=== PATIENT | female | born 1965 | race Caucasian/White ===

== ENCOUNTER 2016-10-11 12:10 | Observation (INO) | payer MEDICAID ==
[2016-10-11 12:16] VITALS: RESP 18
--- NOTE | 2016-10-11 12:56 | C.PDOC ---
History Of Present Illness 51-year-old female, PMHx includes Diabetes, presents to the emergency department with complaints of pain due to sunburn. States sunscreen did not work. Patient notes no relief with NSAID last night, and reports a mild headache. Patients secondary complaint is an asthma exacerbation, and she is requesting a treatment. Denies fevers, chest pain, nausea/vomiting, or chills. Time Seen by Provider: 10/11/16 12:50 Chief Complaint (Nursing): Dizziness/Lightheaded History Per: Patient History/Exam Limitations: no limitations Onset/Duration Of Symptoms: Days Current Symptoms Are (Timing): Still Present Past Medical History Reviewed: Historical Data, Nursing Documentation, Vital Signs Vital Signs: Last Vital Signs Temp 97.6 F 10/11/16 14:54 Pulse 77 10/11/16 14:54 Resp 18 10/11/16 14:54 BP 107/70 10/11/16 14:54 Pulse Ox 99 10/11/16 15:30 - Medical History PMH: Asthma, Diabetes (IDDM), Seizures Surgical History: Cholecystectomy Family History: States: No Known Family Hx - Social History Hx Tobacco Use: No Hx Alcohol Use: Yes Hx Substance Use: No - Immunization History Hx Tetanus Toxoid Vaccination: Yes Hx Influenza Vaccination: Yes Hx Pneumococcal Vaccination: Yes Review Of Systems Except As Marked, All Systems Reviewed And Found Negative. Constitutional: Negative for: Fever Cardiovascular: Negative for: Chest Pain Respiratory: Positive for: Shortness of Breath, Wheezing Gastrointestinal: Negative for: Nausea, Vomiting Skin: Positive for: Other (sunburn) Physical Exam - Physical Exam Appears: Non-toxic Skin: Warm, Other (FIRST DEGREE ROCHE TO FACE, CHEST, B/L ARMS, UPPER BACK AND B /L LEGS) Head: Atraumatic, Normacephalic Eye(s): bilateral: Normal Inspection Nose: Normal Oral Mucosa: Moist Lips: Normal Appearing Neck: Normal ROM Cardiovascular: Rhythm Regular, No Murmur Respiratory: Decreased Breath Sounds (B/L), No Accessory Muscle Use, Wheezing ( expiratory B/L), Other (No retractions) Extremity: Normal ROM Neurological/Psych: Oriented x3, Normal Speech ED Course And Treatment O2 Sat by Pulse Oximetry: 99 ED OBSERVATION Discharge: Yes Date of observation admission: 10/11/16 Time of observation admission: 12:45 - Observation admission statement Patient is being placed in observation because:: SUNBURN, HUNG; ASTHMA - Goals of Observation Goals of observation are:: SX IMPROVE - Progress Note Progress Note: 10/11/16 14:26 FEELS BETTER, REQUESTING ANTI ITCH MEDS. Disposition Counseled Patient/Family Regarding: Diagnosis, Need For Followup, Rx Given - Disposition Disposition: HOME/ ROUTINE Disposition Time: 14:27 Condition: IMPROVED - Clinical Impression Clinical Impression: Asthma exacerbation, Sunburn of first degree - PA / SUBSTANCE ADDICTION COORDINATOR / Resident Statement MD/DO has reviewed & agrees with the documentation as recorded. - Scribe Statement The provider has reviewed the documentation as recorded by the Scribe (William Whitfield) All medical record entries made by the Scribe were at my direction and personally dictated by me. I have reviewed the chart and agree that the record accurately reflects my personal performance of the history, physical exam, medical decision making, and the department course for this patient. I have also personally directed, reviewed, and agree with the discharge instructions and disposition.
[2016-10-11] MEDS ORDERED: Albuterol 0.083% Inhal Sol (2.5 mg/3 mL) UD INH STA ×3 (13:06→13:09)
[2016-10-11] MEDS ORDERED: Sodium Chloride 0.9% 1,000 ML IV ONE (13:07)
[2016-10-11] MEDS ORDERED: Albuterol 0.083% Inhal Sol (2.5 mg/3 mL) UD ONE (13:10)
[2016-10-11] MEDS ORDERED: Morphine 4 MG/ML VIAL ONE (13:16)
[2016-10-11] MEDS ORDERED: Sodium Chloride 0.9% 1,000 ML ONE (13:16)
[2016-10-11] MEDS ORDERED: DiphenhydrAMINE 50 mg/ml Inj ONE (14:15)
[2016-10-11] MEDS ORDERED: DiphenhydrAMINE 50 mg/ml Inj IVP STA (14:21)
[2016-10-11 14:54] VITALS: BP 107/70; PULSE 77; TEMP 97.6
[2016-10-11 15:31] VITALS: O2SAT 99
== END 2016-10-11 14:28 | disposition home or self-care (01) ==
LOC: C.ER 12:10 → C.9OBSV 12:45
PROVIDERS: ADMIT Emergency Medicine; ATTEND Emergency Medicine
DX: L55.0 Sunburn of first degree (principal); Z79.4 Long term (current) use of insulin; E11.9 Type 2 diabetes mellitus without complications; J45.901 Unspecified asthma with (acute) exacerbation
CPT/HCPCS: 96361; 96374; 96375; 99285; G0378; J1200; J1885; J2270; J7040

== ENCOUNTER 2016-10-27 21:47 | Emergency (ER) | payer MEDICAID ==
[2016-10-27 22:17] VITALS: TEMP 98
--- NOTE | 2016-10-27 22:31 | C.PDOC ---
History Of Present Illness 51F c/o headache that started 40 minutes prior. she says she gets seizures since age 21, about once a year, and they always started with this same headache. she also feels a "warm sensation" in her left arm and leg, also sx she normally gets before her seizures. she takes her meds daily but says she vomited after taking them this am. Time Seen by Provider: 10/27/16 22:19 Chief Complaint (Nursing): Headache Past Medical History Vital Signs: Last Vital Signs Temp 98 F 10/27/16 23:56 Pulse 74 10/27/16 23:56 Resp 16 10/27/16 23:56 BP 127/81 10/27/16 23:56 Pulse Ox 100 10/27/16 23:56 - Medical History PMH: Asthma, Diabetes (IDDM), Seizures Surgical History: Cholecystectomy Family History: States: Other Other Family History: nc - Social History Hx Tobacco Use: No Hx Alcohol Use: Yes Hx Substance Use: No - Immunization History Hx Tetanus Toxoid Vaccination: Yes Hx Influenza Vaccination: Yes Hx Pneumococcal Vaccination: Yes Review Of Systems Constitutional: Negative for: Fever, Chills ENT: Negative for: Throat Swelling Cardiovascular: Negative for: Chest Pain Respiratory: Negative for: Cough, Shortness of Breath Gastrointestinal: Positive for: Nausea. Negative for: Vomiting, Abdominal Pain Genitourinary: Negative for: Dysuria, Frequency Neurological: Positive for: Headache. Negative for: Weakness, Numbness, Altered Mental Status Physical Exam - Physical Exam Appears: Well, Non-toxic, No Acute Distress Skin: Warm, Dry Head: Atraumatic Eye(s): bilateral: PERRL, EOMI Nose: No Epistaxis Oral Mucosa: Moist Tongue: No Swelling Lips: No Swelling Cardiovascular: Rhythm Regular Respiratory: No Decreased Breath Sounds, No Accessory Muscle Use, No Rales, No Rhonchi, No Wheezing Gastrointestinal/Abdominal: Soft, No Tenderness Pulses: Left Radial: Normal Neurological/Psych: Oriented x3, Normal Cranial Nerves, No Cerebellar Signs, Normal Motor, Normal Sensation, Other (no focal deficits) ED Course And Treatment - Laboratory Results Result Diagrams: 10/27/16 22:53 10/27/16 22:53 O2 Sat by Pulse Oximetry: 99 Medical Decision Making Medical Decision Makinam pt feels better. Disposition - Disposition Referrals: Non [facility] Provider, [Primary Care Provider] - Disposition: HOME/ ROUTINE Disposition Time: 02:33 Condition: IMPROVED - Clinical Impression Clinical Impression: Headache
[2016-10-27] MEDS ORDERED: DiphenhydrAMINE 50 mg/ml Inj IVP STA (22:44)
[2016-10-27] MEDS ORDERED: Sodium Chloride 0.9% 1,000 ML IV ONE (22:44)
[2016-10-27 22:57] LABS: BASO # 0.1 K/uL (0.0-0.2); BASO % 0.8 % (0.0-2.0); EOS # 0.3 K/uL (0.0-0.7); EOS % 2.5 % (0.0-4.0); HEMOGLOBIN 11.3 g/dL (11.0-16.0); LYMPH # 3.3 K/uL (1.0-4.3); LYMPH % 28.1 % (20.0-40.0); MEAN CORPUSCULAR HEMOGLOBIN 24.1 pg (27.0-31.0); MEAN CORPUSCULAR HGB CONC 31.3 g/dL (33.0-37.0); MEAN PLATELET VOLUME 9.1 fL (7.2-11.7); MONO # 0.4 K/uL (0.0-0.8); MONO % 3.8 % (0.0-10.0); NEUT # 7.6 K/uL (1.8-7.0); NEUT % 64.8 % (50.0-75.0); RBC 4.69 Mil/uL (3.80-5.20); WHITE BLOOD COUNT 11.7 K/uL (4.8-10.8)
[2016-10-27] MEDS ORDERED: DiphenhydrAMINE 50 mg/ml Inj ONE (23:05)
[2016-10-27 23:07] LABS: ALB/GLOB RATIO 1.1 (1.0-2.1); ALT/SGPT 26 U/L (9-52); AST/SGOT 22 U/L (14-36); BLOOD UREA NITROGEN 6 mg/dL (7-17); GFR AFRICAN-AMERICAN > 60; GFR NON-AFRICAN AMERICAN > 60
[2016-10-27 23:08] LABS: CALCIUM 8.6 mg/dl (8.6-10.4)
--- NOTE | 2016-10-27 23:41 | CT ---
EXAM: CT Head Without Intravenous Contrast CLINICAL HISTORY: 51 years old, female; Pain; Headache; Patient HX: 03-20-15. Faxed already TECHNIQUE: Axial computed tomography images of the head/brain without intravenous contrast. This CT exam was performed using one or more of the following dose reduction techniques: automated exposure control, adjustment of the mA and/or kV according to patient size, and/or use of iterative reconstruction technique. COMPARISON: CT - HEAD W/O CONTRAST 03/20/2015 4:47:26 PM FINDINGS: Brain: No acute intracranial hemorrhage. No significant white matter disease. No edema. Ventricles: No significant ventriculomegaly. Bones: No acute displaced fracture. Sinuses: Mucoperiosteal thickening is identified within the bilateral ethmoid and right sphenoid sinuses. Mastoid air cells: Unremarkable as visualized. No mastoid effusion. IMPRESSION: No acute intracranial hemorrhage, or suspicious mass effect. Inflammatory sinus disease.
[2016-10-27 23:54] LABS: SQUAMOUS EPITHIAL < 1 /hpf (0-5); URINE BACTERIA RARE (<OCC); URINE BILIRUBIN NEGATIVE (NEGATIVE); URINE BLOOD 3+ (NEGATIVE); URINE CLARITY Clear (Clear); URINE COLOR Yellow (YELLOW); URINE GLUCOSE (UA) NORMAL (Normal); URINE LEUKOCYTE ESTERASE NEG Leu/uL (Negative); URINE NITRATE NEGATIVE (NEGATIVE); URINE PROTEIN NEGATIVE (NEGATIVE); URINE UROBILINOGEN NORMAL mg/dL (0.2-1.0)
[2016-10-27 23:57] VITALS: BP 127/81
[2016-10-28 03:08] VITALS: PULSE 78; RESP 20; O2SAT 100
== END 2016-10-28 03:05 | disposition home or self-care (01) ==
LOC: C.ER 21:47 → SUPCPDRO 21:47 → C.ER 10-28 03:05
DX: R51 Headache (principal)
CPT/HCPCS: 70450; 80053; 81001; 85025; 96374; 96375; 99284; J1200; J2765; J7040

== ENCOUNTER 2017-01-02 12:17 | Emergency (ER) | payer MEDICAID ==
[2017-01-02] MEDS ORDERED: Albuterol-Ipratrop 3 mg / 0.5 (3 ml) UD ONE (12:57)
[2017-01-02] MEDS ORDERED: Albuterol-Ipratrop 3 mg / 0.5 (3 ml) UD INH STA (14:19)
--- NOTE | 2017-01-02 14:45 | C.PDOC ---
History Of Present Illness 51 y/o female with Hx of Asthma, DM and seizures presents to ED with complaints of vomiting for 3 days, dizziness, sob, full body aches and adnexal tenderness since last night. Patient also reports headaches with associated "feeling of room spinning that lasts 5 minutes". Pain is 8/10 non radiating and also states she has cough while in bed and has to use albuterol more frequently. Patient state she had her menses yesterday after 3 months and reports positive test. No other complaints at this time. Time Seen by Provider: 01/02/17 13:52 Chief Complaint (Nursing): Shortness Of Breath History Per: Patient History/Exam Limitations: no limitations Onset/Duration Of Symptoms: Days Current Symptoms Are (Timing): Still Present Past Medical History Reviewed: Historical Data, Nursing Documentation, Vital Signs Vital Signs: Last Vital Signs Temp 97.9 F 01/02/17 12:40 Pulse 85 01/02/17 12:40 Resp 20 01/02/17 12:40 BP 119/88 01/02/17 12:40 Pulse Ox 98 01/02/17 14:48 - Medical History PMH: Asthma, Diabetes (IDDM), Seizures Surgical History: Cholecystectomy Family History: States: No Known Family Hx - Social History Hx Tobacco Use: No Hx Alcohol Use: Yes Hx Substance Use: No - Immunization History Hx Tetanus Toxoid Vaccination: Yes Hx Influenza Vaccination: Yes Hx Pneumococcal Vaccination: Yes Review Of Systems Except As Marked, All Systems Reviewed And Found Negative. Constitutional: Negative for: Fever, Chills Respiratory: Positive for: Shortness of Breath Gastrointestinal: Positive for: Vomiting. Negative for: Nausea, Abdominal Pain Genitourinary: Negative for: Dysuria, Frequency Musculoskeletal: Negative for: Back Pain Skin: Negative for: Rash Neurological: Positive for: Headache, Dizziness. Negative for: Weakness, Numbness Physical Exam - Physical Exam Appears: Other (morbidly obese) Skin: Warm, Dry, No Rash Head: Atraumatic Eye(s): bilateral: Normal Inspection Oral Mucosa: Moist Neck: Normal ROM, Supple Chest: Symmetrical Cardiovascular: Rhythm Regular, No Murmur Respiratory: No Rales, No Rhonchi, Wheezing Gastrointestinal/Abdominal: Soft, Tenderness (adnexal), No Guarding, No Rebound Back: No CVA Tenderness, No Paraspinal Tenderness Neurological/Psych: Oriented x3 ED Course And Treatment - Laboratory Results Lab Interpretation: Abnormal (UA with blood and few WBC's c/w MP) Urine POC: Negative O2 Sat by Pulse Oximetry: 98 (RA) Pulse Ox Interpretation: Normal Reevaluation Time: 15:22 Reassessment Condition: Improved Medical Decision Making Medical Decision Making: mild asthma exacerbation with ? mild viral syndrome defer PO steroids for pt with poor nebulizer compliance @ home and overall benign presentation Pt NOT . Disposition Doctor Will See Patient In The: Office Counseled Patient/Family Regarding: Studies Performed, Diagnosis - Disposition Disposition: HOME/ ROUTINE Disposition Time: 15:23 Condition: GOOD Forms: [facility] (Danish) - Clinical Impression Clinical Impression: Asthma, Viral syndrome, Irregular menstrual bleeding - Scribe Statement The provider has reviewed the documentation as recorded by the Harris Cespedes All medical record entries made by the Harris were at my direction and personally dictated by me. I have reviewed the chart and agree that the record accurately reflects my personal performance of the history, physical exam, medical decision making, and the department course for this patient. I have also personally directed, reviewed, and agree with the discharge instructions and disposition.
[2017-01-02 14:50] LABS: RBC URINE 79 /hpf (0-3); URINE BILIRUBIN NEGATIVE (NEGATIVE); URINE BLOOD 3+ (NEGATIVE); URINE COLOR Yellow (YELLOW); URINE GLUCOSE (UA) NORMAL (Normal); URINE KETONE NEGATIVE (NEGATIVE); URINE LEUKOCYTE ESTERASE 2+ Leu/uL (Negative); URINE PROTEIN 1+ mg/dL (NEGATIVE); URINE UROBILINOGEN NORMAL mg/dL (0.2-1.0); WBC URINE 41 /hpf (0-5)
[2017-01-02 15:47] VITALS: BP 122/78; PULSE 81; RESP 18; TEMP 98.1; O2SAT 99
== END 2017-01-02 15:47 | disposition home or self-care (01) ==
LOC: C.ER 12:17
DX: J45.909 Unspecified asthma, uncomplicated (principal); B34.9 Viral infection, unspecified; N92.6 Irregular menstruation, unspecified

== ENCOUNTER 2017-01-31 23:30 | Inpatient (IN) | payer MEDICAID ==
--- NOTE | 2017-01-31 23:34 | C.PDOC ---
History Of Present Illness patient presents with increased wheezing, speaking in complete sentences. No f/c /n/v. States that she got short of breath. Arrived via BLS. Nebulizer treatments initiated Time Seen by Provider: 01/31/17 23:33 History/Exam Limitations: no limitations Onset/Duration Of Symptoms: Hrs (1) Current Symptoms Are (Timing): Worse Associated Symptoms: Dyspnea, Cough, Other (wheezing) Preciptating Factors: None Severity: Severe Pain Scale Rating Of: 8 Recent travel outside of the [place]: No Additional History Per: EMS, Family - Asthma History Medication Use: Daily Rescue Medications: See Home Medication List Control Medications: See Home Medication List Past Medical History Reviewed: Historical Data, Nursing Documentation, Vital Signs Vital Signs: Last Vital Signs Temp 98.0 F 01/31/17 23:30 Pulse 91 H 01/31/17 23:30 Resp 20 01/31/17 23:35 BP 149/92 H 01/31/17 23:30 Pulse Ox 100 02/01/17 00:22 - Medical History PMH: Asthma, Diabetes (IDDM), Seizures Surgical History: Cholecystectomy Family History: States: No Known Family Hx - Social History Hx Tobacco Use: No Hx Alcohol Use: Yes Hx Substance Use: No - Immunization History Hx Tetanus Toxoid Vaccination: Yes Hx Influenza Vaccination: Yes Hx Pneumococcal Vaccination: Yes Review Of Systems Constitutional: Negative for: Fever, Chills Eyes: Negative for: Vision Change ENT: Negative for: Throat Pain Cardiovascular: Negative for: Chest Pain, Palpitations Respiratory: Positive for: Shortness of Breath, Wheezing Gastrointestinal: Positive for: Abdominal Pain (rlq). Negative for: Nausea, Vomiting Genitourinary: Negative for: Dysuria Musculoskeletal: Negative for: Back Pain Skin: Negative for: Rash, Lesions Neurological: Negative for: Weakness Psych: Negative for: Anxiety Physical Exam - Physical Exam Appears: In Acute Distress Skin: Warm, Dry Head: Normacephalic Eye(s): bilateral: Normal Inspection Nose: Normal Oral Mucosa: Moist Neck: Trachea Midline, Supple Chest: Symmetrical Cardiovascular: Rhythm Regular Respiratory: Decreased Breath Sounds, No Rales, No Rhonchi, Wheezing Gastrointestinal/Abdominal: Soft, Tenderness (rlq, morbidly obese), No Guarding Back: Normal Inspection Extremity: Normal ROM Extremity: Bilateral: Atraumatic, Normal Color And Temperature Pulses: Left Dorsalis Pedis: Normal, Right Dorsalis Pedis: Normal Neurological/Psych: Oriented x3, Normal Speech, Normal Cognition Gait: Unable To Assess ED Course And Treatment - Laboratory Results Result Diagrams: 01/31/17 23:39 01/31/17 23:39 ECG: Interpreted By Me, Viewed By Me ECG Rhythm: Sinus Rhythm (80), Nonspecific Changes O2 Sat by Pulse Oximetry: 100 Pulse Ox Interpretation: Normal - Radiology CXR: Interpreted by Me, Viewed By Me CXR Interpretation: Yes: Other (top nl heart, ? lll small effusion). No: Infiltrates, Fracture, Pnemothorax Progress Note: pt refused abg. 12:10 feels better. much better air movement and less wheezing Critical Care Time - Critical Care Note Total Time (in mins): 30 Documented critical care: time excludes all time spent performing seperately billable procedures. Disposition Discussed With Dr.: Cesar Vasquez Comment: accepted the pt on his service and took over the care at 12:54 AM Doctor Will See Patient In The: ED Counseled Patient/Family Regarding: Studies Performed, Diagnosis - Disposition Disposition: HOSPITALIZED Disposition Time: 23:34 Condition: GUARDED - POA Present On Arrival: None - Clinical Impression Clinical Impression: Exacerbation of asthma Decision To Admit - Pt Status Changed To: Hospital Disposition Of: Inpatient - Admit Certification Admit to Inpatient:: After my assessment, the patient will require hospitalization for at least two midnights. This is because of the severity of symptoms shown, intensity of services needed, and/or the medical risk in this patient being treated as an outpatient. - InPatient: Physician Admission Certification:: After my assessment, the patient will require hospitalization for at least two midnights. This is because of the severity of symptoms shown, intensity of services needed, and/or the medical risk in this patient being treated as an outpatient. - . Bed Request Type: Regular Admitting Physician: Cesar Vasquez Patient Diagnosis: Exacerbation of asthma
[2017-01-31] MEDS ORDERED: Albuterol-Ipratrop 3 mg / 0.5 (3 ml) UD ONE ×2 (23:35→23:49)
[2017-01-31] MEDS ORDERED: Sodium Chloride 0.9% 1,000 ML IV ONE (23:35)
[2017-01-31 23:36] VITALS: BMI 56.7
[2017-01-31 23:42] LABS: BASO # 0.1 K/uL (0.0-0.2); BASO % 0.6 % (0.0-2.0); EOS # 0.3 K/uL (0.0-0.7); EOS % 3.1 % (0.0-4.0); HEMATOCRIT 34.7 % (34.0-47.0); LYMPH # 4.1 K/uL (1.0-4.3); LYMPH % 37.7 % (20.0-40.0); MEAN CELL VOLUME 76.4 fL (81.0-99.0); MEAN CORPUSCULAR HEMOGLOBIN 24.9 pg (27.0-31.0); MEAN CORPUSCULAR HGB CONC 32.7 g/dL (33.0-37.0); MEAN PLATELET VOLUME 8.7 fL (7.2-11.7); MONO # 0.5 K/uL (0.0-0.8); MONO % 5.1 % (0.0-10.0); RED CELL DISTRIBUTION WIDTH 16.1 % (11.5-14.5); WHITE BLOOD COUNT 10.8 K/uL (4.8-10.8)
[2017-01-31] MEDS: Albuterol-Ipratrop 3 mg / 0.5 (3 ml) UD IH SCH (23:50)
[2017-01-31 23:52] LABS: CHLORIDE 102 mmol/L (98-107); POTASSIUM 3.9 mmol/L (3.6-5.2); SODIUM 138 mmol/L (132-148)
[2017-01-31 23:54] LABS: AST/SGOT 18 U/L (14-36); BILIRUBIN,TOTAL 0.6 mg/dL (0.2-1.3); CARBON DIOXIDE 24 mmol/L (22-30); GFR AFRICAN-AMERICAN > 60
[2017-01-31 23:55] LABS: ALB/GLOB RATIO 0.9 (1.0-2.1); ALKALINE PHOSPHATASE 83 U/L (38-126); ALT/SGPT 27 U/L (9-52); BLOOD UREA NITROGEN 5 mg/dL (7-17); CALCIUM 8.9 mg/dl (8.6-10.4); GLUCOSE,RANDOM 104 mg/dL (65-105); TOTAL PROTEIN 8.3 g/dL (6.3-8.3)
[2017-02-01] MEDS: Albuterol-Ipratrop 3 mg / 0.5 (3 ml) UD IH SCH ×2 (00:05→00:20)
[2017-02-01 00:17] LABS: VENOUS BLOOD GAS BASE EXCESS 4.3 mmol/L (0.0-2.0); VENOUS BLOOD GAS PCO2 47 mmHg (40-60); VENOUS BLOOD PH 7.41 (7.32-7.43)
[2017-02-01] MEDS ORDERED: Albuterol-Ipratrop 3 mg / 0.5 (3 ml) UD ONE (00:44)
--- NOTE | 2017-02-01 03:23 | CP.PCM.HP ---
<Tran PoseyJennifer - Last Filed: 02/01/17 03:23> History of Present Illness - History of Present Illness History of Present Illness: Patient is a 51 years old female with a past medical history of asthma, DM, and seizures, who presents to the ED with shortness of breath, cough, and wheezing. Patient reports her symptoms started Monday when she was cleaning her room. She says she uses Ventolin and Dulera 2-3 times daily and a nebulizer about once per day. She states she used her inhalers when her symptoms worsened on Monday, but they only minimally helped. She also reports she has chest tightness, a fast heart beat, and feels tired. She says her symptoms are better when she lays down. Patient states that she started to have RUQ and RLQ pain 1- 2 hours prior to coming to the hospital. She describes the pain as sharp, intermittent and radiates to the center of her back. Patient admits to having increased urinary frequency and mild pain with urination that started today. Patient currently denies having chest pain, fevers, weakness, dizziness, sore throat, nausea, vomiting, hematuria, diarrhea, constipation, and hemoptysis PMD: Dr. Sonya Wallace PMHx: Asthma, DM, Seizure disorder SurgHx: Cholecystectomy (20+ years ago) FamHx: "everyone in the family has had strokes"; "cancer runs in the family" ( unknown type) SocHx: denies tobacco and drug use; social alcohol use; lives with two children in house; unemployed-disabled Allergies: NKDA Medications: Ventolin Inhaler, Dulera inhaler, Nebulizer, Insulin 18units AM&PM , Dilantin 100mg AM&PM Present on Admission - Present on Admission Any Indicators Present on Admission: No Review of Systems - Constitutional Constitutional: Fatigue, Headache. absent: Chills, Excessive Sweating, Fever, Weakness - EENT Eyes: absent: Change in Vision Ears: absent: Dizziness - Cardiovascular Cardiovascular: Dyspnea, Dyspnea on Exertion, Rapid Heart Rate. absent: Chest Pain, Leg Edema, Palpitations - Respiratory Respiratory: Cough (white phlegm), Dyspnea, Wheezing. absent: Hemoptysis, Excessive Mucous Production, Change in Mucous Color - Gastrointestinal Gastrointestinal: Abdominal Pain (RUQ & RLQ). absent: Constipation, Diarrhea, Nausea, Vomiting - Genitourinary Genitourinary: Dysuria, Urinary Frequency. absent: Hematuria, Pyuria - Musculoskeletal Musculoskeletal: Back Pain (Abdominal pain radiates to center of back) - Endocrine Endocrine: Fatigue. absent: Palpitations - Hematologic/Lymphatic Hematologic: Easy Bleeding, Easy Bruising Past Patient History - Infectious Disease Hx of Infectious Diseases: None - Past Medical History & Family History Past Medical History?: Yes - Past Social History Smoking Status: Never Smoked - CARDIAC Other/Comment: [place] - PULMONARY Hx Respiratory Disorders: Yes Hx Asthma: Yes - NEUROLOGICAL Hx Neurological Disorder: Yes Hx Seizures: Yes - HEENT Hx HEENT Problems: No - RENAL Hx Chronic Kidney Disease: No - ENDOCRINE/METABOLIC Hx Endocrine Disorders: Yes Hx Diabetes Mellitus Type 2: Yes - HEMATOLOGICAL/ONCOLOGICAL Hx Blood Disorders: No - INTEGUMENTARY Hx Dermatological Problems: No - MUSCULOSKELETAL/RHEUMATOLOGICAL Hx Musculoskeletal Disorders: No Hx Falls: No - GASTROINTESTINAL Hx Gastrointestinal Disorders: No - GENITOURINARY/GYNECOLOGICAL Hx Genitourinary Disorders: No - PSYCHIATRIC Hx Psychophysiologic Disorder: No Hx Substance Use: No - SURGICAL HISTORY Hx Surgeries: Yes Hx Cholecystectomy: Yes - ANESTHESIA Hx Anesthesia: Yes Hx Anesthesia Reactions: No Hx Malignant Hyperthermia: No Meds Allergies/Adverse Reactions: Allergies Allergy/AdvReac Type Severity Reaction Status Date / Time No Known Allergies Allergy Verified 01/02/17 12:44 Physical Exam - Head Exam Head Exam: ATRAUMATIC, NORMAL INSPECTION - Eye Exam Eye Exam: EOMI, Normal appearance Pupil Exam: PERRL - ENT Exam ENT Exam: Mucous Membranes Moist - Respiratory Exam Respiratory Exam: Wheezes. absent: Clear to Auscultation Bilateral, Rales, Rhonchi Additional comments: on 2L nasal cannula - Cardiovascular Exam Cardiovascular Exam: REGULAR RHYTHM, +S1, +S2. absent: Bradycardia, Tachycardia - GI/Abdominal Exam GI & Abdominal Exam: Normal Bowel Sounds, Soft, Tenderness (RUQ & RLQ). absent : Distended, Firm, Guarding, Mass, Rebound - Extremities Exam Extremities exam: Positive for: pedal pulses present. Negative for: calf tenderness, pedal edema, tenderness - Back Exam Back exam: absent: CVA tenderness (L), CVA tenderness (R) - Neurological Exam Neurological exam: Alert, Oriented x3 - Psychiatric Exam Psychiatric exam: Normal Affect, Normal Mood - Skin Skin Exam: Dry, Intact, Normal Color, Warm Results - Vital Signs Recent Vital Signs: Last Vital Signs Temp 98.0 F 01/31/17 23:30 Pulse 83 02/01/17 01:00 Resp 18 02/01/17 01:00 BP 138/78 02/01/17 01:00 Pulse Ox 98 02/01/17 02:39 - Labs Result Diagrams: 01/31/17 23:39 01/31/17 23:39 Labs: Laboratory Results - last 24 hr 01/31/17 01/31/17 02/01/17 23:39 23:39 00:05 WBC 10.8 RBC 4.54 Hgb 11.3 Hct 34.7 MCV 76.4 L MCH 24.9 L MCHC 32.7 L RDW 16.1 H Plt Count 298 MPV 8.7 Neut % (Auto) 53.5 Lymph % (Auto) 37.7 [place] % (Auto) 5.1 Eos % (Auto) 3.1 Baso % (Auto) 0.6 Neut # 5.8 Lymph # 4.1 [place] # 0.5 Eos # 0.3 Baso # 0.1 pO2 56 H VBG pH 7.41 VBG pCO2 47 VBG HCO3 28.1 VBG Total CO2 31.2 H VBG O2 Sat (Calc) 94.0 H VBG Base Excess 4.3 H VBG Potassium 3.9 Glucose 148 H Lactate 1.4 Blood Gas Comments Po2 56 and glu 148 critical Crit Value Called To Jhonny gardiner rn Crit Value Called By Mendel love Crit Value Read Back N Blood Gas Notified Time 16 Sodium 138 140.0 Potassium 3.9 Chloride 102 107.0 Carbon Dioxide 24 Anion Gap 15 BUN 5 L Creatinine 0.7 Est GFR ( Amer) > 60 Est GFR (Non-Af Amer) > 60 Random Glucose 104 Calcium 8.9 Total Bilirubin 0.6 AST 18 ALT 27 Alkaline Phosphatase 83 Total Protein 8.3 Albumin 4.0 Globulin 4.3 H Albumin/Globulin Ratio 0.9 L Venous Blood Potassium 3.9 Assessment & Plan (1) Asthma exacerbation Assessment and Plan: Patient received nebulizer treatment and one dose of IV Solumedrol 125mg in ED. CXR: f/u results Started Duonebs 2ml INH Q6 prn Started Solumedrol 40mg IV Q6h O2 via nasal cannula as needed. Status: Acute (2) Abdominal pain Assessment and Plan: Abdominal Ultrasound: f/u results Urinalysis: f/u results Status: Acute (3) Diabetes Assessment and Plan: Continue home medication- Insulin 18units AM&PM. Monitor blood glucose, Accuchecks A1c- f/u results Status: Chronic (4) Seizure Assessment and Plan: Continue home medications- Dilantin 100mg PO BID Status: Chronic (5) Prophylactic measure Assessment and Plan: SCDs Pepcid 20mg PO BID Heparin 5,000sc Q8h Heart Healthy Diet Activity as tolerated Status: Acute <Cesar Vasquez - Last Filed: 02/01/17 06:43> Results - Vital Signs Recent Vital Signs: Last Vital Signs Temp 97.5 F L 02/01/17 02:15 Pulse 83 02/01/17 02:15 Resp 20 02/01/17 02:15 BP 126/73 02/01/17 02:15 Pulse Ox 98 02/01/17 02:39 - Labs Result Diagrams: 01/31/17 23:39 01/31/17 23:39 Labs: Laboratory Results - last 24 hr 01/31/17 01/31/17 02/01/17 23:39 23:39 00:05 WBC 10.8 RBC 4.54 Hgb 11.3 Hct 34.7 MCV 76.4 L MCH 24.9 L MCHC 32.7 L RDW 16.1 H Plt Count 298 MPV 8.7 Neut % (Auto) 53.5 Lymph % (Auto) 37.7 [place] % (Auto) 5.1 Eos % (Auto) 3.1 Baso % (Auto) 0.6 Neut # 5.8 Lymph # 4.1 [place] # 0.5 Eos # 0.3 Baso # 0.1 pO2 56 H VBG pH 7.41 VBG pCO2 47 VBG HCO3 28.1 VBG Total CO2 31.2 H VBG O2 Sat (Calc) 94.0 H VBG Base Excess 4.3 H VBG Potassium 3.9 Glucose 148 H Lactate 1.4 Blood Gas Comments Po2 56 and glu 148 critical Crit Value Called To Jhonny gardiner rn Crit Value Called By Mendel love Crit Value Read Back N Blood Gas Notified Time 16 Sodium 138 140.0 Potassium 3.9 Chloride 102 107.0 Carbon Dioxide 24 Anion Gap 15 BUN 5 L Creatinine 0.7 Est GFR ( Amer) > 60 Est GFR (Non-Af Amer) > 60 Random Glucose 104 Calcium 8.9 Total Bilirubin 0.6 AST 18 ALT 27 Alkaline Phosphatase 83 Total Protein 8.3 Albumin 4.0 Globulin 4.3 H Albumin/Globulin Ratio 0.9 L Venous Blood Potassium 3.9 Assessment & Plan - Date & Time Date: 02/01/17 (I have seen and examined the patient. I agree with the findings and plan of care as documented by Dr. Posey. Patient with asthma exacertion. Solumedrol, nebs, and oxygen. Peak flows. Also with generalized abdominal pain. No guarding or rebound. Check ultrasound of abdomen. Also with history of diabetes and seizure. Continue home meds. Accuchecks. NISS as needed. Monitor for acute changes.) Time: 06:39 Attending/Attestation - Attestation I have personally seen and examined this patient.: Yes I have fully participated in the care of the patient.: Yes I have reviewed all pertinent clinical information: Yes
[2017-02-01] MEDS: MethylPREDNISolone 40 mg Vial IVP SCH ×4 (03:35→21:58)
[2017-02-01 04:35] VITALS: RESP 20
--- NOTE | 2017-02-01 07:12 | CP.PCM.PN ---
<Jessica Baires - Last Filed: 02/01/17 09:56> Subjective - Date & Time of Evaluation Date of Evaluation: 02/01/17 Time of Evaluation: 07:00 - Subjective Subjective: Medicine Note for Dr. Hartman Patient was seen and examined at bedside. Patient reports her breathing has not improved. She ambulated to the bathroom and felt very SOB. She reports using her albuterol inhaler 3-4 times a day and nebulizer 2-3 times a day. She reports some right sided abdominal pain. She admitted to a nonproductive cough, when she becomes very SOB. Denied fever, chills, headache, chest pain, n/v/d/c, or urinary symptoms. Objective - Vital Signs/Intake and Output Vital Signs (last 24 hours): Temp Pulse Resp BP Pulse Ox 97.5 F L 83 20 126/73 98 02/01/17 02:15 02/01/17 02:15 02/01/17 02:15 02/01/17 02:15 02/01/17 02:39 Intake and Output: 02/01/17 02/01/17 06:59 18:59 Intake Total 120 Balance 120 - Medications Medications: Current Medications Albuterol/Ipratropium (Duoneb 3 Mg/0.5 Mg (3 Ml) Ud) 3 ml INH RQ6 PRN PRN Reason: Shortness of Breath Famotidine (Pepcid) 20 mg PO BID [facility] Heparin Sodium (Porcine) (Heparin) 5,000 units SC Q12 [facility] Insulin Human Isoph/Insulin Regular (Novolin 70/30 (70/30 Units/Ml) 10 Ml) 18 units SC BIDCC [facility] Methylprednisolone (Solu-Medrol) 40 mg IVP Q6H [facility] Last Admin: 02/01/17 03:35 Dose: 40 mg Phenytoin Sodium (Dilantin) 100 mg PO BID [facility] - Labs Labs: 01/31/17 23:39 01/31/17 23:39 - Additional Findings Additional findings: - Head Exam Head Exam: ATRAUMATIC, NORMAL INSPECTION - Eye Exam Eye Exam: EOMI, Normal appearance Pupil Exam: PERRL - ENT Exam ENT Exam: Mucous Membranes Moist - Respiratory Exam Respiratory Exam: Wheezes bilaterally at lower lung bases. absent: Clear to Auscultation Bilateral, Rales, Rhonchi Additional comments: on 2L nasal cannula - Cardiovascular Exam Cardiovascular Exam: REGULAR RHYTHM, +S1, +S2. absent: Bradycardia, Tachycardia - GI/Abdominal Exam GI & Abdominal Exam: Normal Bowel Sounds, Soft, Tenderness (RUQ & RLQ). absent : Distended, Firm, Guarding, Mass, Rebound - Extremities Exam Extremities exam: Positive for: pedal pulses present. Negative for: calf tenderness, pedal edema, tenderness - Back Exam Back exam: absent: CVA tenderness (L), CVA tenderness (R) - Neurological Exam Neurological exam: Alert, Oriented x3 - Psychiatric Exam Psychiatric exam: Normal Affect, Normal Mood - Skin Skin Exam: Dry, Intact, Normal Color, Warm Assessment and Plan - Assessment and Plan (Free Text) Plan: Asthma exacerbation CXR: No definite, interval acute cardiopulmonary disease appreciated. Technically limited study as discussed above. ABG: PO2: 56, PCO2 47, Pulmonology consulted- Dr. Blackmon - help appreciated Started Duonebs 2ml INH Q6 prn Started Solumedrol 40mg IV Q6h Started on Singular and Advair BID O2 via nasal cannula PRN Abdominal pain Most likely 2/2 to excessive coughing Abdominal Ultrasound: f/u results Urinalysis: + 3 glucose, +1 blood Diabetes Accuchecks Continue home medication- Insulin 18units BID, ISS- high A1c- 6.9 Seizure Continue home medications- Dilantin 100mg PO BID Prophylactic measure GI PPX: Pepcid 20mg PO BID DVT PPX: SCDs, Heparin 5,000sc Q12h Carb Consistent Diet Activity as tolerated DW Viry Sevilla DO, PGY-1 <Shlomo Hartman H - Last Filed: 02/01/17 13:16> Objective - Vital Signs/Intake and Output Vital Signs (last 24 hours): Temp Pulse Resp BP Pulse Ox 98.1 F 82 20 127/66 97 02/01/17 08:00 02/01/17 08:00 02/01/17 08:00 02/01/17 08:00 02/01/17 08:00 Intake and Output: 02/01/17 02/01/17 06:59 18:59 Intake Total 120 Balance 120 - Medications Medications: Current Medications Albuterol/Ipratropium (Duoneb 3 Mg/0.5 Mg (3 Ml) Ud) 3 ml INH RQ6 PRN PRN Reason: Shortness of Breath Last Admin: 02/01/17 07:57 Dose: 3 ml Famotidine (Pepcid) 20 mg PO BID [facility] Last Admin: 02/01/17 09:04 Dose: 20 mg Heparin Sodium (Porcine) (Heparin) 5,000 units SC Q12 [facility] Last Admin: 02/01/17 09:04 Dose: 5,000 units Insulin Human Isoph/Insulin Regular (Novolin 70/30 (70/30 Units/Ml) 10 Ml) 18 units SC BIDCC [facility] Last Admin: 02/01/17 08:01 Dose: 18 units Insulin Human Regular (Novolin R) 0 unit SC ACHS [facility] PRN Reason: Protocol Last Admin: 02/01/17 12:21 Dose: 8 unit Methylprednisolone (Solu-Medrol) 40 mg IVP Q6H [facility] Last Admin: 02/01/17 08:59 Dose: 40 mg Montelukast Sodium (Singulair) 10 mg PO HS [facility] Phenytoin Sodium (Dilantin) 100 mg PO BID [facility] Last Admin: 02/01/17 09:04 Dose: 100 mg Fluticasone/Salmeterol (Advair Diskus 500/50) 1 puff INH RQ12 [facility] - Labs Labs: 01/31/17 23:39 01/31/17 23:39 Attending/Attestation - Attestation I have personally seen and examined this patient.: Yes I have fully participated in the care of the patient.: Yes I have reviewed all pertinent clinical information, including history, physical exam and plan: Yes Notes (Text): Medical attending: Patient was seen and examined by me, agrees the above note by durable medical equipment technician. The patient came in overnight secondary to what appears to be an asthma exacerbation. 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 It appears the patient has a very uncontrolled asthma quite some time now. She was placed on Solu-Medrol overnight and continue this. Will add on Singulair, as well as Advair as well. She didn't have a little small peak flow device at bedside surgery get 1 just see how well she does. He also made some adjustments to her insulin as well as sterile rates are probably can cause her to have a high blood sugar thank you Shlomo Hartman
--- NOTE | 2017-02-01 07:31 | RAD ---
PROCEDURE: CHEST RADIOGRAPH, 1 VIEW HISTORY: SOB COMPARISON: Portable chest 05/31/2016 prior FINDINGS: LUNGS: No definitive infiltrate appreciated. There is technical difficulty penetrating the chest due to morbid obesity. PLEURA: No pneumothorax or pleural fluid seen. CARDIOVASCULAR: Referral technique likely technically magnified as the cardiac silhouette though mild cardiomegaly is not completely excluded. No definite pulmonary vascular derangement identified. OSSEOUS STRUCTURES: No significant abnormalities. VISUALIZED UPPER ABDOMEN: Normal. OTHER FINDINGS: None. IMPRESSION: No definite, interval acute cardiopulmonary disease appreciated. Technically limited study as discussed above.
[2017-02-01] MEDS: Albuterol-Ipratrop 3 mg / 0.5 (3 ml) UD INH PRN (07:57)
[2017-02-01] MEDS: (Novolin 70/30) NPH/Regular 70/30 Units/ml 10 ml vial SC SCH ×2 (08:01→17:51)
[2017-02-01 08:16] LABS: RBC URINE 2 /hpf (0-3); URINE BILIRUBIN NEGATIVE (NEGATIVE); URINE BLOOD 1+ (NEGATIVE); URINE COLOR Yellow (YELLOW); URINE GLUCOSE (UA) 3+ mg/dL (Normal); URINE KETONE NEGATIVE (NEGATIVE); URINE LEUKOCYTE ESTERASE NEG Leu/uL (Negative); URINE PROTEIN NEGATIVE (NEGATIVE); URINE UROBILINOGEN NORMAL mg/dL (0.2-1.0); WBC URINE 1 /hpf (0-5)
--- NOTE | 2017-02-01 10:47 | US ---
HISTORY: Abdominal pain RUQ, RLQ COMPARISON: Abdomen limited ultrasound 03/20/[address] with contrast 07/29/2013. TECHNIQUE: Sonographic evaluation of the abdomen. FINDINGS: LIVER: Measures 19.1 cm. Further increased echogenicity throughout the liver is appreciated suggesting worsening hepatic steatosis without focal mass identified grossly. Hepatomegaly is again identified. GALLBLADDER: Prior cholecystectomy again evident. Normal CBD caliber. COMMON BILE DUCT: Measures 5.2 mm. No stones. No dilatation. PANCREAS: The pancreas body is unremarkable the remainder markedly obscured by overlying bowel gas. RIGHT KIDNEY: Measures 11.1cm. Normal echogenicity. No calculus, mass, or hydronephrosis. LEFT KIDNEY: Measures 11.9cm. Normal echogenicity. No calculus, mass, or hydronephrosis. SPLEEN: Nonfocal but enlarged spleen to 14.1 cm. AORTA: No aneurysmal dilatation. IVC: Unremarkable. OTHER FINDINGS: None. IMPRESSION: Hepatomegaly is again seen with possible increase in hepatic steatosis. No discrete hepatic mass. Splenomegaly to 14.1 cm without focal mass evident. Partial imaging of the pancreas. Prior cholecystectomy. No demonstrated biliary tree dilatation grossly evident.
[2017-02-01] MEDS: Fluticasone-Salmeterol 500-50mcg Diskus INH SCH ×2 (12:00→13:39)
[2017-02-01] MEDS: (Novolin R) Insulin Human Regular 100 units/ml vial SC SCH ×3 (12:21→21:56)
--- NOTE | 2017-02-01 13:35 | CARD ---
APPROVED REPORT EKG Measurement Heart [id number] <Conclusion> Normal sinus rhythm Low voltage QRS Borderline ECG
--- NOTE | 2017-02-01 18:15 | CP.PCM.CON ---
History of Present Illness - History of Present Illness History of Present Illness: Reason for consultation: Shortness of breath 51 year old female with history of asthma, diabetes, seizure disorder present. Emergency room with worsening shortness of breath cough and wheezing. Patient states shortness of breath started on Monday morning and progressively got worse and was not relieved using nebulizer several times. Shortness of breath was also associated with cough, wheezing and chest tightness. Multiple admissions in the past for asthma exacerbation but never been intubated. Patient states she has been compliant using medicines. Patient also complained of nocturnal snorting, choking sensation and feeling very tired and sleepy during the daytime. PMHx: Asthma, DM, Seizure disorder SurgHx: Cholecystectomy (20+ years ago) FamHx: "everyone in the family has had strokes"; "cancer runs in the family" ( unknown type) SocHx: denies tobacco and drug use; social alcohol use; lives with two children in house; unemployed-disabled Allergies: NKDA Medications: Ventolin Inhaler, Dulera inhaler, Nebulizer, Insulin 18units AM&PM , Dilantin 100mg AM&PM Review of Systems - Review of Systems All systems: reviewed and no additional remarkable complaints except (Shortness of breath, cough and wheezing with chest tightness) Past Patient History - Infectious Disease Hx of Infectious Diseases: None - Past Medical History & Family History Past Medical History?: Yes - Past Social History Smoking Status: Never Smoked - CARDIAC Other/Comment: OR - PULMONARY Hx Respiratory Disorders: Yes Hx Asthma: Yes - NEUROLOGICAL Hx Neurological Disorder: Yes Hx Seizures: Yes - HEENT Hx HEENT Problems: No - RENAL Hx Chronic Kidney Disease: No - ENDOCRINE/METABOLIC Hx Endocrine Disorders: Yes Hx Diabetes Mellitus Type 2: Yes - HEMATOLOGICAL/ONCOLOGICAL Hx Blood Disorders: No - INTEGUMENTARY Hx Dermatological Problems: No - MUSCULOSKELETAL/RHEUMATOLOGICAL Hx Musculoskeletal Disorders: No Hx Falls: No - GASTROINTESTINAL Hx Gastrointestinal Disorders: No - GENITOURINARY/GYNECOLOGICAL Hx Genitourinary Disorders: No - PSYCHIATRIC Hx Psychophysiologic Disorder: No Hx Substance Use: No - SURGICAL HISTORY Hx Surgeries: Yes Hx Cholecystectomy: Yes - ANESTHESIA Hx Anesthesia: Yes Hx Anesthesia Reactions: No Hx Malignant Hyperthermia: No Meds Allergies/Adverse Reactions: Allergies Allergy/AdvReac Type Severity Reaction Status Date / Time No Known Allergies Allergy Verified 01/02/17 12:44 - Medications Medications: Current Medications Acetaminophen (Tylenol 325mg Tab) 650 mg PO Q6 PRN PRN Reason: Headache Last Admin: 02/01/17 16:49 Dose: 650 mg Albuterol/Ipratropium (Duoneb 3 Mg/0.5 Mg (3 Ml) Ud) 3 ml INH RQ6 PRN PRN Reason: Shortness of Breath Last Admin: 02/01/17 07:57 Dose: 3 ml Famotidine (Pepcid) 20 mg PO BID [facility] Last Admin: 02/01/17 17:45 Dose: 20 mg Heparin Sodium (Porcine) (Heparin) 5,000 units SC Q12 [facility] Last Admin: 02/01/17 09:04 Dose: 5,000 units Insulin Human Isoph/Insulin Regular (Novolin 70/30 (70/30 Units/Ml) 10 Ml) 18 units SC BIDCC [facility] Last Admin: 02/01/17 17:51 Dose: 18 units Insulin Human Regular (Novolin R) 0 unit SC ACHS [facility] PRN Reason: Protocol Last Admin: 02/01/17 17:50 Dose: 6 unit Methylprednisolone (Solu-Medrol) 40 mg IVP Q6H [facility] Last Admin: 02/01/17 15:53 Dose: 40 mg Montelukast Sodium (Singulair) 10 mg PO HS [facility] Phenytoin Sodium (Dilantin) 100 mg PO BID [facility] Last Admin: 02/01/17 17:45 Dose: 100 mg Fluticasone/Salmeterol (Advair Diskus 500/50) 1 puff INH RQ12 [facility] Last Admin: 02/01/17 13:39 Dose: 1 puff Physical Exam - Constitutional Appears: No Acute Distress - Head Exam Head Exam: ATRAUMATIC, NORMOCEPHALIC - ENT Exam ENT Exam: Mucous Membranes Moist - Neck Exam Neck exam: Positive for: Normal Inspection - Respiratory Exam Respiratory Exam: Clear to Auscultation Bilateral - Cardiovascular Exam Cardiovascular Exam: REGULAR RHYTHM - GI/Abdominal Exam GI & Abdominal Exam: Normal Bowel Sounds, Soft - Extremities Exam Extremities exam: Positive for: normal inspection - Neurological Exam Neurological exam: Alert, Oriented x3 Results - Vital Signs Recent Vital Signs: Last Vital Signs Temp 98.2 F 02/01/17 15:00 Pulse 87 02/01/17 15:00 Resp 20 02/01/17 15:00 BP 147/74 02/01/17 15:00 Pulse Ox 97 02/01/17 15:00 - Labs Result Diagrams: 01/31/17 23:39 01/31/17 23:39 Labs: Laboratory Results - last 24 hr 01/31/17 01/31/17 02/01/17 23:39 23:39 00:05 WBC 10.8 RBC 4.54 Hgb 11.3 Hct 34.7 MCV 76.4 L MCH 24.9 L MCHC 32.7 L RDW 16.1 H Plt Count 298 MPV 8.7 Neut % (Auto) 53.5 Lymph % (Auto) 37.7 [place] % (Auto) 5.1 Eos % (Auto) 3.1 Baso % (Auto) 0.6 Neut # 5.8 Lymph # 4.1 [place] # 0.5 Eos # 0.3 Baso # 0.1 pO2 56 H VBG pH 7.41 VBG pCO2 47 VBG HCO3 28.1 VBG Total CO2 31.2 H VBG O2 Sat (Calc) 94.0 H VBG Base Excess 4.3 H VBG Potassium 3.9 Glucose 148 H Lactate 1.4 Blood Gas Comments Po2 56 and glu 148 critical Crit Value Called To Jhonny gardiner rn Crit Value Called By Mendel love Crit Value Read Back N Blood Gas Notified Time 16 Sodium 138 140.0 Potassium 3.9 Chloride 102 107.0 Carbon Dioxide 24 Anion Gap 15 BUN 5 L Creatinine 0.7 Est GFR ( Amer) > 60 Est GFR (Non-Af Amer) > 60 POC Glucose (mg/dL) Random Glucose 104 Hemoglobin A1c Calcium 8.9 Total Bilirubin 0.6 AST 18 ALT 27 Alkaline Phosphatase 83 Total Protein 8.3 Albumin 4.0 Globulin 4.3 H Albumin/Globulin Ratio 0.9 L Venous Blood Potassium 3.9 Urine Color Urine Clarity Urine pH Ur Specific [place] Urine Protein Urine Glucose (UA) Urine Ketones Urine Blood Urine Nitrate Urine Bilirubin Urine Urobilinogen Ur Leukocyte Esterase Urine WBC (Auto) Urine RBC (Auto) Ur Squamous Epith Cells 02/01/17 02/01/17 02/01/17 07:07 07:23 07:30 WBC RBC Hgb Hct MCV MCH MCHC RDW Plt Count MPV Neut % (Auto) Lymph % (Auto) [place] % (Auto) Eos % (Auto) Baso % (Auto) Neut # Lymph # [place] # Eos # Baso # pO2 VBG pH VBG pCO2 VBG HCO3 VBG Total CO2 VBG O2 Sat (Calc) VBG Base Excess VBG Potassium Glucose Lactate Blood Gas Comments Crit Value Called To Crit Value Called By Crit Value Read Back Blood Gas Notified Time Sodium Potassium Chloride Carbon Dioxide Anion Gap BUN Creatinine Est GFR ( Amer) Est GFR (Non-Af Amer) POC Glucose (mg/dL) 328 H Random Glucose Hemoglobin A1c 6.9 H Calcium Total Bilirubin AST ALT Alkaline Phosphatase Total Protein Albumin Globulin Albumin/Globulin Ratio Venous Blood Potassium Urine Color Yellow Urine Clarity Clear Urine pH 7.0 Ur Specific [place] 1.014 Urine Protein Negative Urine Glucose (UA) 3+ H Urine Ketones Negative Urine Blood 1+ H Urine Nitrate Negative Urine Bilirubin Negative Urine Urobilinogen Normal Ur Leukocyte Esterase Neg Urine WBC (Auto) 1 Urine RBC (Auto) 2 Ur Squamous Epith Cells 3 02/01/17 02/01/17 11:24 17:07 WBC RBC Hgb Hct MCV MCH MCHC RDW Plt Count MPV Neut % (Auto) Lymph % (Auto) [place] % (Auto) Eos % (Auto) Baso % (Auto) Neut # Lymph # [place] # Eos # Baso # pO2 VBG pH VBG pCO2 VBG HCO3 VBG Total CO2 VBG O2 Sat (Calc) VBG Base Excess VBG Potassium Glucose Lactate Blood Gas Comments Crit Value Called To Crit Value Called By Crit Value Read Back Blood Gas Notified Time Sodium Potassium Chloride Carbon Dioxide Anion Gap BUN Creatinine Est GFR ( Amer) Est GFR (Non-Af Amer) POC Glucose (mg/dL) 300 H 280 H Random Glucose Hemoglobin A1c Calcium Total Bilirubin AST ALT Alkaline Phosphatase Total Protein Albumin Globulin Albumin/Globulin Ratio Venous Blood Potassium Urine Color Urine Clarity Urine pH Ur Specific [place] Urine Protein Urine Glucose (UA) Urine Ketones Urine Blood Urine Nitrate Urine Bilirubin Urine Urobilinogen Ur Leukocyte Esterase Urine WBC (Auto) Urine RBC (Auto) Ur Squamous Epith Cells Assessment & Plan (1) Exacerbation of asthma Assessment and Plan: Continue nebulizer treatment, IV steroids Peak flow every shift Patient states she had allergy tests done recently Pulmonary function test Status: Acute (2) CHI (obstructive sleep apnea) Status: Acute Comment: Complaining of excessive sleepiness during the daytime and nocturnal snoring at night. Consider sleep study as outpatient
[2017-02-02] MEDS: MethylPREDNISolone 40 mg Vial IVP SCH ×2 (03:55→10:28)
--- NOTE | 2017-02-02 07:24 | CP.PCM.PN ---
Subjective - Date & Time of Evaluation Date of Evaluation: 02/02/17 Time of Evaluation: 07:00 - Subjective Subjective: Medicine Note for Dr. Hartman Patient was seen and examined at bedside. Denied fever, chills, headache, chest pain, abdominal pain, n/v/d/c, or urinary symptoms. Objective - Vital Signs/Intake and Output Vital Signs (last 24 hours): Temp Pulse Resp BP Pulse Ox 98.1 F 90 20 128/82 98 02/02/17 00:00 02/02/17 00:00 02/02/17 00:00 02/02/17 00:00 02/02/17 00:00 Intake and Output: 02/02/17 02/02/17 06:59 18:59 Intake Total 900 Balance 900 - Medications Medications: Current Medications Acetaminophen (Tylenol 325mg Tab) 650 mg PO Q6 PRN PRN Reason: Headache Last Admin: 02/02/17 01:58 Dose: 650 mg Albuterol/Ipratropium (Duoneb 3 Mg/0.5 Mg (3 Ml) Ud) 3 ml INH RQ6 PRN PRN Reason: Shortness of Breath Last Admin: 02/01/17 07:57 Dose: 3 ml Famotidine (Pepcid) 20 mg PO BID [facility] Last Admin: 02/01/17 17:45 Dose: 20 mg Heparin Sodium (Porcine) (Heparin) 5,000 units SC Q12 [facility] Last Admin: 02/01/17 22:01 Dose: 5,000 units Insulin Human Isoph/Insulin Regular (Novolin 70/30 (70/30 Units/Ml) 10 Ml) 18 units SC BIDCC [facility] Last Admin: 02/01/17 17:51 Dose: 18 units Insulin Human Regular (Novolin R) 0 unit SC ACHS [facility] PRN Reason: Protocol Last Admin: 02/01/17 21:56 Dose: Not Given Methylprednisolone (Solu-Medrol) 40 mg IVP Q6H [facility] Last Admin: 02/02/17 03:55 Dose: 40 mg Montelukast Sodium (Singulair) 10 mg PO HS [facility] Last Admin: 02/01/17 22:01 Dose: 10 mg Phenytoin Sodium (Dilantin) 100 mg PO BID [facility] Last Admin: 02/01/17 17:45 Dose: 100 mg Fluticasone/Salmeterol (Advair Diskus 500/50) 1 puff INH RQ12 [facility] Last Admin: 02/01/17 13:39 Dose: 1 puff - Labs Labs: 01/31/17 23:39 01/31/17 23:39 - Additional Findings Additional findings: -Head Exam Head Exam: ATRAUMATIC, NORMAL INSPECTION - Eye Exam Eye Exam: EOMI, Normal appearance Pupil Exam: PERRL - ENT Exam ENT Exam: Mucous Membranes Moist - Respiratory Exam Respiratory Exam: Wheezes bilaterally at lower lung bases. absent: Clear to Auscultation Bilateral, Rales, Rhonchi Additional comments: on 2L nasal cannula - Cardiovascular Exam Cardiovascular Exam: REGULAR RHYTHM, +S1, +S2. absent: Bradycardia, Tachycardia - GI/Abdominal Exam GI & Abdominal Exam: Normal Bowel Sounds, Soft, Tenderness (RUQ & RLQ). absent : Distended, Firm, Guarding, Mass, Rebound - Extremities Exam Extremities exam: Positive for: pedal pulses present. Negative for: calf tenderness, pedal edema, tenderness - Back Exam Back exam: absent: CVA tenderness (L), CVA tenderness (R) - Neurological Exam Neurological exam: Alert, Oriented x3 - Psychiatric Exam Psychiatric exam: Normal Affect, Normal Mood - Skin Skin Exam: Dry, Intact, Normal Color, Warm Assessment and Plan - Assessment and Plan (Free Text) Plan: Asthma exacerbation CXR: No definite, interval acute cardiopulmonary disease appreciated. Technically limited study as discussed above. ABG: PO2: 56, PCO2 47, Pulmonology consulted- Dr. Blackmon - help appreciated - continue current regimen. Patient had an outpatient allergy test performed she is to follow up for the results. Patient was complaining of excessive sleepiness during the daytime and nocturnal snoring at night. Consider sleep study as outpatient. Started Duonebs 2ml INH Q6 prn Started Solumedrol 40mg IV Q6h Started on Singular and Advair BID O2 via nasal cannula PRN Abdominal pain Most likely 2/2 to excessive coughing Abdominal Ultrasound: Hepatomegaly increase in hepatic steatosis. Splenomegaly to 14.1cm without focal mass evident. Prior cholecystectomy. No demonstrated biliary tree dilatation grossly evident. Urinalysis: + 3 glucose, +1 blood Diabetes Accuchecks A1c- 6.9 Continue home medication- Insulin 18units BID, ISS- high Seizure Continue home medications- Dilantin 100mg PO BID Prophylactic measure GI PPX: Pepcid 20mg PO BID DVT PPX: SCDs, Heparin 5,000sc Q12h Carb Consistent Diet Activity as tolerated DW Dr. Hartman, Viry NORMAN, PGY-1
[2017-02-02] MEDS: Albuterol-Ipratrop 3 mg / 0.5 (3 ml) UD INH PRN ×2 (07:42→13:38)
[2017-02-02] MEDS: Fluticasone-Salmeterol 500-50mcg Diskus INH SCH (07:42)
[2017-02-02 07:54] LABS: BASO % 0.1 % (0.0-2.0); HEMATOCRIT 33.5 % (34.0-47.0); LYMPH # 1.5 K/uL (1.0-4.3); LYMPH % 10.3 % (20.0-40.0); MEAN CELL VOLUME 77.3 fL (81.0-99.0); MEAN CORPUSCULAR HEMOGLOBIN 24.8 pg (27.0-31.0); MEAN CORPUSCULAR HGB CONC 32.1 g/dL (33.0-37.0); MEAN PLATELET VOLUME 9.2 fL (7.2-11.7); MONO # 0.3 K/uL (0.0-0.8); RED CELL DISTRIBUTION WIDTH 16.8 % (11.5-14.5); WHITE BLOOD COUNT 14.6 K/uL (4.8-10.8)
[2017-02-02 08:18] LABS: CHLORIDE 100 mmol/L (98-107); POTASSIUM 4.5 mmol/L (3.6-5.2); SODIUM 135 mmol/L (132-148)
[2017-02-02 08:20] LABS: BILIRUBIN,TOTAL 0.5 mg/dL (0.2-1.3); CARBON DIOXIDE 25 mmol/L (22-30); GFR AFRICAN-AMERICAN > 60
[2017-02-02 08:21] LABS: ALKALINE PHOSPHATASE 81 U/L (38-126); ALT/SGPT 20 U/L (9-52); AST/SGOT 15 U/L (14-36); BLOOD UREA NITROGEN 9 mg/dL (7-17); GLUCOSE,RANDOM 291 mg/dL (65-105); MAGNESIUM 2.1 mg/dL (1.6-2.3); PHOSPHOROUS 2.3 mg/dL (2.5-4.5); TOTAL PROTEIN 7.7 g/dL (6.3-8.3)
[2017-02-02] MEDS: (Novolin 70/30) NPH/Regular 70/30 Units/ml 10 ml vial SC SCH (08:25)
[2017-02-02] MEDS: (Novolin R) Insulin Human Regular 100 units/ml vial SC SCH ×2 (08:25→12:30)
[2017-02-02 09:22] VITALS: BP 138/74; PULSE 79; TEMP 97.9; O2SAT 95
--- NOTE | 2017-02-02 10:31 | CP.PCM.DIS ---
<Jessica Baires - Last Filed: 02/02/17 10:46> Provider - Provider Date of Admission: 02/01/17 00:52 Attending physician: Cesar Vasquez MD Consults: Pulm: Dr. Blackmon Time Spent in preparation of Discharge (in minutes): 55 Hospital Course - Lab Results Lab Results: Most Recent Lab Values WBC 14.6 K/uL (4.8-10.8) H 02/02/17 07:43 RBC 4.33 Mil/uL (3.80-5.20) 02/02/17 07:43 Hgb 10.8 g/dL (11.0-16.0) L 02/02/17 07:43 Hct 33.5 % (34.0-47.0) L 02/02/17 07:43 MCV 77.3 fL (81.0-99.0) L 02/02/17 07:43 MCH 24.8 pg (27.0-31.0) L 02/02/17 07:43 MCHC 32.1 g/dL (33.0-37.0) L 02/02/17 07:43 RDW 16.8 % (11.5-14.5) H 02/02/17 07:43 Plt Count 282 K/uL (130-400) 02/02/17 07:43 MPV 9.2 fL (7.2-11.7) 02/02/17 07:43 Neut % (Auto) 87.6 % (50.0-75.0) H 02/02/17 07:43 Lymph % (Auto) 10.3 % (20.0-40.0) L 02/02/17 07:43 Rankin % (Auto) 2.0 % (0.0-10.0) 02/02/17 07:43 Eos % (Auto) 0.0 % (0.0-4.0) 02/02/17 07:43 Baso % (Auto) 0.1 % (0.0-2.0) 02/02/17 07:43 Neut # 12.8 K/uL (1.8-7.0) H 02/02/17 07:43 Lymph # 1.5 K/uL (1.0-4.3) 02/02/17 07:43 Rankin # 0.3 K/uL (0.0-0.8) 02/02/17 07:43 Eos # 0.0 K/uL (0.0-0.7) 02/02/17 07:43 Baso # 0.0 K/uL (0.0-0.2) 02/02/17 07:43 pO2 56 mm/Hg (30-55) H 02/01/17 00:05 VBG pH 7.41 (7.32-7.43) 02/01/17 00:05 VBG pCO2 47 mmHg (40-60) 02/01/17 00:05 VBG HCO3 28.1 mmol/L 02/01/17 00:05 VBG Total CO2 31.2 mmol/L (22-28) H 02/01/17 00:05 VBG O2 Sat (Calc) 94.0 % (40-65) H 02/01/17 00:05 VBG Base Excess 4.3 mmol/L (0.0-2.0) H 02/01/17 00:05 VBG Potassium 3.9 mmol/L (3.6-5.2) 02/01/17 00:05 Sodium 140.0 mmol/l (132-148) 02/01/17 00:05 Chloride 107.0 mmol/L (98-107) 02/01/17 00:05 Glucose 148 mg/dl (65-105) H 02/01/17 00:05 Lactate 1.4 mmol/L (0.7-2.1) 18 00:05 Blood Gas Comments Po2 56 and glu 148 critical 02/01/17 00:05 Crit Value Called To Jhonny gardiner rn 02/01/17 00:05 Crit Value Called By Mendel love 02/01/17 00:05 Crit Value Read Back N 02/01/17 00:05 Blood Gas Notified Time 16 02/01/17 00:05 Sodium 135 mmol/L (132-148) 02/02/17 07:43 Potassium 4.5 mmol/L (3.6-5.2) 02/02/17 07:43 Chloride 100 mmol/L (98-107) 02/02/17 07:43 Carbon Dioxide 25 mmol/L (22-30) 02/02/17 07:43 Anion Gap 15 (10-20) 02/02/17 07:43 BUN 9 mg/dL (7-17) 02/02/17 07:43 Creatinine 0.7 mg/dL (0.7-1.2) 02/02/17 07:43 Est GFR ( Amer) > 60 02/02/17 07:43 Est GFR (Non-Af Amer) > 60 02/02/17 07:43 POC Glucose (mg/dL) 258 mg/dL (65-110) H 02/02/17 07:22 Random Glucose 291 mg/dL (65-105) H 02/02/17 07:43 Hemoglobin A1c 6.9 % (4.2-6.5) H 02/01/17 07:07 Calcium 9.0 mg/dl (8.6-10.4) 02/02/17 07:43 Phosphorus 2.3 mg/dL (2.5-4.5) L 02/02/17 07:43 Magnesium 2.1 mg/dL (1.6-2.3) 02/02/17 07:43 Total Bilirubin 0.5 mg/dL (0.2-1.3) 02/02/17 07:43 AST 15 U/L (14-36) 02/02/17 07:43 ALT 20 U/L (9-52) 02/02/17 07:43 Alkaline Phosphatase 81 U/L (38-126) 02/02/17 07:43 Total Protein 7.7 g/dL (6.3-8.3) 02/02/17 07:43 Albumin 3.9 g/dL (3.5-5.0) 02/02/17 07:43 Globulin 3.8 gm/dL (2.2-3.9) 02/02/17 07:43 Albumin/Globulin Ratio 1.0 (1.0-2.1) 02/02/17 07:43 Venous Blood Potassium 3.9 mmol/L (3.6-5.2) 02/01/17 00:05 Urine Color Yellow (YELLOW) 02/01/17 07:23 Urine Clarity Clear (Clear) 02/01/17 07:23 Urine pH 7.0 (5.0-8.0) 02/01/17 07:23 Ur Specific [place] 1.014 (1.003-1.030) 02/01/17 07:23 Urine Protein Negative mg/dL (NEGATIVE) 02/01/17 07:23 Urine Glucose (UA) 3+ mg/dL (Normal) H 02/01/17 07:23 Urine Ketones Negative mg/dL (NEGATIVE) 02/01/17 07:23 Urine Blood 1+ (NEGATIVE) H 02/01/17 07:23 Urine Nitrate Negative (NEGATIVE) 02/01/17 07:23 Urine Bilirubin Negative (NEGATIVE) 02/01/17 07:23 Urine Urobilinogen Normal mg/dL (0.2-1.0) 02/01/17 07:23 Ur Leukocyte Esterase Neg Brie/uL (Negative) 02/01/17 07:23 Urine WBC (Auto) 1 /hpf (0-5) 02/01/17 07:23 Urine RBC (Auto) 2 /hpf (0-3) 02/01/17 07:23 Ur Squamous Epith Cells 3 /hpf (0-5) 02/01/17 07:23 - Hospital Course Hospital Course: Upon Admission: Patient is a 51 years old female with a past medical history of asthma, DM, and seizures, who presents to the ED with shortness of breath, cough, and wheezing. Patient reports her symptoms started Monday morning when she was cleaning her room. She says she uses Ventolin and Dulera 2-3 times daily and a nebulizer about once per day. She states she used her inhalers when her symptoms worsened on Monday, but they only minimally helped. She also reports she has chest tightness, a fast heart beat, and feels tired. She says her symptoms are better when she lays down. Patient states that she started to have RUQ and RLQ pain 1- 2 hours prior to coming to the hospital. She describes the pain as sharp, intermittent and radiates to the center of her back. Patient admits to having increased urinary frequency and mild pain with urination that started today. Patient currently denies having chest pain, fevers, weakness, dizziness, sore throat, nausea, vomiting, hematuria, diarrhea, constipation, and hemoptysis PMD: Dr. Sonya Wallace PMHx: Asthma, DM, Seizure disorder SurgHx: Cholecystectomy (20+ years ago) FamHx: "everyone in the family has had strokes"; "cancer runs in the family" ( unknown type) SocHx: denies tobacco and drug use; social alcohol use; lives with two children in house; unemployed-disabled Allergies: NKDA Medications: Ventolin Inhaler, Dulera inhaler, Nebulizer, Insulin 18units AM&PM , Dilantin 100mg AM&PM Throughout Hospital Course: Patient was admitted for asthma exacerbation. She will be discharged home with steroid taper and a referral to follow up with a photogrammetric surveyor. Asthma exacerbation CXR: No definite, interval acute cardiopulmonary disease appreciated. Technically limited study as discussed above. ABG: PO2: 56, PCO2 47, Pulmonology consulted- Dr. Blackmon - help appreciated Started Duonebs 2ml INH Q6 prn Started Solumedrol 40mg IV Q6h Started on Singular and Advair BID O2 via nasal cannula PRN Abdominal pain Most likely 2/2 to excessive coughing Abdominal Ultrasound: f/u results Urinalysis: + 3 glucose, +1 blood Diabetes Accuchecks Continue home medication- Insulin 18units BID, ISS- high A1c- 6.9 Seizure Continue home medications- Dilantin 100mg PO BID Prophylactic measure GI PPX: Pepcid 20mg PO BID DVT PPX: SCDs, Heparin 5,000sc Q12h Carb Consistent Diet Activity as tolerated This is a brief summary of the patient's hospital course. Please review EMR for full report. Discharge Exam - Additional Findings Additional findings: - Head Exam Head Exam: ATRAUMATIC, NORMAL INSPECTION - Eye Exam Eye Exam: EOMI, Normal appearance Pupil Exam: PERRL - ENT Exam ENT Exam: Mucous Membranes Moist - Respiratory Exam Respiratory Exam: Clear to Auscultation Bilateral, NO Rales, NO Rhonchi, NO WHEEZING Additional comments: on 2L nasal cannula - Cardiovascular Exam Cardiovascular Exam: REGULAR RHYTHM, +S1, +S2. absent: Bradycardia, Tachycardia - GI/Abdominal Exam GI & Abdominal Exam: Normal Bowel Sounds, Soft, Tenderness (RUQ & RLQ). absent : Distended, Firm, Guarding, Mass, Rebound - Extremities Exam Extremities exam: Positive for: pedal pulses present. Negative for: calf tenderness, pedal edema, tenderness - Back Exam Back exam: absent: CVA tenderness (L), CVA tenderness (R) - Neurological Exam Neurological exam: Alert, Oriented x3 - Psychiatric Exam Psychiatric exam: Normal Affect, Normal Mood - Skin Skin Exam: Dry, Intact, Normal Color, Warm Discharge Plan - Discharge Medications Prescriptions: Albuterol HFA [Ventolin HFA 90 mcg/actuation (8 g)] 1 puff IH Q4H PRN #1 inhaler PRN Reason: Shortness Of Breath Fluticasone/Salmeterol 500/50 [Advair Diskus 500/50] 1 puff INH RQ12 #1 dsk Insulin Human (NPH)/Regular [Novolin 70/30 (70/30 units/ml) 10 ml] 18 units SC BID 30 Days unit Montelukast [Singulair] 10 mg PO HS #30 tab Pen Needle, Diabetic [Insulin Pen Needle] 1 each MC BID #60 dis.needle Phenytoin, Extended [Dilantin] 100 mg PO BID #60 cer predniSONE [Prednisone] 10 mg PO TID #9 tab predniSONE [predniSONE Tab] 10 mg PO DAILY #3 tab predniSONE [predniSONE Tab] 20 mg PO BID #6 tab predniSONE [predniSONE Tab] 20 mg PO DAILY #3 tab - Follow Up Plan Condition: STABLE Disposition: HOME/ ROUTINE Instructions: Albuterol (By breathing), Prednisone (By mouth), Phenytoin (By mouth), Montelukast (By mouth), Fluticasone/Salmeterol (By breathing), Insulin NPH/Regular (By injection), Asthma (DC) Additional Instructions: Patient is to continue a steroid taper, 20mg by mouth twice a day for 3 days, then 10mg by mouth 3 times a day, 20mg by mouth daily x 3 days, then 10mg by mouth daily x 3 days. You are to start taking Singular 10mg by mouth night and Advair 500/50 TWICE A DAY. Continue the medications as listed on the paper handed to your during discharge. Please follow up with a photogrammetric surveyor Dr. Blackmon within 1-2 weeks for better management of your asthma and to get a prescription for a sleep study. Please follow up with your primary care physician within 1-2 weeks. Referrals: Suman Blackmon MD [Staff Provider] - [facility] [Outside] [facility] [Outside] <Shlomo Hartman - Last Filed: 02/02/17 14:13> Provider - Provider Date of Admission: 02/01/17 00:52 Attending physician: Cesar Vasquez MD Hospital Course - Lab Results Lab Results: Most Recent Lab Values WBC 14.6 K/uL (4.8-10.8) H 02/02/17 07:43 RBC 4.33 Mil/uL (3.80-5.20) 02/02/17 07:43 Hgb 10.8 g/dL (11.0-16.0) L 02/02/17 07:43 Hct 33.5 % (34.0-47.0) L 02/02/17 07:43 MCV 77.3 fL (81.0-99.0) L 02/02/17 07:43 MCH 24.8 pg (27.0-31.0) L 02/02/17 07:43 MCHC 32.1 g/dL (33.0-37.0) L 02/02/17 07:43 RDW 16.8 % (11.5-14.5) H 02/02/17 07:43 Plt Count 282 K/uL (130-400) 02/02/17 07:43 MPV 9.2 fL (7.2-11.7) 02/02/17 07:43 Neut % (Auto) 87.6 % (50.0-75.0) H 02/02/17 07:43 Lymph % (Auto) 10.3 % (20.0-40.0) L 02/02/17 07:43 Rankin % (Auto) 2.0 % (0.0-10.0) 02/02/17 07:43 Eos % (Auto) 0.0 % (0.0-4.0) 02/02/17 07:43 Baso % (Auto) 0.1 % (0.0-2.0) 02/02/17 07:43 Neut # 12.8 K/uL (1.8-7.0) H 02/02/17 07:43 Lymph # 1.5 K/uL (1.0-4.3) 02/02/17 07:43 Rankin # 0.3 K/uL (0.0-0.8) 02/02/17 07:43 Eos # 0.0 K/uL (0.0-0.7) 02/02/17 07:43 Baso # 0.0 K/uL (0.0-0.2) 02/02/17 07:43 pO2 56 mm/Hg (30-55) H 02/01/17 00:05 VBG pH 7.41 (7.32-7.43) 02/01/17 00:05 VBG pCO2 47 mmHg (40-60) 02/01/17 00:05 VBG HCO3 28.1 mmol/L 02/01/17 00:05 VBG Total CO2 31.2 mmol/L (22-28) H 02/01/17 00:05 VBG O2 Sat (Calc) 94.0 % (40-65) H 02/01/17 00:05 VBG Base Excess 4.3 mmol/L (0.0-2.0) H 02/01/17 00:05 VBG Potassium 3.9 mmol/L (3.6-5.2) 02/01/17 00:05 Sodium 140.0 mmol/l (132-148) 02/01/17 00:05 Chloride 107.0 mmol/L (98-107) 02/01/17 00:05 Glucose 148 mg/dl (65-105) H 02/01/17 00:05 Lactate 1.4 mmol/L (0.7-2.1) 02/01/17 00:05 Blood Gas Comments Po2 56 and glu 148 critical 02/01/17 00:05 Crit Value Called To Jhonny gardiner rn 02/01/17 00:05 Crit Value Called By Mendel love 02/01/17 00:05 Crit Value Read Back N 02/01/17 00:05 Blood Gas Notified Time 16 02/01/17 00:05 Sodium 135 mmol/L (132-148) 02/02/17 07:43 Potassium 4.5 mmol/L (3.6-5.2) 02/02/17 07:43 Chloride 100 mmol/L (98-107) 02/02/17 07:43 Carbon Dioxide 25 mmol/L (22-30) 02/02/17 07:43 Anion Gap 15 (10-20) 02/02/17 07:43 BUN 9 mg/dL (7-17) 02/02/17 07:43 Creatinine 0.7 mg/dL (0.7-1.2) 02/02/17 07:43 Est GFR ( Amer) > 60 02/02/17 07:43 Est GFR (Non-Af Amer) > 60 02/02/17 07:43 POC Glucose (mg/dL) 310 mg/dL (65-110) H 02/02/17 11:16 Random Glucose 291 mg/dL (65-105) H 02/02/17 07:43 Hemoglobin A1c 6.9 % (4.2-6.5) H 02/01/17 07:07 Calcium 9.0 mg/dl (8.6-10.4) 02/02/17 07:43 Phosphorus 2.3 mg/dL (2.5-4.5) L 02/02/17 07:43 Magnesium 2.1 mg/dL (1.6-2.3) 02/02/17 07:43 Total Bilirubin 0.5 mg/dL (0.2-1.3) 02/02/17 07:43 AST 15 U/L (14-36) 02/02/17 07:43 ALT 20 U/L (9-52) 02/02/17 07:43 Alkaline Phosphatase 81 U/L (38-126) 02/02/17 07:43 Total Protein 7.7 g/dL (6.3-8.3) 02/02/17 07:43 Albumin 3.9 g/dL (3.5-5.0) 02/02/17 07:43 Globulin 3.8 gm/dL (2.2-3.9) 02/02/17 07:43 Albumin/Globulin Ratio 1.0 (1.0-2.1) 02/02/17 07:43 Venous Blood Potassium 3.9 mmol/L (3.6-5.2) 02/01/17 00:05 Urine Color Yellow (YELLOW) 02/01/17 07:23 Urine Clarity Clear (Clear) 02/01/17 07:23 Urine pH 7.0 (5.0-8.0) 02/01/17 07:23 Ur Specific [place] 1.014 (1.003-1.030) 02/01/17 07:23 Urine Protein Negative mg/dL (NEGATIVE) 02/01/17 07:23 Urine Glucose (UA) 3+ mg/dL (Normal) H 02/01/17 07:23 Urine Ketones Negative mg/dL (NEGATIVE) 02/01/17 07:23 Urine Blood 1+ (NEGATIVE) H 02/01/17 07:23 Urine Nitrate Negative (NEGATIVE) 02/01/17 07:23 Urine Bilirubin Negative (NEGATIVE) 02/01/17 07:23 Urine Urobilinogen Normal mg/dL (0.2-1.0) 02/01/17 07:23 Ur Leukocyte Esterase Neg Brie/uL (Negative) 02/01/17 07:23 Urine WBC (Auto) 1 /hpf (0-5) 02/01/17 07:23 Urine RBC (Auto) 2 /hpf (0-3) 02/01/17 07:23 Ur Squamous Epith Cells 3 /hpf (0-5) 02/01/17 07:23 Attending/Attestation - Attestation I have personally seen and examined this patient.: Yes I have fully participated in the care of the patient.: Yes I have reviewed all pertinent clinical information, including history, physical exam and plan: Yes Notes (Text): 02/02/17 14:13 Medical attending: Patient was seen and examined by me, agree with the above note by medical billing service. The patient was reporting that she is feeling much better and that she felt ready to go home. I explained to her that this was fine however we would be writing her for a long -acting inhaled steroid-dependent, Pulmicort as well as a tapering dose of prednisone, and also Singulair tablets to be taken once a day Furthermore we suggested that the patient try to avoid any potential animals that she has in her house for understand she has a cat and I spoke to her about this and she is more insisted on keeping this The patient should follow-up with pulmonology for potential obstructive sleep apnea study. We also had a very short discussion with the patient with regards to her weight. I explained to her that she would benefit quite a bit if she was able to lose some weight the patient explains that she understands try to do her best Thank you very much, Shlomo Hartman
== END 2017-02-02 14:53 | disposition home or self-care (01) | DRG 96 ==
LOC: C.ER 23:30 → C.9E 02-01 00:52 → C.3T 02-01 01:20
PROVIDERS: ADMIT Family Medicine; ATTEND Family Medicine
DX: J45.901 Unspecified asthma with (acute) exacerbation (principal); E11.65 Type 2 diabetes mellitus with hyperglycemia; G47.33 Obstructive sleep apnea (adult) (pediatric); G40.909 Epilepsy, unspecified, not intractable, without status epilepticus; Z79.4 Long term (current) use of insulin; Z82.3 Family history of stroke; Z90.49 Acquired absence of other specified parts of digestive tract; R10.31 Right lower quadrant pain

== ENCOUNTER 2017-05-02 21:06 | Emergency (ER) | payer MEDICAID ==
[2017-05-02 21:06] VITALS: BMI 56.7
[2017-05-02 22:06] VITALS: BP 158/83; PULSE 98; RESP 20; TEMP 98.5; O2SAT 98
[2017-05-02 23:22] LABS: SQUAMOUS EPITHIAL 13 /hpf (0-5); URINE BACTERIA RARE (<OCC); URINE BILIRUBIN NEGATIVE (NEGATIVE); URINE BLOOD 1+ (NEGATIVE); URINE CALCIUM OXALATE CRYSTALS FEW /hpf (<OCC); URINE CLARITY Hazy (Clear); URINE COLOR Amber (YELLOW); URINE GLUCOSE (UA) NORMAL (Normal); URINE LEUKOCYTE ESTERASE NEG Leu/uL (Negative); URINE NITRATE NEGATIVE (NEGATIVE); URINE PROTEIN 1+ mg/dL (NEGATIVE)
--- NOTE | 2017-05-02 23:37 | C.PDOC ---
History Of Present Illness 51 year old female presents to the ED for evaluation of a possible . Patient states her LMP was 12/30/16. Patient states her breasts are sore and her stomach appears larger and suspects she may be . Otherwise, she denies abdominal pain, nausea, vomiting. Time Seen by Provider: 05/02/17 22:09 Chief Complaint (Nursing): Female Genitourinary History Per: Patient History/Exam Limitations: no limitations Onset/Duration Of Symptoms: Days Current Symptoms Are (Timing): Still Present Quality Of Discomfort: denies: "Pain" Associated Symptoms: denies: Nausea, Vomiting Additional History Per: Patient Abnormal Vaginal Bleeding: No Past Medical History Reviewed: Historical Data, Nursing Documentation, Vital Signs Vital Signs: Last Vital Signs Temp 98.5 F 05/02/17 22:02 Pulse 98 H 05/02/17 22:02 Resp 20 05/02/17 22:02 BP 158/83 H 05/02/17 22:02 Pulse Ox 98 05/03/17 05:29 - Medical History PMH: Asthma, Diabetes (IDDM), Seizures Denies: Chronic Kidney Disease Surgical History: Cholecystectomy Family History: States: Unknown Family Hx - Social History Hx Tobacco Use: No Hx Alcohol Use: Yes (occasionaly) Hx Substance Use: No - Immunization History Hx Tetanus Toxoid Vaccination: Yes Hx Influenza Vaccination: Yes Hx Pneumococcal Vaccination: Yes Review Of Systems Gastrointestinal: Negative for: Nausea, Vomiting, Abdominal Pain Physical Exam - Physical Exam Appears: Non-toxic, No Acute Distress, Other (morbidly obese ) Skin: Normal Color, Warm, Dry Oral Mucosa: Moist Neck: Supple Chest: Symmetrical, No Deformity, No Tenderness Cardiovascular: Rhythm Regular, No Murmur Respiratory: Normal Breath Sounds Gastrointestinal/Abdominal: Soft, No Tenderness, No Guarding, No Rebound, Other (obese) Extremity: Normal ROM, Capillary Refill (less than 2 seconds ) Neurological/Psych: Oriented x3, Normal Speech, Normal Cognition ED Course And Treatment O2 Sat by Pulse Oximetry: 98 (on RA) Pulse Ox Interpretation: Normal Progress Note: UA ordered and reviewed. Pt's UCG results are negative. Lab results were discussed with patient. On reassessment, patient is resting comfortably and is showing no signs of distress. Patient is stable for discharge and is advised to follow up with SHIRRING MACHINE OPERATOR within 1-2 days for further evaluation. Disposition Counseled Patient/Family Regarding: Diagnosis, Need For Followup - Disposition Referrals: [facility] [Outside] [facility] [Outside] Disposition: HOME/ ROUTINE Disposition Time: 23:36 Condition: STABLE Additional Instructions: Please follwo up with SHIRRING MACHINE OPERATOR doctor Take tylenol or advil for pain Return to ER if worse Forms: [facility] ([place]), General Discharge Instructions - Clinical Impression Clinical Impression: Encounter for medical assessment - PA / CIRCUIT JUDGE / Resident Statement MD/DO has reviewed & agrees with the documentation as recorded. - Scribe Statement The provider has reviewed the documentation as recorded by the Scribe (Juliane Veronica) All medical record entries made by the Scribe were at my direction and personally dictated by me. I have reviewed the chart and agree that the record accurately reflects my personal performance of the history, physical exam, medical decision making, and the department course for this patient. I have also personally directed, reviewed, and agree with the discharge instructions and disposition.
== END 2017-05-02 23:42 | disposition home or self-care (01) ==
LOC: C.ER 21:06
DX: Z76.89 Persons encountering health services in other specified circumstances (principal); E11.9 Type 2 diabetes mellitus without complications; Z79.4 Long term (current) use of insulin

== ENCOUNTER 2017-05-26 15:56 | Emergency (ER) | payer MEDICAID ==
[2017-05-26 15:57] VITALS: BMI 56.7
[2017-05-26 16:45] VITALS: BP 143/85; PULSE 78; RESP 16; TEMP 98; O2SAT 99
--- NOTE | 2017-05-26 18:36 | C.PDOC ---
History Of Present Illness 51 y/o female for evaluation of generalized body aches and nonproductive cough which began yesterday. Patient states she received the flu shot this year and denies any sick contacts. Patient denies fever, chills, nausea, vomiting, chest pain, shortness of breath, or changes to eating habits. Chief Complaint (Nursing): Flu-like Symptoms History Per: Patient History/Exam Limitations: no limitations Onset/Duration Of Symptoms: Hrs Current Symptoms Are (Timing): Still Present Location Of Pain: Diffuse Myalgias Associated Symptoms: Cough. denies: Sputum, Nausea, Vomiting Additional History Per: Patient Past Medical History Reviewed: Historical Data, Nursing Documentation, Vital Signs Vital Signs: Last Vital Signs Temp 98.0 F 05/26/17 16:39 Pulse 78 05/26/17 16:39 Resp 16 05/26/17 16:39 BP 143/85 05/26/17 16:39 Pulse Ox 99 05/26/17 23:19 - Medical History PMH: Asthma, Diabetes (IDDM), Seizures Denies: Chronic Kidney Disease Surgical History: Cholecystectomy Family History: States: Unknown Family Hx - Social History Hx Tobacco Use: No Hx Alcohol Use: Yes (occasionaly) Hx Substance Use: No - Immunization History Hx Tetanus Toxoid Vaccination: Yes Hx Influenza Vaccination: Yes Hx Pneumococcal Vaccination: Yes Review Of Systems Constitutional: Negative for: Fever, Chills Cardiovascular: Negative for: Chest Pain Respiratory: Positive for: Cough. Negative for: Sputum Gastrointestinal: Negative for: Nausea, Vomiting Musculoskeletal: Positive for: Other (generalized body aches ) Physical Exam - Physical Exam Appears: Non-toxic, No Acute Distress Skin: Normal Color, Warm, Dry Head: Atraumatic, Normacephalic Eye(s): bilateral: Normal Inspection Ear(s): Bilateral: Normal Nose: Normal, No Discharge Oral Mucosa: Moist Throat: Normal, No Erythema, No Exudate Neck: Supple Chest: Symmetrical, No Deformity, No Tenderness Cardiovascular: Rhythm Regular, No Murmur Respiratory: Normal Breath Sounds, No Rales, No Rhonchi, No Wheezing Extremity: Normal ROM, Capillary Refill (less than 2 seconds) Neurological/Psych: Oriented x3, Normal Speech, Normal Cognition ED Course And Treatment O2 Sat by Pulse Oximetry: 99 (on RA ) Pulse Ox Interpretation: Normal Disposition - [facility] - Disposition: HOME/ ROUTINE Disposition Time: 17:45 Condition: GOOD Additional Instructions: Thank you for letting us take care of you today. The emergency medical care you received today was directed at your acute symptoms. If you were prescribed any medication, please fill it and take as directed. It may take several days for your symptoms to resolve. Return to the Emergency Department if your symptoms worsen, do not improve, or if you have any other problems. Please contact your doctor or call one of the physicians/clinics you have been referred to that are listed on the Patient Visit Information form that is included in your discharge packet. Bring any paperwork you were given at discharge with you along with any medications you are taking to your follow up visit. Our treatment cannot replace ongoing medical care by a primary care provider (PCP) outside of the emergency department. Thank you for allowing the [facility] team to be part of your care today. Follow up with your doctor in 3-4 days for re-evaluation and further management. Prescriptions: Ibuprofen [Motrin] 600 mg PO Q6 PRN #20 tab PRN Reason: Pain, Moderate (4-7) Loperamide [Loperamide HCl] 2 mg PO Q2 PRN #15 cap PRN Reason: Diarrhea Oseltamivir Phosphate [Tamiflu] 75 mg PO BID #10 capsule Instructions: Dehydration (ED), Viral Syndrome (ED) Forms: [employer] ([place]) - Clinical Impression Clinical Impression: Influenza - Scribe Statement The provider has reviewed the documentation as recorded by the Scribe (Juliane Veronica) Provider Attestation: All medical record entries made by the Scribe were at my direction and personally dictated by me. I have reviewed the chart and agree that the record accurately reflects my personal performance of the history, physical exam, medical decision making, and the department course for this patient. I have also personally directed, reviewed, and agree with the discharge instructions and disposition.
== END 2017-05-26 17:57 | disposition home or self-care (01) ==
LOC: C.ER 15:56
DX: J11.1 Influenza due to unidentified influenza virus with other respiratory manifestations (principal); E11.9 Type 2 diabetes mellitus without complications; Z79.4 Long term (current) use of insulin

== ENCOUNTER 2017-08-21 16:16 | Emergency (ER) | payer MEDICAID ==
[2017-08-21 16:16] VITALS: BMI 56.7
[2017-08-21 17:09] VITALS: O2SAT 100
--- NOTE | 2017-08-21 20:47 | C.PDOC ---
History Of Present Illness 51 y/o female presents to ED with c/o right thigh pain secondary to doing "a split" while mopping wet floor. Patient denies falling, loc, head injury, nausea , vomiting, numbness or any other complaints at this time. Time Seen by Provider: 08/21/17 18:10 Chief Complaint (Nursing): Lower Extremity Problem/Injury History Per: Patient History/Exam Limitations: no limitations Onset/Duration Of Symptoms: Hrs Current Symptoms Are (Timing): Still Present Past Medical History Reviewed: Historical Data, Nursing Documentation, Vital Signs Vital Signs: Last Vital Signs Temp 97.7 F 08/21/17 20:48 Pulse 82 08/21/17 20:48 Resp 18 08/21/17 20:48 BP 141/90 08/21/17 20:48 Pulse Ox 100 08/21/17 21:11 - Medical History PMH: Asthma, Diabetes (IDDM), Seizures Surgical History: Cholecystectomy Family History: States: No Known Family Hx - Social History Hx Tobacco Use: No Hx Alcohol Use: Yes (occasionaly) Hx Substance Use: No - Immunization History Hx Tetanus Toxoid Vaccination: Yes Hx Influenza Vaccination: Yes Hx Pneumococcal Vaccination: Yes Review Of Systems Constitutional: Negative for: Fever, Chills Gastrointestinal: Negative for: Nausea, Vomiting Musculoskeletal: Positive for: Leg Pain Skin: Negative for: Rash, Bruising Neurological: Negative for: Weakness, Numbness Physical Exam - Physical Exam Appears: Non-toxic, No Acute Distress, Other (Morbidly obese) Skin: Warm, Dry, No Rash Head: Atraumatic, Normacephalic Eye(s): bilateral: Normal Inspection Oral Mucosa: Moist Neck: Normal ROM, Supple Extremity: Tenderness (to lateral right thigh and femur ), Capillary Refill (<2 seconds), No Deformity, No Swelling, Other (Painful ROM at right knee) Pulses: Right Femoral: Normal Neurological/Psych: Oriented x3, Normal Speech, Normal Cognition, Normal Motor, Normal Sensation ED Course And Treatment O2 Sat by Pulse Oximetry: 100 (RA) Pulse Ox Interpretation: Normal Medical Decision Making Medical Decision Making: pt with thigh pain s/p slip and almost did a split; tender to right thigh,, neg xray. thign wrapped with dante bandage and pt given walker for assistance with ambulation. able to ambulate, d/c home. Disposition Counseled Patient/Family Regarding: Studies Performed, Diagnosis, Need For Followup, Rx Given - Disposition Referrals: Forrest Wallace [Staff Provider] - Analia Aviles MD [Staff Provider] - Disposition: HOME/ ROUTINE Disposition Time: 20:47 Condition: GOOD Additional Instructions: Please use walker for assistance. Take Tylenol for pain. FOllow up with Dr Wallace and Dr Tellez (orthopedics) if pain persists. Prescriptions: Acetaminophen [Tylenol 325mg tab] 650 mg PO Q4 #50 tab Forms: [employer] (Tajik), General Discharge Instructions - Clinical Impression Clinical Impression: Injury of right leg - PA / HUMAN RESOURCES FILE CLERK / Resident Statement MD/DO has reviewed & agrees with the documentation as recorded. - Scribe Statement The provider has reviewed the documentation as recorded by the Scribnico Cespedes All medical record entries made by the Lorriibnico were at my direction and personally dictated by me. I have reviewed the chart and agree that the record accurately reflects my personal performance of the history, physical exam, medical decision making, and the department course for this patient. I have also personally directed, reviewed, and agree with the discharge instructions and disposition.
[2017-08-21 20:50] VITALS: BP 141/90; PULSE 82; RESP 18; TEMP 97.7
--- NOTE | 2017-08-22 08:39 | RAD ---
PROCEDURE: Right Femur Radiographs. HISTORY: right thigh pain COMPARISON: None. TECHNIQUE: AP and Lateral Radiographs of the right femur. FINDINGS: FEMUR: No fracture identified. No dislocation seen. There are superior and inferior patellar enthesophytes. SOFT TISSUES: Unremarkable OTHER FINDINGS: None. IMPRESSION: No fracture or dislocation identified.
== END 2017-08-21 20:52 | disposition home or self-care (01) ==
LOC: C.ER 16:16
DX: S89.91XA Unspecified injury of right lower leg, initial encounter (principal); Y93.E5 Activity, floor mopping and cleaning; E11.9 Type 2 diabetes mellitus without complications; Z79.4 Long term (current) use of insulin

== ENCOUNTER 2018-02-20 19:51 | Emergency (ER) | payer MEDICAID ==
[2018-02-20 19:51] VITALS: BMI 56.7
--- NOTE | 2018-02-20 20:11 | C.PDOC ---
History Of Present Illness 52 year old female morbidly obese presents to the ED c/o chest pain, urinary frequency, and diarrhea that started today. Patient was given baby aspirin by medics and took her own nitro SL, states she feels better now. Patient able to speak in complete sentences. Patient denies fever, chills, nausea, vomit, dyauria, hematuria, rash, weakness, numbness, CP, SOB. Time Seen by Provider: 02/20/18 20:11 Chief Complaint (Nursing): Chest Pain History Per: Patient, EMS History/Exam Limitations: no limitations Onset/Duration Of Symptoms: Hrs Current Symptoms Are (Timing): Still Present Context: Other Severity: Moderate Pain Scale Rating Of: 4 Quality: Dull, Tightness, Pressure Associated Symptoms: Dyspnea Modifying Factors: None Alleviating Factors: None Recent travel outside of the [place]: No Additional History Per: Patient Past Medical History Reviewed: Historical Data, Nursing Documentation, Vital Signs - Medical History PMH: Asthma, Diabetes (IDDM), Seizures Denies: Chronic Kidney Disease Surgical History: Cholecystectomy Family History: States: Unknown Family Hx - Social History Hx Tobacco Use: No Hx Alcohol Use: Yes (occasionaly) Hx Substance Use: No - Immunization History Hx Tetanus Toxoid Vaccination: Yes Hx Influenza Vaccination: Yes Hx Pneumococcal Vaccination: Yes Review Of Systems Constitutional: Negative for: Fever, Chills ENT: Negative for: Throat Pain Cardiovascular: Positive for: Chest Pain Respiratory: Negative for: Shortness of Breath Gastrointestinal: Positive for: Diarrhea. Negative for: Nausea, Vomiting, Abdominal Pain Genitourinary: Positive for: Frequency. Negative for: Dysuria, Hematuria Musculoskeletal: Negative for: Back Pain Skin: Negative for: Rash Neurological: Negative for: Weakness, Numbness Psych: Negative for: Anxiety Physical Exam - Physical Exam Appears: Non-toxic, No Acute Distress, Other (morbidly obese) Skin: Warm, Dry Head: Normacephalic Eye(s): bilateral: Normal Inspection Oral Mucosa: Moist Neck: Supple Chest: Symmetrical Cardiovascular: Rhythm Regular Respiratory: No Rales, No Rhonchi, No Wheezing Gastrointestinal/Abdominal: Soft, No Tenderness, No Guarding, No Rebound, Other (morbidly obese) Back: Normal Inspection Extremity: Pedal Edema (trace bilateral), No Calf Tenderness Extremity: Bilateral: Atraumatic, Normal Color And Temperature, Normal ROM Pulses: Left Dorsalis Pedis: Normal, Right Dorsalis Pedis: Normal Neurological/Psych: Oriented x3, Normal Speech, Normal Cognition Gait: Steady ED Course And Treatment - Laboratory Results Result Diagrams: 02/20/18 20:33 02/20/18 20:33 ECG: Interpreted By Me, Viewed By Me ECG Rhythm: Sinus Rhythm (70), Nonspecific Changes O2 Sat by Pulse Oximetry: 99 Pulse Ox Interpretation: Normal - Radiology CXR: Interpreted by Me, Viewed By Me CXR Interpretation: No: Infiltrates, Fracture, Pnemothorax Progress Note: Plan: - EKG. - Labs. - CXR. - aspirin 325 mg PO. - UA Disposition Discussed With Dr.: Cesar Vasquez Comment: accepted the pt on his service and took over the care at 9:39PM Doctor Will See Patient In The: ED Counseled Patient/Family Regarding: Studies Performed, Diagnosis - Disposition Disposition: HOSPITALIZED Disposition Time: 20:11 Condition: FAIR Forms: [facility] (Greek) - POA Present On Arrival: Poor Glycemic Control - Clinical Impression Clinical Impression: Chest pain, Hyperglycemia - Scribe Statement The provider has reviewed the documentation as recorded by the Scribe Black Rouse All medical record entries made by the Scribe were at my direction and personally dictated by me. I have reviewed the chart and agree that the record accurately reflects my personal performance of the history, physical exam, medical decision making, and the department course for this patient. I have also personally directed, reviewed, and agree with the discharge instructions and disposition. Decision To Admit - Pt Status Changed To: Hospital Disposition Of: Inpatient - Admit Certification Admit to Inpatient:: After my assessment, the patient will require hospitali zation for at least two midnights. This is because of the severity of symptoms shown, intensity of services needed, and/or the medical risk in this patient being treated as an outpatient. - InPatient: Physician Admission Certification: I certify that this patient requires 2 or more midnights of care for the following reason:: After my assessment, the patient will require hospitalization for at least two midnights. This is because of the severity of symptoms shown, intensity of services needed, and/or the medical risk in this patient being treated as an outpatient. - . Bed Request Type: Telemetry Admitting Physician: Cesar Vasquez Patient Diagnosis: Chest pain, Hyperglycemia
[2018-02-20] MEDS ORDERED: Aspirin 325 mg EC Tablets PO STA (20:12)
[2018-02-20 20:36] LABS: BASO # 0.1 K/uL (0.0-0.2); BASO % 0.5 % (0.0-2.0); EOS # 0.1 K/uL (0.0-0.7); EOS % 0.4 % (0.0-4.0); HEMOGLOBIN 11.3 g/dL (11.0-16.0); LYMPH % 30.5 % (20.0-40.0); MEAN CELL VOLUME 76.2 fL (81.0-99.0); MEAN CORPUSCULAR HEMOGLOBIN 24.7 pg (27.0-31.0); MEAN CORPUSCULAR HGB CONC 32.5 g/dL (33.0-37.0); MEAN PLATELET VOLUME 9.1 fL (7.2-11.7); MONO # 0.8 K/uL (0.0-0.8); MONO % 5.1 % (0.0-10.0); NEUT # 10.3 K/uL (1.8-7.0); NEUT % 63.5 % (50.0-75.0); RBC 4.58 Mil/uL (3.80-5.20); RED CELL DISTRIBUTION WIDTH 17.4 % (11.5-14.5); WHITE BLOOD COUNT 16.3 K/uL (4.8-10.8)
[2018-02-20 20:45] LABS: INR 1.1; PROTHROMBIN TIME 11.5 SECONDS (9.7-12.2)
[2018-02-20 20:47] LABS: SQUAMOUS EPITHIAL 12 /hpf (0-5); URINE BACTERIA RARE (<OCC); URINE BILIRUBIN NEGATIVE (NEGATIVE); URINE BLOOD 1+ (NEGATIVE); URINE CALCIUM OXALATE CRYSTALS MANY /hpf (<OCC); URINE CLARITY Hazy (Clear); URINE COLOR Yellow (YELLOW); URINE GLUCOSE (UA) 1+ mg/dL (Normal); URINE LEUKOCYTE ESTERASE NEG Leu/uL (Negative); URINE PROTEIN 1+ mg/dL (NEGATIVE); URINE UROBILINOGEN NORMAL mg/dL (0.2-1.0)
[2018-02-20 20:49] LABS: ALB/GLOB RATIO 1.2 (1.0-2.1); ALBUMIN 3.9 g/dL (3.5-5.0); ALT/SGPT 16 U/L (9-52); AST/SGOT 9 U/L (14-36); BLOOD UREA NITROGEN 14 mg/dL (7-17); CALCIUM 8.4 mg/dl (8.6-10.4); GFR NON-AFRICAN AMERICAN > 60
[2018-02-20] MEDS ORDERED: Aspirin 325 mg EC Tablets PO ONE (20:59)
[2018-02-20 22:36] VITALS: BP 103/69; PULSE 73; RESP 18; TEMP 98.3; O2SAT 97
--- NOTE | 2018-02-21 09:57 | RAD ---
Date of service: 02/20/2018 HISTORY: chest pain COMPARISON: Portable chest 02/01/2017. FINDINGS: LUNGS: No active pulmonary disease. PLEURA: No significant pleural effusion identified, no pneumothorax apparent. CARDIOVASCULAR: No aortic atherosclerotic calcification present. Mildly prominent cardiac silhouette, possibly a function of technical magnification given frontal technique. No pulmonary vascular congestion. OSSEOUS STRUCTURES: No significant abnormalities. VISUALIZED UPPER ABDOMEN: Normal. OTHER FINDINGS: None. IMPRESSION: No interval acute cardiopulmonary disease appreciable.
--- NOTE | 2018-02-21 19:44 | CARD ---
APPROVED REPORT Date of service: 02/20/2018 EKG Measurement Heart [id number] <Conclusion> Normal sinus rhythm Normal ECG
== END 2018-02-20 22:46 | disposition left against medical advice (07) ==
LOC: C.ER 19:51 → UNDOADMIN 21:38 → C.9E 21:38 → C.ER 22:46
DX: E11.65 Type 2 diabetes mellitus with hyperglycemia (principal); Z79.4 Long term (current) use of insulin; R07.9 Chest pain, unspecified; E66.01 Morbid (severe) obesity due to excess calories; Z68.43 Body mass index [BMI] 50.0-59.9, adult

== ENCOUNTER 2018-03-01 12:12 | Inpatient (IN) | payer MEDICAID ==
[2018-03-01 12:13] VITALS: BMI 56.7
[2018-03-01 13:03] LABS: BASO # 0.1 K/uL (0.0-0.2); BASO % 0.8 % (0.0-2.0); EOS # 0.2 K/uL (0.0-0.7); EOS % 2.5 % (0.0-4.0); HEMOGLOBIN 11.5 g/dL (11.0-16.0); LYMPH # 3.2 K/uL (1.0-4.3); LYMPH % 34.7 % (20.0-40.0); MEAN CELL VOLUME 76.9 fL (81.0-99.0); MEAN CORPUSCULAR HEMOGLOBIN 25.2 pg (27.0-31.0); MEAN CORPUSCULAR HGB CONC 32.7 g/dL (33.0-37.0); MEAN PLATELET VOLUME 10.3 fL (7.2-11.7); MONO # 0.4 K/uL (0.0-0.8); MONO % 4.7 % (0.0-10.0); NEUT # 5.3 K/uL (1.8-7.0); NEUT % 57.3 % (50.0-75.0); NRBC % 0.1 % (0.0-2.0); RBC 4.58 Mil/uL (3.80-5.20); RED CELL DISTRIBUTION WIDTH 17.1 % (11.5-14.5); WHITE BLOOD COUNT 9.2 K/uL (4.8-10.8)
[2018-03-01] MEDS ORDERED: Aspirin 325 mg EC Tablets PO STA (13:07)
--- NOTE | 2018-03-01 13:10 | C.PDOC ---
History Of Present Illness 52 year old male, whose past medical history includes asthma, diabetes, DVT, and seizure disorder, presents to the ED for evaluation of chest pain which began around 30 minutes prior to arrival. Patient states she was asleep when the pain woke her up. Patient states the pain is to the center of her chest, reports shortness of breath, and denies radiation of pain. Patient was evaluated in this ED one week ago, was going to be admitted when she signed out against medical advice. Patient denies fever, chills, nausea, vomiting, recent travel. Patient states her last menstrual period was in November 2017, notes that her periods have started becoming irregular. Time Seen by Provider: 03/01/18 12:27 Chief Complaint (Nursing): Chest Pain History Per: Patient History/Exam Limitations: no limitations Onset/Duration Of Symptoms: Mins (30) Current Symptoms Are (Timing): Still Present Quality: "Pain" Associated Symptoms: denies: Nausea Recent travel outside of the [place]: No Additional History Per: Patient Past Medical History Reviewed: Historical Data, Nursing Documentation, Vital Signs Vital Signs: Last Vital Signs Temp 98 F 03/01/18 12:26 Pulse 110 H 03/01/18 12:57 Resp 14 03/01/18 12:57 BP 116/54 L 03/01/18 12:57 Pulse Ox 97 03/01/18 12:57 - Medical History PMH: Asthma, Diabetes (IDDM), Seizures Denies: Chronic Kidney Disease Surgical History: Cholecystectomy Family History: States: Unknown Family Hx - Social History Hx Tobacco Use: No Hx Alcohol Use: Yes (occasionaly) Hx Substance Use: No - Immunization History Hx Tetanus Toxoid Vaccination: Yes Hx Influenza Vaccination: Yes Hx Pneumococcal Vaccination: Yes Review Of Systems Constitutional: Negative for: Fever, Chills Cardiovascular: Positive for: Chest Pain Respiratory: Positive for: Shortness of Breath Physical Exam - Physical Exam Appears: Non-toxic, No Acute Distress, Other (morbidly obese ) Skin: Normal Color, Warm, Dry Head: Atraumatic, Normacephalic Eye(s): bilateral: Normal Inspection Oral Mucosa: Moist Neck: Supple Chest: Symmetrical, No Deformity, No Tenderness Cardiovascular: No Murmur, Other (irregularly irregular, tachycardia, normal s1/s2) Respiratory: Wheezing (mild, inspiratory and expiratory ), Other (good air entry ) Gastrointestinal/Abdominal: Soft, No Tenderness, No Guarding, No Rebound Extremity: Normal ROM, Capillary Refill (less than 2 seconds ), No Swelling Neurological/Psych: Oriented x3, Normal Speech, Normal Cognition ED Course And Treatment - Laboratory Results Result Diagrams: 03/01/18 12:56 03/01/18 12:56 O2 Sat by Pulse Oximetry: 97 (on RA) Pulse Ox Interpretation: Normal - Other Rad CXR X-Ray: Viewed By Me, Read By Radiologist Interpretation: Date of service: 03/01/2018. HISTORY: chest pain. COMPARISON: No prior. FINDINGS: LUNGS: Poor inspiration with low lung volumes, crowded bronchovascular markings and mild bibasilar atelectasis. The central pulmonary vasculature is slightly increased however this is likely due to AP positioning and poor inspiration. PLEURA: No significant pleural effusion identified, no pneumothorax apparent. CARDIOVASCULAR: Areolar minor aortic atherosclerotic calcification present. Heart is enlarged. No pulmonary vascular congestion. OSSEOUS STRUCTURES: No significant abnormalities. V ISUALIZED UPPER ABDOMEN: Normal. OTHER FINDINGS: None. IMPRESSION: Poor inspiration with low lung volumes, crowded bronchovascular markings and mild bibasilar atelectasis. The central pulmonary vasculature is slightly increased however this is likely due to AP positioning and poor inspiration Medical Decision Making Medical Decision Making: Impression: 52 year old female with chest pain Plan: * bloodwork * urinalysis * CXR * reassess and disposition Progress: Bloodwork, urinalysis and CXR ordered and reviewed. Nursing staff attempted peripheral line, without success. Right EJ performed successfully after multiple attempts. Patient found to have tachycardic rate. Administered 25mg of Cardizem with improvement of heart rate. Patient reports her chest pain has improved after Cardizem administration. Patient's blood pressure noted to have dropped. Administered IV Fluids. Patient restarted on 5mg bolus Cardizem IVP. Case discussed with Dr. Martinez (ICU) who will evaluate the patient at bedside. Disposition - Disposition - Scribe Statement The provider has reviewed the documentation as recorded by the Scribe (Juliane Veronica) Provider Attestation: All medical record entries made by the Scribe were at my direction and personally dictated by me. I have reviewed the chart and agree that the record accurately reflects my personal performance of the history, physical exam, medical decision making, and the department course for this patient. I have also personally directed, reviewed, and agree with the discharge instructions and disposition.
[2018-03-01 13:13] LABS: INR 1.1; PROTHROMBIN TIME 11.7 SECONDS (9.7-12.2)
[2018-03-01] MEDS ORDERED: Aspirin 325 mg EC Tablets PO ONE (13:23)
--- NOTE | 2018-03-01 13:34 | RAD ---
Date of service: 03/01/2018 HISTORY: chest pain COMPARISON: No prior. FINDINGS: LUNGS: Poor inspiration with low lung volumes, crowded bronchovascular markings and mild bibasilar atelectasis. The central pulmonary vasculature is slightly increased however this is likely due to AP positioning and poor inspiration PLEURA: No significant pleural effusion identified, no pneumothorax apparent. CARDIOVASCULAR: Areolar minor aortic atherosclerotic calcification present. Heart is enlarged. No pulmonary vascular congestion. OSSEOUS STRUCTURES: No significant abnormalities. VISUALIZED UPPER ABDOMEN: Normal. OTHER FINDINGS: None. IMPRESSION: Poor inspiration with low lung volumes, crowded bronchovascular markings and mild bibasilar atelectasis. The central pulmonary vasculature is slightly increased however this is likely due to AP positioning and poor inspiration
[2018-03-01 13:57] LABS: ALBUMIN 3.9 g/dL (3.5-5.0); ALT/SGPT 25 U/L (9-52); AST/SGOT 37 U/L (14-36); BLOOD UREA NITROGEN 7 mg/dL (7-17); CALCIUM 8.7 mg/dl (8.6-10.4); GFR NON-AFRICAN AMERICAN > 60
[2018-03-01] MEDS ORDERED: Sodium Chloride 0.9% 1,000 ML IV ONE (14:10)
--- NOTE | 2018-03-01 16:12 | CP.PCM.CON ---
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 She was found to be in Afib RVR. Patient was seen last week for chest pain and given a prescription for SL nitroglycerin. Patient denies previous history of arrythmias. Patient is also complaining of R LE pain. She states she has not been able to walk for the past week. PMH: Recurrent b/l LE DVTs- denies h/o PEs, on Xarelto >1 year T2DM Obesity (BMI 56) Asthma Seizure disorder Cholecystectomy Meds: Xarelto 20 mg PO daily Spiriva daily Fluticasone-Salmeterol daily Dilantin 100 mg PO BID Prednisone 10 mg PO BID NPH insulin 18 units SC BID NG 0.4 mg SL PRN All: NKA FH: CVAs SH: 7 children On disability Drinks alcohol occasionally Denies tobacco and illicit drug use Review of Systems - Constitutional Constitutional: absent: Anorexia, Chills, Fever, Headache - EENT Eyes: absent: Change in Vision Ears: absent: Tinnitus Nose/Mouth/Throat: absent: Nasal Congestion - Cardiovascular Cardiovascular: Chest Pain, Chest Pain at Rest, Dyspnea, Pedal Edema. absent: Diaphoresis, Palpitations - Respiratory Respiratory: Dyspnea. absent: Cough - Gastrointestinal Gastrointestinal: absent: Abdominal Pain, Change in Bowel Habits, Constipation, Diarrhea, Nausea, Vomiting - Genitourinary Genitourinary: absent: Dysuria, Hematuria - Musculoskeletal Musculoskeletal: As Per HPI, Arthralgias, Back Pain - Integumentary Integumentary: absent: Lesions - Neurological Neurological: absent: Numbness, Paresthesias, Tingling - Psychiatric Psychiatric: absent: Anxiety, Depression - Endocrine Endocrine: absent: Fatigue, Palpitations - Hematologic/Lymphatic Hematologic: absent: Easy Bleeding, Easy Bruising, Lymphadenopathy Past Patient History - Infectious Disease Hx of Infectious Diseases: None - Past Medical History & Family History Past Medical History?: Yes - Past Social History Smoking Status: Never Smoked Chewing Tobacco Use: No Cigar Use: No Alcohol: Occasional Drugs: Denies Home Situation {Lives}: With Family - CARDIAC Hx Cardiac Disorders: No Other/Comment: MS - PULMONARY Hx Asthma: Yes - NEUROLOGICAL Hx Seizures: Yes - HEENT Hx HEENT Problems: No - RENAL Hx Chronic Kidney Disease: No - ENDOCRINE/METABOLIC Hx Endocrine Disorders: Yes Hx Diabetes Mellitus Type 1: Yes - HEMATOLOGICAL/ONCOLOGICAL Hx Blood Disorders: No - INTEGUMENTARY Hx Dermatological Problems: No - MUSCULOSKELETAL/RHEUMATOLOGICAL Hx Musculoskeletal Disorders: No - GASTROINTESTINAL Hx Gastrointestinal Disorders: No - GENITOURINARY/GYNECOLOGICAL Hx Genitourinary Disorders: No - PSYCHIATRIC Hx Substance Use: No - SURGICAL HISTORY Hx Cholecystectomy: Yes - ANESTHESIA Hx Anesthesia: Yes Hx Anesthesia Reactions: No Hx Malignant Hyperthermia: No Meds Allergies/Adverse Reactions: Allergies Allergy/AdvReac Type Severity Reaction Status Date / Time No Known Allergies Allergy Verified 02/20/18 20:08 - Medications Medications: Current Medications Diltiazem HCl 125 mg/ Sodium (Chloride) 125 mls @ 5 mls/hr IV .Q24H PRN; Protocol PRN Reason: TITRATE PER MD ORDER Diltiazem HCl 125 mg/ Sodium (Chloride) 125 mls @ 2.5 mls/hr IV .Q24H SIMIN; Protocol Physical Exam - Constitutional Appears: No Acute Distress - Head Exam Head Exam: ATRAUMATIC, NORMAL INSPECTION - Eye Exam Eye Exam: EOMI, Normal appearance, PERRL - ENT Exam ENT Exam: Mucous Membranes Moist - Respiratory Exam Respiratory Exam: Decreased Breath Sounds, NORMAL BREATHING PATTERN. absent: Accessory Muscle Use, Respiratory Distress - Cardiovascular Exam Cardiovascular Exam: Tachycardia, Irregular Rhythm. absent: JVD - GI/Abdominal Exam GI & Abdominal Exam: Normal Bowel Sounds, Soft. absent: Tenderness - Rectal Exam Rectal Exam: Deferred - Extremities Exam Extremities exam: Positive for: normal capillary refill, tenderness (RLE), pedal pulses present - Neurological Exam Neurological exam: Alert, CN II-XII Intact, Oriented x3 - Psychiatric Exam Psychiatric exam: Normal Affect, Normal Mood - Skin Skin Exam: Dry, Intact, Normal Color, Warm Results - Vital Signs Recent Vital Signs: Last Vital Signs Temp 98 F 03/01/18 12:26 Pulse 136 H 03/01/18 15:37 Resp 17 03/01/18 15:37 BP 107/89 03/01/18 15:37 Pulse Ox 97 03/01/18 16:01 - Labs Result Diagrams: 03/01/18 12:56 03/01/18 12:56 Labs: Laboratory Results - last 24 hr 03/01/18 03/01/18 03/01/18 12:56 12:56 12:56 WBC 9.2 RBC 4.58 Hgb 11.5 Hct 35.2 MCV 76.9 L MCH 25.2 L MCHC 32.7 L RDW 17.1 H Plt Count 272 MPV 10.3 Neut % (Auto) 57.3 Lymph % (Auto) 34.7 [place] % (Auto) 4.7 Eos % (Auto) 2.5 Baso % (Auto) 0.8 Neut # (Auto) 5.3 Lymph # (Auto) 3.2 [place] # (Auto) 0.4 Eos # (Auto) 0.2 Baso # (Auto) 0.1 PT 11.7 INR 1.1 APTT 38 H Sodium 134 Potassium 4.8 Chloride 97 L Carbon Dioxide 24 Anion Gap 19 BUN 7 Creatinine 0.7 Est GFR ( Amer) > 60 Est GFR (Non-Af Amer) > 60 Random Glucose 387 H Calcium 8.7 Total Bilirubin 1.3 AST 37 H D ALT 25 Alkaline Phosphatase 88 Total Creatine Kinase 62 CK-MB (Mass) 0.30 Troponin I < 0.0120 Total Protein 7.8 Albumin 3.9 Globulin 3.9 Albumin/Globulin Ratio 1.0 Urine HCG, Qual Phenytoin 03/01/18 03/01/18 13:38 15:24 WBC RBC Hgb Hct MCV MCH MCHC RDW Plt Count MPV Neut % (Auto) Lymph % (Auto) [place] % (Auto) Eos % (Auto) Baso % (Auto) Neut # (Auto) Lymph # (Auto) [place] # (Auto) Eos # (Auto) Baso # (Auto) PT INR APTT Sodium Potassium Chloride Carbon Dioxide Anion Gap BUN Creatinine Est GFR ( Amer) Est GFR (Non-Af Amer) Random Glucose Calcium Total Bilirubin AST ALT Alkaline Phosphatase Total Creatine Kinase CK-MB (Mass) Troponin I Total Protein Albumin Globulin Albumin/Globulin Ratio Urine HCG, Qual Negative Phenytoin < 3.0 L - EKG Data Rate: Tachycardia (Afib) - EKG Data Interpretation: Acute Arrhythmia Assessment & Plan - Assessment and Plan (Free Text) Assessment: Patient is a 52 yo female who presented with new onset Afib RVR. Given Cardizem IVP and started on Cardizem drip in ED. Cardiology consulted. Patient placed on therapeutic Lovenox. CTA chest pending to r/o PE. Plan: Neuro: Seizure disorder - Monitor mental status - Dilantin 100 mg PO BID - Phenytoin level < 3 patient states she only missed one dose yesterday CV: Afib RVR- new onset, patient on Xarelto at home for recurrent LE DVTs - Cardizem drip - CTA chest pending- r/o PE - Cardiology consulted ([facility]) Hypotension- resolve - Patient presented normotensive, became hypotensive to 70/40 after 25 mg Cardizem IV and drip, resolved after 1L NS bolus - Monitor vitals Pulm: Asthma - Maintain spO2>92%- supplemental O2 PRN - Duoneb Q4H PRN - Prednisone 20 mg PO BID (home dose) GI: - Heart healthy diet : - I's & O's - Replete electrolytes PRN Endo: T2DM - Maintain euglycemia - Hypoglycemia protocol - Accuchecks ACHS with ISS Heme: - Monitor H&H ID: - Afebrile - No leukocytosis PPx: VTE: SCDs, Lovenox 120 mg SC BID GI: PTX 40 mg IV daily Code status: full code Case discussed with attending, Dr. Martinez. PGY-1 Jena Randhawa D.O. <Derrick Martinez - Last Filed: 03/01/18 20:24> Meds - Medications Medications: Current Medications Albuterol/Ipratropium (Duoneb 3 Mg/0.5 Mg (3 Ml) Ud) 3 ml INH RQ4 PRN PRN Reason: Shortness of Breath Dextrose (Dextrose 50% Inj) 0 ml IV STAT PRN; Protocol PRN Reason: Hypoglycemia Protocol Dextrose (Glutose 15) 0 gm PO ONCE PRN; Protocol PRN Reason: Hypoglycemia Protocol Enoxaparin Sodium (Lovenox) 120 mg SC Q12 SIMIN Glucagon (Glucagen Diagnostic Kit) 0 mg IM STAT PRN; Protocol PRN Reason: Hypoglycemia Protocol Diltiazem HCl 125 mg/ Sodium (Chloride) 125 mls @ 2.5 mls/hr IV .Q24H SIMIN; Protocol Last Titration: 03/01/18 19:07 Dose: 5 mg/hr, 5 mls/hr Dextrose (Dextrose 5% In Water 1000 Ml) 1,000 mls @ 0 mls/hr IV .Q0M PRN; Protocol PRN Reason: Hypoglycemia Protocol Insulin Human Regular (Novolin R) 0 unit SC ACHS SIMIN; Protocol Phenytoin Sodium (Dilantin) 100 mg PO BID SIMIN Last Admin: 03/01/18 20:23 Dose: 100 mg Prednisone (Prednisone Tab) 20 mg PO BID [facility] Last Admin: 03/01/18 20:23 Dose: 20 mg Results - Vital Signs Recent Vital Signs: Last Vital Signs Temp 97.8 F 03/01/18 17:00 Pulse 143 H 03/01/18 19:00 Resp 18 03/01/18 19:00 BP 121/90 03/01/18 19:00 Pulse Ox 98 03/01/18 19:00 - Labs Result Diagrams: 03/01/18 12:56 03/01/18 12:56 Labs: Laboratory Results - last 24 hr 03/01/18 03/01/18 03/01/18 12:56 12:56 12:56 WBC 9.2 RBC 4.58 Hgb 11.5 Hct 35.2 MCV 76.9 L MCH 25.2 L MCHC 32.7 L RDW 17.1 H Plt Count 272 MPV 10.3 Neut % (Auto) 57.3 Lymph % (Auto) 34.7 [place] % (Auto) 4.7 Eos % (Auto) 2.5 Baso % (Auto) 0.8 Neut # (Auto) 5.3 Lymph # (Auto) 3.2 [place] # (Auto) 0.4 Eos # (Auto) 0.2 Baso # (Auto) 0.1 PT 11.7 INR 1.1 APTT 38 H Sodium 134 Potassium 4.8 Chloride 97 L Carbon Dioxide 24 Anion Gap 19 BUN 7 Creatinine 0.7 Est GFR ( Amer) > 60 Est GFR (Non-Af Amer) > 60 Random Glucose 387 H Calcium 8.7 Total Bilirubin 1.3 AST 37 H D ALT 25 Alkaline Phosphatase 88 Total Creatine Kinase 62 CK-MB (Mass) 0.30 Troponin I < 0.0120 Total Protein 7.8 Albumin 3.9 Globulin 3.9 Albumin/Globulin Ratio 1.0 Urine HCG, Qual Phenytoin 03/01/18 03/01/18 13:38 15:24 WBC RBC Hgb Hct MCV MCH MCHC RDW Plt Count MPV Neut % (Auto) Lymph % (Auto) [place] % (Auto) Eos % (Auto) Baso % (Auto) Neut # (Auto) Lymph # (Auto) [place] # (Auto) Eos # (Auto) Baso # (Auto) PT INR APTT Sodium Potassium Chloride Carbon Dioxide Anion Gap BUN Creatinine Est GFR ( Amer) Est GFR (Non-Af Amer) Random Glucose Calcium Total Bilirubin AST ALT Alkaline Phosphatase Total Creatine Kinase CK-MB (Mass) Troponin I Total Protein Albumin Globulin Albumin/Globulin Ratio Urine HCG, Qual Negative Phenytoin < 3.0 L Attending/Attestation - Attestation I have personally seen and examined this patient.: Yes I have fully participated in the care of the patient.: Yes I have reviewed all pertinent clinical information: Yes Notes (Text): 03/01/18 20:24 Today: February The Patient was seen and examined at the bedside, Medical records reviewed, and management issues were discussed and formulated with the house staff. I have reviewed all the relevant clinical, laboratory, hemodynamic, radiographic data and medications Events reviewed Pain issues, skin care, head of the bed elevation, glycemic control were ad dressed. Agree with above resident's assessment and treatment plans of care as transcribed in Dr. Randhawa's note.
--- NOTE | 2018-03-01 16:13 | CP.PCM.HP ---
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 She was found to be in Afib RVR. Patient was seen last week for chest pain and given a prescription for SL nitroglycerin. Patient denies previous history of arrythmias. Patient is also complaining of R LE pain. She states she has not been able to walk for the past week. PMH: Recurrent b/l LE DVTs- denies h/o PEs, on Xarelto >1 year T2DM Obesity (BMI 56) Asthma Seizure disorder Cholecystectomy Meds: Xarelto 20 mg PO daily Spiriva daily Fluticasone-Salmeterol daily Dilantin 100 mg PO BID Prednisone 10 mg PO BID NPH insulin 18 units SC BID NG 0.4 mg SL PRN All: NKA FH: CVAs SH: 7 children On disability Drinks alcohol occasionally Denies tobacco and illicit drug use Present on Admission - Present on Admission Any Indicators Present on Admission: Yes History of DVT/PE: Yes History of Uncontrolled Diabetes: Yes Urinary Catheter: No Decubitus Ulcer Present: No History Surgical Site Infection Following: None Review of Systems - Constitutional Constitutional: absent: Anorexia, Chills, Fever, Headache - EENT Eyes: absent: Change in Vision Ears: absent: Decreased Hearing Nose/Mouth/Throat: absent: Nasal Congestion - Cardiovascular Cardiovascular: Chest Pain, Chest Pain at Rest, Dyspnea, Pedal Edema. absent: Diaphoresis, Palpitations - Respiratory Respiratory: Dyspnea. absent: Wheezing - Gastrointestinal Gastrointestinal: absent: Abdominal Pain, Change in Bowel Habits, Constipation, Diarrhea, Nausea, Vomiting - Genitourinary Genitourinary: absent: Dysuria, Hematuria - Musculoskeletal Musculoskeletal: Arthralgias, Back Pain. absent: Numbness, Tingling - Integumentary Integumentary: absent: Lesions - Neurological Neurological: absent: Dizziness, Paresthesias - Psychiatric Psychiatric: absent: Anxiety, Depression - Endocrine Endocrine: absent: Fatigue, Palpitations - Hematologic/Lymphatic Hematologic: absent: Easy Bleeding, Easy Bruising, Lymphadenopathy Past Patient History - Infectious Disease Hx of Infectious Diseases: None - Tetanus Immunizations Tetanus Immunization: Unknown - Past Medical History & Family History Past Medical History?: Yes - Past Social History Smoking Status: Never Smoked Chewing Tobacco Use: No Cigar Use: No Alcohol: Occasional Drugs: Denies Home Situation {Lives}: With Family - CARDIAC Hx Cardiac Disorders: No Other/Comment: [place] - PULMONARY Hx Asthma: Yes - NEUROLOGICAL Hx Seizures: Yes - HEENT Hx HEENT Problems: No - RENAL Hx Chronic Kidney Disease: No - ENDOCRINE/METABOLIC Hx Endocrine Disorders: Yes Hx Diabetes Mellitus Type 1: Yes - HEMATOLOGICAL/ONCOLOGICAL Hx Blood Disorders: No - INTEGUMENTARY Hx Dermatological Problems: No - MUSCULOSKELETAL/RHEUMATOLOGICAL Hx Musculoskeletal Disorders: No - GASTROINTESTINAL Hx Gastrointestinal Disorders: No - GENITOURINARY/GYNECOLOGICAL Hx Genitourinary Disorders: No - PSYCHIATRIC Hx Substance Use: No - SURGICAL HISTORY Hx Cholecystectomy: Yes - ANESTHESIA Hx Anesthesia: Yes Hx Anesthesia Reactions: No Hx Malignant Hyperthermia: No Meds Allergies/Adverse Reactions: Allergies Allergy/AdvReac Type Severity Reaction Status Date / Time No Known Allergies Allergy Verified 02/20/18 20:08 Physical Exam - Constitutional Appears: Non-toxic, No Acute Distress - Head Exam Head Exam: ATRAUMATIC, NORMAL INSPECTION, NORMOCEPHALIC - Eye Exam Eye Exam: EOMI, Normal appearance, PERRL - ENT Exam ENT Exam: Mucous Membranes Moist - Neck Exam Neck exam: Positive for: Normal Inspection - Respiratory Exam Respiratory Exam: Decreased Breath Sounds, NORMAL BREATHING PATTERN. absent: Accessory Muscle Use, Wheezes, Respiratory Distress - Cardiovascular Exam Cardiovascular Exam: Tachycardia, Irregular Rhythm, +S1, +S2 - GI/Abdominal Exam GI & Abdominal Exam: Normal Bowel Sounds, Soft. absent: Tenderness - Rectal Exam Rectal Exam: Deferred - Extremities Exam Extremities exam: Positive for: normal capillary refill, pedal pulses present - Neurological Exam Neurological exam: Alert, CN II-XII Intact, Oriented x3 - Psychiatric Exam Psychiatric exam: Normal Affect, Normal Mood - Skin Skin Exam: Dry, Intact, Normal Color, Warm Results - Vital Signs Recent Vital Signs: Last Vital Signs Temp 98 F 03/01/18 12:26 Pulse 136 H 03/01/18 15:37 Resp 17 03/01/18 15:37 BP 107/89 03/01/18 15:37 Pulse Ox 97 03/01/18 16:01 - Labs Result Diagrams: 03/01/18 12:56 03/01/18 12:56 Labs: Laboratory Results - last 24 hr 03/01/18 03/01/18 03/01/18 12:56 12:56 12:56 WBC 9.2 RBC 4.58 Hgb 11.5 Hct 35.2 MCV 76.9 L MCH 25.2 L MCHC 32.7 L RDW 17.1 H Plt Count 272 MPV 10.3 Neut % (Auto) 57.3 Lymph % (Auto) 34.7 [place] % (Auto) 4.7 Eos % (Auto) 2.5 Baso % (Auto) 0.8 Neut # (Auto) 5.3 Lymph # (Auto) 3.2 [place] # (Auto) 0.4 Eos # (Auto) 0.2 Baso # (Auto) 0.1 PT 11.7 INR 1.1 APTT 38 H Sodium 134 Potassium 4.8 Chloride 97 L Carbon Dioxide 24 Anion Gap 19 BUN 7 Creatinine 0.7 Est GFR ( Amer) > 60 Est GFR (Non-Af Amer) > 60 Random Glucose 387 H Calcium 8.7 Total Bilirubin 1.3 AST 37 H D ALT 25 Alkaline Phosphatase 88 Total Creatine Kinase 62 CK-MB (Mass) 0.30 Troponin I < 0.0120 Total Protein 7.8 Albumin 3.9 Globulin 3.9 Albumin/Globulin Ratio 1.0 Urine HCG, Qual Phenytoin 03/01/18 03/01/18 13:38 15:24 WBC RBC Hgb Hct MCV MCH MCHC RDW Plt Count MPV Neut % (Auto) Lymph % (Auto) [place] % (Auto) Eos % (Auto) Baso % (Auto) Neut # (Auto) Lymph # (Auto) [place] # (Auto) Eos # (Auto) Baso # (Auto) PT INR APTT Sodium Potassium Chloride Carbon Dioxide Anion Gap BUN Creatinine Est GFR ( Amer) Est GFR (Non-Af Amer) Random Glucose Calcium Total Bilirubin AST ALT Alkaline Phosphatase Total Creatine Kinase CK-MB (Mass) Troponin I Total Protein Albumin Globulin Albumin/Globulin Ratio Urine HCG, Qual Negative Phenytoin < 3.0 L - EKG Data EKG Interpreted by: Myself Rate: Tachycardia - EKG Data Interpretation: Acute Arrhythmia (Afib) Assessment & Plan - Assessment and Plan (Free Text) Assessment: Patient is a 52 yo female who presented with new onset Afib RVR. Given Cardizem IVP and started on Cardizem drip in ED. Cardiology consulted. Patient placed on therapeutic Lovenox. CTA chest pending to r/o PE. Plan: Afib RVR- new onset, patient on Xarelto at home for recurrent LE DVTs - Cardizem drip - CTA chest pending- r/o PE - [facility] Hypotension- resolve - Patient presented normotensive, became hypotensive to 70/40 after 25 mg Cardizem IV and drip, resolved after 1L NS bolus - Monitor vitals Asthma - Maintain spO2>92%- supplemental O2 PRN - Duoneb Q4H PRN - Prednisone 20 mg PO BID (home dose) T2DM - Maintain euglycemia - Hypoglycemia protocol - Accuchecks ACHS with ISS Seizure disorder - Monitor mental status - Dilantin 100 mg PO BID - Phenytoin level < 3 patient states she only missed one dose yesterday PPx: VTE: SCDs, Lovenox 120 mg SC BID GI: PTX 40 mg IV daily Code status: full code Case discussed with attending, Dr. Hartman. PGY-1 Jena Randhawa D.O. <Shlomo Hartman H - Last Filed: 03/02/18 07:10> Results - Vital Signs Recent Vital Signs: Last Vital Signs Temp 97.8 F 03/02/18 00:00 Pulse 70 03/02/18 06:30 Resp 12 03/02/18 06:30 BP 104/57 L 03/02/18 05:55 Pulse Ox 99 03/02/18 06:30 - Labs Result Diagrams: 03/02/18 05:14 03/02/18 05:14 Labs: Laboratory Results - last 24 hr 03/01/18 03/01/18 03/01/18 12:56 12:56 12:56 WBC 9.2 RBC 4.58 Hgb 11.5 Hct 35.2 MCV 76.9 L MCH 25.2 L MCHC 32.7 L RDW 17.1 H Plt Count 272 MPV 10.3 Neut % (Auto) 57.3 Lymph % (Auto) 34.7 [place] % (Auto) 4.7 Eos % (Auto) 2.5 Baso % (Auto) 0.8 Neut # (Auto) 5.3 Lymph # (Auto) 3.2 [place] # (Auto) 0.4 Eos # (Auto) 0.2 Baso # (Auto) 0.1 PT 11.7 INR 1.1 APTT 38 H Sodium 134 Potassium 4.8 Chloride 97 L Carbon Dioxide 24 Anion Gap 19 BUN 7 Creatinine 0.7 Est GFR ( Amer) > 60 Est GFR (Non-Af Amer) > 60 Random Glucose 387 H Calcium 8.7 Phosphorus Magnesium Total Bilirubin 1.3 AST 37 H D ALT 25 Alkaline Phosphatase 88 Total Creatine Kinase 62 CK-MB (Mass) 0.30 Troponin I < 0.0120 Total Protein 7.8 Albumin 3.9 Globulin 3.9 Albumin/Globulin Ratio 1.0 Urine HCG, Qual Phenytoin 03/01/18 03/01/18 03/02/18 13:38 15:24 05:14 WBC 11.4 H RBC 4.52 Hgb 11.2 Hct 34.8 MCV 77.1 L MCH 24.7 L MCHC 32.0 L RDW 16.9 H Plt Count 256 MPV 9.5 Neut % (Auto) 86.2 H Lymph % (Auto) 11.5 L [place] % (Auto) 1.4 Eos % (Auto) 0.2 Baso % (Auto) 0.7 Neut # (Auto) 9.8 H Lymph # (Auto) 1.3 [place] # (Auto) 0.2 Eos # (Auto) 0.0 Baso # (Auto) 0.1 PT INR APTT Sodium Potassium Chloride Carbon Dioxide Anion Gap BUN Creatinine Est GFR ( Amer) Est GFR (Non-Af Amer) Random Glucose Calcium Phosphorus Magnesium Total Bilirubin AST ALT Alkaline Phosphatase Total Creatine Kinase CK-MB (Mass) Troponin I Total Protein Albumin Globulin Albumin/Globulin Ratio Urine HCG, Qual Negative Phenytoin < 3.0 L 03/02/18 03/02/18 05:14 05:14 WBC RBC Hgb Hct MCV MCH MCHC RDW Plt Count MPV Neut % (Auto) Lymph % (Auto) [place] % (Auto) Eos % (Auto) Baso % (Auto) Neut # (Auto) Lymph # (Auto) [place] # (Auto) Eos # (Auto) Baso # (Auto) PT 12.3 H INR 1.1 APTT 48 H D Sodium 133 Potassium 4.5 Chloride 96 L Carbon Dioxide 25 Anion Gap 16 BUN 8 Creatinine 0.7 Est GFR ( Amer) > 60 Est GFR (Non-Af Amer) > 60 Random Glucose 403 H* Calcium 8.8 Phosphorus 2.6 Magnesium 1.9 Total Bilirubin 0.7 AST 25 ALT 33 Alkaline Phosphatase 100 Total Creatine Kinase CK-MB (Mass) Troponin I Total Protein 7.2 Albumin 3.7 Globulin 3.5 Albumin/Globulin Ratio 1.0 Urine HCG, Qual Phenytoin Attending/Attestation - Attestation I have personally seen and examined this patient.: Yes I have fully participated in the care of the patient.: Yes I have reviewed all pertinent clinical information: Yes Notes (Text): Medical attending: Patient was seen and examined by me. Agree with the above note by the resident The patient was not in acute distress when I saw her. She had already been moved to the ICU when I saw her and on a cardizem ggt In the ER the patient was found to be in rapid atrial fib with RVR and was given a large amount cardizem IVP and subsquently had lower BP. Patient explains she does have a history of DVT and so considering there is no history of atrial fibrillation previously she says, then will try to check a CTA PE protocol to assess for PE, UDS, cardiac enzymes as well. She is already on Xaretlo for the DVT history. Patient will need an echo as well as a cardiology evaluation Shlomo Hartman
[2018-03-01] MEDS ORDERED: Dextrose 50% SYRINGE Inj (50 ml) IV PRN (17:16)
[2018-03-01] MEDS ORDERED: Glucagon Recombinant 1 mg Inj IM PRN (17:16)
[2018-03-01] MEDS ORDERED: Iodixanol 320 MG/ML 100 ML BOTTLE IV ONE (18:30)
[2018-03-01] MEDS ORDERED: Oxycodone/Acetaminophen 5/325 mg Tab PO STA (18:51)
[2018-03-01] MEDS ORDERED: Digoxin 500 mcg/2ml (0.5 mg/2ml) Inj IVP ONE (20:24)
[2018-03-01 20:38] VITALS: PULSE 155
[2018-03-01] MEDS ORDERED: Metoprolol 1 mg/ml Inj IVP ONE (21:05)
[2018-03-01] MEDS: (Novolin R) Insulin Human Regular 100 units/ml vial SC SCH (22:20)
[2018-03-01] MEDS: Enoxaparin 120 mg Syringe SC SCH (22:39)
[2018-03-02] MEDS ORDERED: Oxycodone/Acetaminophen 5/325 mg Tab PO STA (04:38)
[2018-03-02 05:18] LABS: BASO # 0.1 K/uL (0.0-0.2); BASO % 0.7 % (0.0-2.0); EOS % 0.2 % (0.0-4.0); MEAN CORPUSCULAR HEMOGLOBIN 24.7 pg (27.0-31.0); MONO # 0.2 K/uL (0.0-0.8)
[2018-03-02 05:26] LABS: INR 1.1; PROTHROMBIN TIME 12.3 SECONDS (9.7-12.2)
[2018-03-02 05:27] LABS: HEMOGLOBIN 11.2 g/dL (11.0-16.0); LYMPH # 1.3 K/uL (1.0-4.3); LYMPH % 11.5 % (20.0-40.0); MEAN CELL VOLUME 77.1 fL (81.0-99.0); MEAN PLATELET VOLUME 9.5 fL (7.2-11.7); MONO % 1.4 % (0.0-10.0); NEUT # 9.8 K/uL (1.8-7.0); NEUT % 86.2 % (50.0-75.0); NRBC % 0.3 % (0.0-2.0); RBC 4.52 Mil/uL (3.80-5.20); RED CELL DISTRIBUTION WIDTH 16.9 % (11.5-14.5); WHITE BLOOD COUNT 11.4 K/uL (4.8-10.8)
[2018-03-02 05:44] LABS: ALBUMIN 3.7 g/dL (3.5-5.0); ALT/SGPT 33 U/L (9-52); AST/SGOT 25 U/L (14-36); BLOOD UREA NITROGEN 8 mg/dL (7-17); CALCIUM 8.8 mg/dl (8.6-10.4); GFR NON-AFRICAN AMERICAN > 60
[2018-03-02] MEDS: (Novolin R) Insulin Human Regular 100 units/ml vial SC SCH ×3 (07:08→16:09)
--- NOTE | 2018-03-02 07:49 | CP.PCM.PN ---
Subjective - Date & Time of Evaluation Date of Evaluation: 03/02/18 Time of Evaluation: 07:30 - Subjective Subjective: Medical Attending Note: Patient seen and examined at bedside. Patient denies chest pain, denies shortness of breathe, denies headache, denies nausea, denies vomitting, denies abdominal pain, reports worsening leg swelling. Patient reports last seen PMD: Dr. Wallace about 2 weeks ago. Objective - Vital Signs/Intake and Output Vital Signs (last 24 hours): Temp Pulse Resp BP Pulse Ox 97.8 F 69 11 L 91/51 L 96 03/02/18 00:00 03/02/18 06:55 03/02/18 06:55 03/02/18 06:55 03/02/18 06:55 Intake and Output: 03/02/18 03/02/18 06:59 18:59 Intake Total 638.1 0 Output Total 450 0 Balance 188.1 0 - Medications Medications: Current Medications Albuterol/Ipratropium (Duoneb 3 Mg/0.5 Mg (3 Ml) Ud) 3 ml INH RQ4 PRN PRN Reason: Shortness of Breath Dextrose (Dextrose 50% Inj) 0 ml IV STAT PRN; Protocol PRN Reason: Hypoglycemia Protocol Dextrose (Glutose 15) 0 gm PO ONCE PRN; Protocol PRN Reason: Hypoglycemia Protocol Enoxaparin Sodium (Lovenox) 120 mg SC Q12 SIMIN Last Admin: 03/01/18 22:39 Dose: 120 mg Fluticasone/Vilanterol (Breo Ellipta 100-25 Mcg Inh) 1 puff INH RQ24 SIMIN Glucagon (Glucagen Diagnostic Kit) 0 mg IM STAT PRN; Protocol PRN Reason: Hypoglycemia Protocol Diltiazem HCl 125 mg/ Sodium (Chloride) 125 mls @ 2.5 mls/hr IV .Q24H SIMIN; Protocol Last Titration: 03/02/18 02:00 Dose: 0 mg/hr, 0 mls/hr Dextrose (Dextrose 5% In Water 1000 Ml) 1,000 mls @ 0 mls/hr IV .Q0M PRN; Protocol PRN Reason: Hypoglycemia Protocol Insulin Human Isoph/Insulin Regular (Novolin 70/30 (70/30 Units/Ml) 10 Ml) 18 units SC Q12 ISMIN Insulin Human Regular (Novolin R) 0 unit SC ACHS SIMIN; Protocol Last Admin: 03/02/18 07:08 Dose: 12 unit Phenytoin Sodium (Dilantin) 100 mg PO BID [facility] Last Admin: 03/01/18 20:23 Dose: 100 mg Prednisone (Prednisone Tab) 20 mg PO BID [facility] Last Admin: 03/01/18 20:23 Dose: 20 mg Tiotropium Dale (Spiriva) 18 mcg IH RQD [facility] - Labs Labs: 03/02/18 05:14 03/02/18 05:14 PT 12.3 SECONDS (9.7-12.2) H 03/02/18 05:14 INR 1.1 03/02/18 05:14 APTT 48 SECONDS (21-34) H D 03/02/18 05:14 - Constitutional Appears: Non-toxic, No Acute Distress - Head Exam Head Exam: NORMAL INSPECTION Additional comments: morbid obesity - Eye Exam Eye Exam: EOMI, PERRL Pupil Exam: PERRL - ENT Exam ENT Exam: Mucous Membranes Dry - Respiratory Exam Respiratory Exam: Clear to Ausculation Bilateral, NORMAL BREATHING PATTERN. absent: Rales, Rhonchi, Wheezes - Cardiovascular Exam Cardiovascular Exam: REGULAR RHYTHM, +S1, +S2 - GI/Abdominal Exam GI & Abdominal Exam: Distended (obese habitus), Soft, Normal Bowel Sounds. absent: Firm, Guarding, Rigid, Tenderness, Rebound - Extremities Exam Extremities Exam: Pedal Edema. absent: Tenderness Additional comments: varicosities - Back Exam Back Exam: absent: CVA tenderness (L), CVA tenderness (R) - Neurological Exam Neurological Exam: Alert, Awake, Oriented x3 Neuro motor strength exam: Left Upper Extremity: 5, Right Upper Extremity: 5, Left Lower Extremity: 5, Right Lower Extremity: 5 - Psychiatric Exam Psychiatric exam: Normal Affect, Normal Mood - Skin Skin Exam: Dry, Intact, Normal Color, Warm Assessment and Plan (1) Atrial fibrillation Assessment & Plan: New onset CHADS:1 HASBLED: 0 Echo pending Cardiology on board Patient is on therapuetic Lovenox Patient was on Xarelto as outpatient for b/l DVTS; diagnosed per patient one year ago Status: Acute (2) Morbid obesity Assessment & Plan: Patient is aware of lifestyle modifications. She is aware she is needs to consider diet modification with her doctor and potentially considering weight loss surgery. I have encouraged her to take an active effort to make dietary changes and engage in exercise daily to improve quality life BMI is above 40, and co morbidities of asthma, and diabetes Status: Acute (3) DVT (deep venous thrombosis) Assessment & Plan: patient has history of b/l DVTs Venous dopplers to check for current DVT Pending CT angio r/o PE==>unremarkable prelim Patient was previously on Xarelto as outpatient Risk factor: morbid obesity Status: Chronic (4) Asthma Assessment & Plan: Patient is not in acute exacerbation Duonebs Spiriva Breo (Advair not available on hospital formulary) Patient has an outpatient pulm; does not come here. Predisone 20mg PO bid Status: Acute (5) Seizure disorder Assessment & Plan: dilantin 100mg PO TID Status: Chronic (6) Prophylactic measure Assessment & Plan: Theraputic Lovenox Status: Acute Attending/Attestation - Attestation I have personally seen and examined this patient.: Yes I have fully participated in the care of the patient.: Yes I have reviewed all pertinent clinical information, including history, physical exam and plan: Yes
[2018-03-02] MEDS: Albuterol-Ipratrop 3 mg / 0.5 (3 ml) UD INH PRN (08:17)
--- NOTE | 2018-03-02 08:38 | CP.CCUPN ---
<Jena Randhawa - Last Filed: 03/02/18 15:54> CCU Subjective - Physician Review Events Since Last Encounter (Free Text): 03/02/18 08:18 Patient received PO digoxin- remained in Afib. Patient later received Lopressor and converted to sinus rhythm. Cardizem drip was stopped. Subjective (Free Text): 03/02/18 15:54 Patient was seen and examined this morning. Her chest pain is resolved. She is still complaining of RLE pain and headache. Denies shortness of breath and palpitations. Critical Care Time Spent (in minutes): 35 CCU Objective - Vital Signs / Intake & Output Vital Signs (Last 4 hours): Vital Signs Pulse Resp BP Pulse Ox 03/02/18 06:55 69 11 L 91/51 L 96 03/02/18 06:30 70 12 99 03/02/18 05:55 65 14 104/57 L 98 03/02/18 05:30 71 12 99 03/02/18 05:20 82 13 99 03/02/18 04:58 67 17 103/57 L 03/02/18 04:40 91 H 23 92 L 03/02/18 04:37 90 22 119/75 Intake and Output (Last 8hrs): Intake & Output 03/01/18 03/02/18 03/02/18 22:59 06:59 14:59 Intake Total 181.1 462 0 Output Total 300 450 0 Balance -118.9 12 0 Weight 346 lb Intake: IV 25.4 55 Intake, IV Amount 35.7 47 0 Right Internal Jugular 35.7 47 0 Oral 120 360 0 Output: Urine 300 450 0 Urine, Voided 300 450 0 Other: # Voids Urine, Voided 1 - Physical Exam Head: Positive for: Atraumatic, Normocephalic Pupils: Positive for: PERRL Extroacular Muscles: Positive for: EOMI Conjunctiva: Positive for: Normal Mouth: Positive for: Moist Mucous Membranes Respiratory/Chest: Positive for: Clear to Auscultation. Negative for: Respiratory Distress, Accessory Muscle Use Cardiovascular: Positive for: Regular Rate and Rhythm, Normal S1, S2, Peripheal Pulses Present Abdomen: Negative for: Tenderness, Peritoneal Signs, Rebound Upper Extremity: Positive for: Edema, Neurovascularly Intact, Capillary Refill < 2s Lower Extremity: Positive for: Edema, Neurovascularly Intact, Capillary Refill < 2 s Neurological: Positive for: GCS=15, CN II-XII Intact, Speech Normal Skin: Positive for: Warm, Dry, Normal Color Psychiatric: Positive for: Alert, Oriented x 3, Normal Insight, Normal Concentration - Medications Active Medications: Active Medications Generic Name Dose Route Start Last Admin Trade Name Freq PRN Reason Stop Dose Admin Albuterol/Ipratropium 3 ml 03/01/18 19:53 Duoneb 3 Mg/0.5 Mg (3 Ml) Ud INH RQ4 PRN Shortness of Breath Dextrose 0 ml 03/01/18 17:16 Dextrose 50% Inj IV STAT PRN Hypoglycemia Protocol Protocol Dextrose 0 gm 03/01/18 17:16 Glutose 15 PO ONCE PRN Hypoglycemia Protocol Protocol Enoxaparin Sodium 120 mg 03/01/18 22:00 03/01/18 22:39 Lovenox SC 120 mg Q12 SIMIN Administration Fluticasone/Vilanterol 1 puff 03/02/18 08:00 Breo Ellipta 100-25 Mcg Inh INH RQ24 SIMIN Glucagon 0 mg 03/01/18 17:16 Glucagen Diagnostic Kit IM STAT PRN Hypoglycemia Protocol Protocol Diltiazem HCl 125 mg/ Sodium 125 mls @ 2.5 mls/hr 03/01/18 16:07 03/02/18 02:00 Chloride IV 0 mg/hr .Q24H SIMIN 0 mls/hr Titration Protocol 2.5 MG/HR Dextrose 1,000 mls @ 0 mls/hr 03/01/18 17:16 Dextrose 5% In Water 1000 Ml IV .Q0M PRN Hypoglycemia Protocol Protocol Per Protocol Insulin Human Isoph/Insulin Regular 18 units 03/02/18 10:00 Novolin 70/30 (70/30 Units/Ml) 10 Ml SC Q12 SIMIN Insulin Human Regular 0 unit 03/01/18 22:00 03/02/18 07:08 Novolin R SC 12 unit ACHS SIMIN Administration Protocol Phenytoin Sodium 100 mg 03/01/18 20:00 03/01/18 20:23 Dilantin PO 100 mg BID SIMIN Administration Prednisone 20 mg 03/01/18 20:00 03/01/18 20:23 Prednisone Tab PO 20 mg BID SIMIN Administration Tiotropium [place] 18 mcg 03/02/18 08:00 Spiriva IH RQD SIMIN - Patient Studies Lab Studies: Lab Studies 03/02/18 03/02/18 03/02/18 Range/Units 05:14 05:14 05:14 WBC 11.4 H (4.8-10.8) K/uL RBC 4.52 (3.80-5.20) Mil/uL Hgb 11.2 (11.0-16.0) g/dL Hct 34.8 (34.0-47.0) % MCV 77.1 L (81.0-99.0) fL MCH 24.7 L (27.0-31.0) pg MCHC 32.0 L (33.0-37.0) g/dL RDW 16.9 H (11.5-14.5) % Plt Count 256 (130-400) K/uL MPV 9.5 (7.2-11.7) fL Neut % (Auto) 86.2 H (50.0-75.0) % Lymph % (Auto) 11.5 L (20.0-40.0) % [place] % (Auto) 1.4 (0.0-10.0) % Eos % (Auto) 0.2 (0.0-4.0) % Baso % (Auto) 0.7 (0.0-2.0) % Neut # (Auto) 9.8 H (1.8-7.0) K/uL Lymph # (Auto) 1.3 (1.0-4.3) K/uL [place] # (Auto) 0.2 (0.0-0.8) K/uL Eos # (Auto) 0.0 (0.0-0.7) K/uL Baso # (Auto) 0.1 (0.0-0.2) K/uL PT 12.3 H (9.7-12.2) SECONDS INR 1.1 APTT 48 H D (21-34) SECONDS Sodium 133 (132-148) mmol/L Potassium 4.5 (3.6-5.2) mmol/L Chloride 96 L (98-107) mmol/L Carbon Dioxide 25 (22-30) mmol/L Anion Gap 16 (10-20) BUN 8 (7-17) mg/dL Creatinine 0.7 (0.7-1.2) mg/dL Est GFR ( Amer) > 60 Est GFR (Non-Af Amer) > 60 Random Glucose 403 H* (65-105) mg/dL Calcium 8.8 (8.6-10.4) mg/dl Phosphorus 2.6 (2.5-4.5) mg/dL Magnesium 1.9 (1.6-2.3) mg/dL Total Bilirubin 0.7 (0.2-1.3) mg/dL AST 25 (14-36) U/L ALT 33 (9-52) U/L Alkaline Phosphatase 100 (38-126) U/L Total Creatine Kinase (30-135) U/L CK-MB (Mass) (0.0-3.38) ng/mL Troponin I (0.00-0.120) ng/mL Total Protein 7.2 (6.3-8.3) g/dL Albumin 3.7 (3.5-5.0) g/dL Globulin 3.5 (2.2-3.9) gm/dL Albumin/Globulin Ratio 1.0 (1.0-2.1) Urine HCG, Qual (NEGATIVE) Phenytoin (10-20) ug/mL 03/01/18 03/01/18 03/01/18 Range/Units 15:24 13:38 12:56 WBC (4.8-10.8) K/uL RBC (3.80-5.20) Mil/uL Hgb (11.0-16.0) g/dL Hct (34.0-47.0) % MCV (81.0-99.0) fL MCH (27.0-31.0) pg MCHC (33.0-37.0) g/dL RDW (11.5-14.5) % Plt Count (130-400) K/uL MPV (7.2-11.7) fL Neut % (Auto) (50.0-75.0) % Lymph % (Auto) (20.0-40.0) % [place] % (Auto) (0.0-10.0) % Eos % (Auto) (0.0-4.0) % Baso % (Auto) (0.0-2.0) % Neut # (Auto) (1.8-7.0) K/uL Lymph # (Auto) (1.0-4.3) K/uL [place] # (Auto) (0.0-0.8) K/uL Eos # (Auto) (0.0-0.7) K/uL Baso # (Auto) (0.0-0.2) K/uL PT (9.7-12.2) SECONDS INR APTT (21-34) SECONDS Sodium 134 (132-148) mmol/L Potassium 4.8 (3.6-5.2) mmol/L Chloride 97 L (98-107) mmol/L Carbon Dioxide 24 (22-30) mmol/L Anion Gap 19 (10-20) BUN 7 (7-17) mg/dL Creatinine 0.7 (0.7-1.2) mg/dL Est GFR ( Amer) > 60 Est GFR (Non-Af Amer) > 60 Random Glucose 387 H (65-105) mg/dL Calcium 8.7 (8.6-10.4) mg/dl Phosphorus (2.5-4.5) mg/dL Magnesium (1.6-2.3) mg/dL Total Bilirubin 1.3 (0.2-1.3) mg/dL AST 37 H D (14-36) U/L ALT 25 (9-52) U/L Alkaline Phosphatase 88 (38-126) U/L Total Creatine Kinase 62 (30-135) U/L CK-MB (Mass) 0.30 (0.0-3.38) ng/mL Troponin I < 0.0120 (0.00-0.120) ng/mL Total Protein 7.8 (6.3-8.3) g/dL Albumin 3.9 (3.5-5.0) g/dL Globulin 3.9 (2.2-3.9) gm/dL Albumin/Globulin Ratio 1.0 (1.0-2.1) Urine HCG, Qual Negative (NEGATIVE) Phenytoin < 3.0 L (10-20) ug/mL 03/01/18 03/01/18 Range/Units 12:56 12:56 WBC 9.2 (4.8-10.8) K/uL RBC 4.58 (3.80-5.20) Mil/uL Hgb 11.5 (11.0-16.0) g/dL Hct 35.2 (34.0-47.0) % MCV 76.9 L (81.0-99.0) fL MCH 25.2 L (27.0-31.0) pg MCHC 32.7 L (33.0-37.0) g/dL RDW 17.1 H (11.5-14.5) % Plt Count 272 (130-400) K/uL MPV 10.3 (7.2-11.7) fL Neut % (Auto) 57.3 (50.0-75.0) % Lymph % (Auto) 34.7 (20.0-40.0) % [place] % (Auto) 4.7 (0.0-10.0) % Eos % (Auto) 2.5 (0.0-4.0) % Baso % (Auto) 0.8 (0.0-2.0) % Neut # (Auto) 5.3 (1.8-7.0) K/uL Lymph # (Auto) 3.2 (1.0-4.3) K/uL [place] # (Auto) 0.4 (0.0-0.8) K/uL Eos # (Auto) 0.2 (0.0-0.7) K/uL Baso # (Auto) 0.1 (0.0-0.2) K/uL PT 11.7 (9.7-12.2) SECONDS INR 1.1 APTT 38 H (21-34) SECONDS Sodium (132-148) mmol/L Potassium (3.6-5.2) mmol/L Chloride (98-107) mmol/L Carbon Dioxide (22-30) mmol/L Anion Gap (10-20) BUN (7-17) mg/dL Creatinine (0.7-1.2) mg/dL Est GFR ( Amer) Est GFR (Non-Af Amer) Random Glucose (65-105) mg/dL Calcium (8.6-10.4) mg/dl Phosphorus (2.5-4.5) mg/dL Magnesium (1.6-2.3) mg/dL Total Bilirubin (0.2-1.3) mg/dL AST (14-36) U/L ALT (9-52) U/L Alkaline Phosphatase (38-126) U/L Total Creatine Kinase (30-135) U/L CK-MB (Mass) (0.0-3.38) ng/mL Troponin I (0.00-0.120) ng/mL Total Protein (6.3-8.3) g/dL Albumin (3.5-5.0) g/dL Globulin (2.2-3.9) gm/dL Albumin/Globulin Ratio (1.0-2.1) Urine HCG, Qual (NEGATIVE) Phenytoin (10-20) ug/mL Laboratory Results - last 24 hr 03/01/18 03/01/18 03/01/18 12:56 12:56 12:56 WBC 9.2 RBC 4.58 Hgb 11.5 Hct 35.2 MCV 76.9 L MCH 25.2 L MCHC 32.7 L RDW 17.1 H Plt Count 272 MPV 10.3 Neut % (Auto) 57.3 Lymph % (Auto) 34.7 [place] % (Auto) 4.7 Eos % (Auto) 2.5 Baso % (Auto) 0.8 Neut # (Auto) 5.3 Lymph # (Auto) 3.2 [place] # (Auto) 0.4 Eos # (Auto) 0.2 Baso # (Auto) 0.1 PT 11.7 INR 1.1 APTT 38 H Sodium 134 Potassium 4.8 Chloride 97 L Carbon Dioxide 24 Anion Gap 19 BUN 7 Creatinine 0.7 Est GFR ( Amer) > 60 Est GFR (Non-Af Amer) > 60 Random Glucose 387 H Calcium 8.7 Phosphorus Magnesium Total Bilirubin 1.3 AST 37 H D ALT 25 Alkaline Phosphatase 88 Total Creatine Kinase 62 CK-MB (Mass) 0.30 Troponin I < 0.0120 Total Protein 7.8 Albumin 3.9 Globulin 3.9 Albumin/Globulin Ratio 1.0 Urine HCG, Qual Phenytoin 03/01/18 03/01/18 03/02/18 13:38 15:24 05:14 WBC 11.4 H RBC 4.52 Hgb 11.2 Hct 34.8 MCV 77.1 L MCH 24.7 L MCHC 32.0 L RDW 16.9 H Plt Count 256 MPV 9.5 Neut % (Auto) 86.2 H Lymph % (Auto) 11.5 L [place] % (Auto) 1.4 Eos % (Auto) 0.2 Baso % (Auto) 0.7 Neut # (Auto) 9.8 H Lymph # (Auto) 1.3 [place] # (Auto) 0.2 Eos # (Auto) 0.0 Baso # (Auto) 0.1 PT INR APTT Sodium Potassium Chloride Carbon Dioxide Anion Gap BUN Creatinine Est GFR ( Amer) Est GFR (Non-Af Amer) Random Glucose Calcium Phosphorus Magnesium Total Bilirubin AST ALT Alkaline Phosphatase Total Creatine Kinase CK-MB (Mass) Troponin I Total Protein Albumin Globulin Albumin/Globulin Ratio Urine HCG, Qual Negative Phenytoin < 3.0 L 03/02/18 03/02/18 05:14 05:14 WBC RBC Hgb Hct MCV MCH MCHC RDW Plt Count MPV Neut % (Auto) Lymph % (Auto) [place] % (Auto) Eos % (Auto) Baso % (Auto) Neut # (Auto) Lymph # (Auto) [place] # (Auto) Eos # (Auto) Baso # (Auto) PT 12.3 H INR 1.1 APTT 48 H D Sodium 133 Potassium 4.5 Chloride 96 L Carbon Dioxide 25 Anion Gap 16 BUN 8 Creatinine 0.7 Est GFR ( Amer) > 60 Est GFR (Non-Af Amer) > 60 Random Glucose 403 H* Calcium 8.8 Phosphorus 2.6 Magnesium 1.9 Total Bilirubin 0.7 AST 25 ALT 33 Alkaline Phosphatase 100 Total Creatine Kinase CK-MB (Mass) Troponin I Total Protein 7.2 Albumin 3.7 Globulin 3.5 Albumin/Globulin Ratio 1.0 Urine HCG, Qual Phenytoin EKG/Cardiology Studies: Cardiology / EKG Studies 03/01/18 14:06 EKG [ELECTROCARDIOGRAM] Stat Comment: Mode Of Transportation: BED Reason For Exam: cp Fingerstick Blood Sugar Results: 403 Results Reviewed to Date: Yes Review of Systems - Review of Systems All systems: reviewed and no additional remarkable complaints except - Constitutional Constitutional: absent: Fever, Chills, Sweats - EENT Eyes: UNREMARKABLE. absent: Change in Vision Ears: UNREMARKABLE Nose/Mouth/Throat: UNREMARKABLE - Cardiovascular Cardiovascular: Edema, UNREMARKABLE. absent: Chest Pain, Chest Pain at Rest, Diaphoresis, Dyspnea - Respiratory Respiratory: UNREMARKABLE. absent: Cough, Dyspnea - Gastrointestinal Gastrointestinal: UNREMARKABLE. absent: Abdominal Pain, Change in Bowel Habits, Nausea, Vomiting - Genitourinary Genitourinary: UNREMARKABLE. absent: Dysuria - Musculoskeletal Musculoskeletal: As Par HPI, Arthralgias, Myalgias. absent: Numbness, Tingling - Integumentary Integumentary: UNREMARKABLE. absent: Lesions - Neurological Neurological: Headaches. absent: Focal Weakness - Psychiatric Psychiatric: UNREMARKABLE - Endocrine Endocrine: UNREMARKABLE - Hematologic/Lymphatic Hematologic: UNREMARKABLE. absent: Easy Bleeding, Easy Bruising, Lymphadenopathy Critical Care Progress Note - Extremities/Vascular Does the Patient have a Central Venous Catheter?: No Does the Patient need a Central Venous Catheter?: No Does the Patient have a Rachel Catheter?: No Does the Patient need a Rachel Catheter?: No - Prophylaxis GI Prophylaxis GI: Pepsid - Prophylaxis DVT Prophylaxis DVT: Not Indicated (on Xarelto) - Nutrition Nutrition: Nutrition Category Date Time Status Diabetic [Consistent Carbohydrate] [DIET] Diets 03/02/18 Breakfast Active Assessment/Plan - Assessment and Plan (Free Text) Assessment: Patient is a 52 yo female who presented with new onset Afib RVR. Given Cardizem IVP and started on Cardizem drip in ED. Given digoxin without and change in rate or rhythm. IV Lopressor converted patient to NSR. She was taken off Cardizem drip. CTA chest did not show PE. Cardiology consulted. Patient placed on therapeutic Lovenox but changed back to Xarelto today. Blood glucose consistently elevated. Patient restarted on her home dose NPH insulin in addition to high dose sliding scale. Patient able to be transferred to telemetry unit. 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, now NSR - Troponin negative - Discontinue Cardizem drip - CTA chest: no evidence of PE - Continue Xarelto 20 mg PO daily - Metoprolol 25 mg PO BID - Cardiology consulted (Ama[place]) Hypotension- resolved - Patient presented normotensive, became hypotensive to 70/40 after 25 mg Cardizem IV and drip, resolved after 1L NS bolus - Monitor vitals - Lipid panel pending Pulm: Asthma - Maintain spO2>92%- supplemental O2 PRN - Duoneb Q4H PRN - Spiriva 18 mcg daily - Breo-Ellipta 100/25 daily - Prednisone 20 mg PO BID (home dose) GI: - Diabetic diet : - I's & O's - Replete electrolytes PRN Endo: T2DM - Maintain euglycemia - Hypoglycemia protocol - Accuchecks Q4H with ISS high dose - NPH 20 units Q12H - A1c pending - tobacco educator consulted - Ground Water Technician consulted (Cam) - TSH, free T4 pending Heme: Recurrent DVTs - Xarelto 20 mg PO daily - CTA chest: no evidence of PE - B/l LE Dopplers pending - Monitor H&H ID: - Afebrile - No leukocytosis PPx: VTE: SCDs, Xarelto 20 mg PO daily GI: PTX 40 mg IV daily Code status: full code Case discussed with attending, Dr. Silverio. PGY-1 Jena Randhawa D.O. <Jim Silverio - Last Filed: 03/02/18 18:20> CCU Objective - Vital Signs / Intake & Output Vital Signs (Last 4 hours): Vital Signs Temp Pulse BP Pulse Ox 03/02/18 16:00 97.9 F 89 97 03/02/18 15:55 73 92/53 L 96 03/02/18 15:50 74 98 03/02/18 15:40 74 97 03/02/18 15:30 76 98 03/02/18 15:20 74 97 03/02/18 15:10 72 96 03/02/18 15:00 70 96 03/02/18 14:55 76 100/49 L 87 L 03/02/18 14:50 72 94 L 03/02/18 14:40 72 95 03/02/18 14:30 79 96 03/02/18 14:20 69 95 Intake and Output (Last 8hrs): Intake & Output 03/02/18 03/02/18 03/02/18 06:59 14:59 22:59 Intake Total 462 960 50 Output Total 450 300 Balance 12 660 50 Weight 346 lb Intake: IV 55 Intake, IV Amount 47 20 Left Antecubital 10 Right External Jugular 10 Right Internal Jugular 47 0 Oral 360 940 50 Output: Urine 450 300 Urine, Voided 450 300 Other: # Voids Urine, Voided 1 # Bowel Movements 0 - Medications Active Medications: Active Medications Generic Name Dose Route Start Last Admin Trade Name Freq PRN Reason Stop Dose Admin Acetaminophen 650 mg 03/02/18 15:58 Tylenol 325mg Tab PO Q6 PRN Pain, Mild (1-3) Albuterol/Ipratropium 3 ml 03/01/18 19:53 03/02/18 08:17 Duoneb 3 Mg/0.5 Mg (3 Ml) Ud INH 3 ml RQ4 PRN Administration Shortness of Breath Dextrose 0 ml 03/01/18 17:16 Dextrose 50% Inj IV STAT PRN Hypoglycemia Protocol Protocol Dextrose 0 gm 03/01/18 17:16 Glutose 15 PO ONCE PRN Hypoglycemia Protocol Protocol Famotidine 20 mg 03/02/18 16:00 03/02/18 16:13 Pepcid PO 20 mg DAILY SIMIN Administration Fluticasone/Vilanterol 1 puff 03/02/18 08:00 03/02/18 08:52 Breo Ellipta 100-25 Mcg Inh INH 1 puff RQ24 SIMIN Administration Glucagon 0 mg 03/01/18 17:16 Glucagen Diagnostic Kit IM STAT PRN Hypoglycemia Protocol Protocol Dextrose 1,000 mls @ 0 mls/hr 03/01/18 17:16 Dextrose 5% In Water 1000 Ml IV .Q0M PRN Hypoglycemia Protocol Protocol Per Protocol Insulin Human Isoph/Insulin Regular 20 units 03/02/18 16:21 Novolin 70/30 (70/30 Units/Ml) 10 Ml SC Q12 SIMIN Insulin Human Regular 0 unit 03/02/18 12:00 03/02/18 16:09 Novolin R SC 6 u Q4 SIMIN Administration Protocol Metoprolol Tartrate 25 mg 03/02/18 22:00 03/02/18 11:54 Lopressor PO 25 mg Q12 SIMIN Administration Phenytoin Sodium 100 mg 03/01/18 20:00 03/02/18 17:50 Dilantin PO 100 mg BID SIMIN Administration Prednisone 20 mg 03/01/18 20:00 03/02/18 17:50 Prednisone Tab PO 20 mg BID SIMIN Administration Rivaroxaban 20 mg 03/02/18 11:15 03/02/18 11:53 Xarelto PO 20 mg DAILY SIMIN Administration Tiotropium [place] 18 mcg 03/02/18 08:00 03/02/18 08:52 Spiriva IH 18 mcg RQD SIMIN Administration - Patient Studies Lab Studies: Microbiology Studies 03/01/18 17:46 MRSA Culture (Admit) - Final Naris MRSA NOT DETECTED Lab Studies 03/02/18 03/02/18 03/02/18 Range/Units 16:03 11:28 07:46 WBC (4.8-10.8) K/uL RBC (3.80-5.20) Mil/uL Hgb (11.0-16.0) g/dL Hct (34.0-47.0) % MCV (81.0-99.0) fL MCH (27.0-31.0) pg MCHC (33.0-37.0) g/dL RDW (11.5-14.5) % Plt Count (130-400) K/uL MPV (7.2-11.7) fL Neut % (Auto) (50.0-75.0) % Lymph % (Auto) (20.0-40.0) % [place] % (Auto) (0.0-10.0) % Eos % (Auto) (0.0-4.0) % Baso % (Auto) (0.0-2.0) % Neut # (Auto) (1.8-7.0) K/uL Lymph # (Auto) (1.0-4.3) K/uL [place] # (Auto) (0.0-0.8) K/uL Eos # (Auto) (0.0-0.7) K/uL Baso # (Auto) (0.0-0.2) K/uL PT (9.7-12.2) SECONDS INR APTT (21-34) SECONDS Sodium (132-148) mmol/L Potassium (3.6-5.2) mmol/L Chloride (98-107) mmol/L Carbon Dioxide (22-30) mmol/L Anion Gap (10-20) BUN (7-17) mg/dL Creatinine (0.7-1.2) mg/dL Est GFR ( Amer) Est GFR (Non-Af Amer) POC Glucose (mg/dL) 289 H 280 H 309 H (65-110) mg/dL Random Glucose (65-105) mg/dL Calcium (8.6-10.4) mg/dl Phosphorus (2.5-4.5) mg/dL Magnesium (1.6-2.3) mg/dL Total Bilirubin (0.2-1.3) mg/dL AST (14-36) U/L ALT (9-52) U/L Alkaline Phosphatase (38-126) U/L Total Protein (6.3-8.3) g/dL Albumin (3.5-5.0) g/dL Globulin (2.2-3.9) gm/dL Albumin/Globulin Ratio (1.0-2.1) 03/02/18 03/02/18 03/02/18 Range/Units 05:14 05:14 05:14 WBC 11.4 H (4.8-10.8) K/uL RBC 4.52 (3.80-5.20) Mil/uL Hgb 11.2 (11.0-16.0) g/dL Hct 34.8 (34.0-47.0) % MCV 77.1 L (81.0-99.0) fL MCH 24.7 L (27.0-31.0) pg MCHC 32.0 L (33.0-37.0) g/dL RDW 16.9 H (11.5-14.5) % Plt Count 256 (130-400) K/uL MPV 9.5 (7.2-11.7) fL Neut % (Auto) 86.2 H (50.0-75.0) % Lymph % (Auto) 11.5 L (20.0-40.0) % [place] % (Auto) 1.4 (0.0-10.0) % Eos % (Auto) 0.2 (0.0-4.0) % Baso % (Auto) 0.7 (0.0-2.0) % Neut # (Auto) 9.8 H (1.8-7.0) K/uL Lymph # (Auto) 1.3 (1.0-4.3) K/uL [place] # (Auto) 0.2 (0.0-0.8) K/uL Eos # (Auto) 0.0 (0.0-0.7) K/uL Baso # (Auto) 0.1 (0.0-0.2) K/uL PT 12.3 H (9.7-12.2) SECONDS INR 1.1 APTT 48 H D (21-34) SECONDS Sodium 133 (132-148) mmol/L Potassium 4.5 (3.6-5.2) mmol/L Chloride 96 L (98-107) mmol/L Carbon Dioxide 25 (22-30) mmol/L Anion Gap 16 (10-20) BUN 8 (7-17) mg/dL Creatinine 0.7 (0.7-1.2) mg/dL Est GFR ( Amer) > 60 Est GFR (Non-Af Amer) > 60 POC Glucose (mg/dL) (65-110) mg/dL Random Glucose 403 H* (65-105) mg/dL Calcium 8.8 (8.6-10.4) mg/dl Phosphorus 2.6 (2.5-4.5) mg/dL Magnesium 1.9 (1.6-2.3) mg/dL Total Bilirubin 0.7 (0.2-1.3) mg/dL AST 25 (14-36) U/L ALT 33 (9-52) U/L Alkaline Phosphatase 100 (38-126) U/L Total Protein 7.2 (6.3-8.3) g/dL Albumin 3.7 (3.5-5.0) g/dL Globulin 3.5 (2.2-3.9) gm/dL Albumin/Globulin Ratio 1.0 (1.0-2.1) 03/01/ Range/Units 21:29 WBC (4.8-10.8) K/uL RBC (3.80-5.20) Mil/uL Hgb (11.0-16.0) g/dL Hct (34.0-47.0) % MCV (81.0-99.0) fL MCH (27.0-31.0) pg MCHC (33.0-37.0) g/dL RDW (11.5-14.5) % Plt Count (130-400) K/uL MPV (7.2-11.7) fL Neut % (Auto) (50.0-75.0) % Lymph % (Auto) (20.0-40.0) % [place] % (Auto) (0.0-10.0) % Eos % (Auto) (0.0-4.0) % Baso % (Auto) (0.0-2.0) % Neut # (Auto) (1.8-7.0) K/uL Lymph # (Auto) (1.0-4.3) K/uL [place] # (Auto) (0.0-0.8) K/uL Eos # (Auto) (0.0-0.7) K/uL Baso # (Auto) (0.0-0.2) K/uL PT (9.7-12.2) SECONDS INR APTT (21-34) SECONDS Sodium (132-148) mmol/L Potassium (3.6-5.2) mmol/L Chloride (98-107) mmol/L Carbon Dioxide (22-30) mmol/L Anion Gap (10-20) BUN (7-17) mg/dL Creatinine (0.7-1.2) mg/dL Est GFR ( Amer) Est GFR (Non-Af Amer) POC Glucose (mg/dL) 267 H (65-110) mg/dL Random Glucose (65-105) mg/dL Calcium (8.6-10.4) mg/dl Phosphorus (2.5-4.5) mg/dL Magnesium (1.6-2.3) mg/dL Total Bilirubin (0.2-1.3) mg/dL AST (14-36) U/L ALT (9-52) U/L Alkaline Phosphatase (38-126) U/L Total Protein (6.3-8.3) g/dL Albumin (3.5-5.0) g/dL Globulin (2.2-3.9) gm/dL Albumin/Globulin Ratio (1.0-2.1) Laboratory Results - last 24 hr 03/01/18 03/02/18 03/02/18 21:29 05:14 05:14 WBC 11.4 H RBC 4.52 Hgb 11.2 Hct 34.8 MCV 77.1 L MCH 24.7 L MCHC 32.0 L RDW 16.9 H Plt Count 256 MPV 9.5 Neut % (Auto) 86.2 H Lymph % (Auto) 11.5 L [place] % (Auto) 1.4 Eos % (Auto) 0.2 Baso % (Auto) 0.7 Neut # (Auto) 9.8 H Lymph # (Auto) 1.3 [place] # (Auto) 0.2 Eos # (Auto) 0.0 Baso # (Auto) 0.1 PT 12.3 H INR 1.1 APTT 48 H D Sodium Potassium Chloride Carbon Dioxide Anion Gap BUN Creatinine Est GFR ( Amer) Est GFR (Non-Af Amer) POC Glucose (mg/dL) 267 H Random Glucose Calcium Phosphorus Magnesium Total Bilirubin AST ALT Alkaline Phosphatase Total Protein Albumin Globulin Albumin/Globulin Ratio 03/02/18 03/02/18 03/02/18 05:14 07:46 11:28 WBC RBC Hgb Hct MCV MCH MCHC RDW Plt Count MPV Neut % (Auto) Lymph % (Auto) [place] % (Auto) Eos % (Auto) Baso % (Auto) Neut # (Auto) Lymph # (Auto) [place] # (Auto) Eos # (Auto) Baso # (Auto) PT INR APTT Sodium 133 Potassium 4.5 Chloride 96 L Carbon Dioxide 25 Anion Gap 16 BUN 8 Creatinine 0.7 Est GFR ( Amer) > 60 Est GFR (Non-Af Amer) > 60 POC Glucose (mg/dL) 309 H 280 H Random Glucose 403 H* Calcium 8.8 Phosphorus 2.6 Magnesium 1.9 Total Bilirubin 0.7 AST 25 ALT 33 Alkaline Phosphatase 100 Total Protein 7.2 Albumin 3.7 Globulin 3.5 Albumin/Globulin Ratio 1.0 03/02/18 16:03 WBC RBC Hgb Hct MCV MCH MCHC RDW Plt Count MPV Neut % (Auto) Lymph % (Auto) [place] % (Auto) Eos % (Auto) Baso % (Auto) Neut # (Auto) Lymph # (Auto) [place] # (Auto) Eos # (Auto) Baso # (Auto) PT INR APTT Sodium Potassium Chloride Carbon Dioxide Anion Gap BUN Creatinine Est GFR ( Amer) Est GFR (Non-Af Amer) POC Glucose (mg/dL) 289 H Random Glucose Calcium Phosphorus Magnesium Total Bilirubin AST ALT Alkaline Phosphatase Total Protein Albumin Globulin Albumin/Globulin Ratio Critical Care Progress Note - Nutrition Nutrition: Nutrition Category Date Time Status Diabetic [Consistent Carbohydrate] [DIET] Diets 03/02/18 Breakfast Active Attending/Attestation - Attestation I have personally seen and examined this patient.: Yes I have fully participated in the care of the patient.: Yes I have reviewed all pertinent clinical information: Yes Notes (Text): 03/02/18 18:18 I have seen and examined the patient. Medical records, lab studies, and imaging were reviewed by me and a management plan was formulated on multidisciplinary rounds with resident Dr. Randhawa. I agree with their documented assessment and plan. Patient's afib is now rate controlled with metoprolol po. Glucose is better controlled with increased NPH 20 units q12h, and SISS on high coverage. Steroids for asthma are also exacerbating hyperglycemia. Patient is clinically stable for downgrade to the floors. Critical Care Time 35 minutes. Multi-disciplinary rounds were performed with house staff, nursing, speech therapy, respiratory therapy, pharmacy and nutrition with integrated input from the primary team/attending and other consulting services. The documented time is cumulative and includes review of patient data/exams/labs/chart review and examination of the patient on rounds and throughout the day; time is exclusive of any procedures or teaching time.
[2018-03-02] MEDS: Fluticasone-Vilanterol 100/25mcg Diskus INH SCH (08:52)
[2018-03-02] MEDS: Tiotropium 18 mcg Cap For Inhalation IH SCH (08:52)
[2018-03-02] MEDS: Enoxaparin 120 mg Syringe SC SCH (09:47)
--- NOTE | 2018-03-02 09:50 | CT ---
Date of service: 03/01/2018 CTA chest PE protocol Indication: r/o PE Technique: Contiguous axial images were obtained through the chest with intravenous contrast enhancement. Sagittal and coronal reconstructions were generated and reviewed. This CT exam was performed using 1 or more of the following dose reduction techniques: Automated exposure control, adjustment of the MAA and/or kV according to patient size, and/or use of iterative reconstruction technique. IV contrast: 100 mL Visipaque 320 Radiation dose (DLP): 554.7 MGy-cm. Comparison: Chest x-ray performed 03/01/18 Findings: Examination limited by habitus. Visualized portions of the inferior thyroid gland appear unremarkable. The mediastinal and hilar vascular structures appear within normal limits. The heart appears within normal limits of size. No large central or segmental pulmonary embolus evident. No focal consolidation. No pleural effusion. No pneumothorax. No suspicious pulmonary nodules measuring greater than 5 mm. Limited visualized portions of the upper abdomen: Cholecystectomy. Degenerative changes of the spine. Impression: No large central or segmental pulmonary embolus identified. Cholecystectomy clips. Preliminary impression was provided by Viss.
[2018-03-02] MEDS ORDERED: (Novolin 70/30) NPH/Regular 70/30 Units/ml 10 ml vial SC SCH ×2 (10:00→16:21)
--- NOTE | 2018-03-02 19:12 | CARD ---
APPROVED REPORT Date of service: 03/02/2018 EXAM: Two-dimensional and M-mode echocardiogram with Doppler and color Doppler. Other Information Quality : Technically LimitedRhythm : NSR INDICATION Atrial Fibrillation TDS RISK FACTORS Obesity M-Mode DIMENSIONS RVDd2.42 (2.1-3.2cm)Left Atrium (MM)3.28 (2.5-4.0cm) IVSd0.82 (0.7-1.1cm)Aortic Root2.73 (2.2-3.7cm) LVDd5.23 (4.0-5.6cm)Aortic Cusp Exc.1.56 (1.5-2.0cm) PWd0.86 (0.7-1.1cm)FS (%) 38 % LVDs3.24 (2.0-3.8cm)LVEF (%)68 (>50%) Mitral Valve MV E Urwpagfr81.9cm/sMV A Ktdldnol47.5cm/sE/A ratio1.5 TDI Lateral E' Peak V8.68cm/sMedial E' Peak V11.06cm/sE/Lateral E'9.1 E/Medial E'7.1 Tricuspid Valve TR Peak Qufslycj907ar/sTR Peak Gr.[id number] <Conclusion> tds. very poor window. la,lv & ra rv size appears normal. normal lv & rv systolic function with lvef of 60-65%. aortic,tv & pv not well seen to comment. mitral is probably normal. doppler is very suboptimal. no pericardial effusion,. suggest dontrell.
--- NOTE | 2018-03-02 19:53 | CARD ---
APPROVED REPORT Date of service: 03/01/2018 EKG Measurement Heart [id number] <Conclusion> Atrial fibrillation with rapid ventricular response Low voltage QRS Cannot rule out Anterior infarct, age undetermined Abnormal ECG
[2018-03-02] MEDS ORDERED: (Novolin R) Insulin Human Regular 100 units/ml vial SC SCH (20:37)
[2018-03-02] MEDS ORDERED: (Lantus) Insulin Glargine, Recombinant SC SCH (22:15)
--- NOTE | 2018-03-02 22:30 | CON ---
DATE: 03/02/2018 CARDIOLOGY CONSULTATION REASON FOR CONSULTATION: New-onset atrial fibrillation. HISTORY OF PRESENT ILLNESS: The patient is a 52-year-old morbidly obese female who has a history of DVT diagnosed about a year ago at [facility] and is on Xarelto. No known history of pulmonary embolism in the past and IVC filter was not recommended. The patient presented because of chest pain, palpitation and weakness and was found to be in rapid atrial fibrillation and required IV Cardizem. Earlier this morning, the patient converted to sinus rhythm and IV Cardizem was discontinued. The patient is currently comfortable. She denies any chest pain. SOCIAL HISTORY: Nonsmoker, nondrinker. She has six children, the youngest is 18 years old. PAST MEDICAL HISTORY: Seizure disorder, bronchial asthma and DVT. CURRENT MEDICATIONS: Dilantin 100 mg twice a day. The patient was on Cardizem infusion which was discontinued this morning, albuterol inhaler every 4 hours p.r.n., Lopressor 25 mg once a day, therapeutic subcutaneous Lovenox at 120 mg twice a day, prednisone 20 mg twice a day. PHYSICAL EXAMINATION: GENERAL: The patient is a morbidly obese female who weighs 346 pounds. VITAL SIGNS: Blood pressure 96/61, heart rate 63, temperature 97.8, and respirations 13. HEENT: Normocephalic. CHEST: Bilateral rhonchi. HEART: S1, S1 regular and distant. ABDOMEN: Soft. EXTREMITIES: 1+ pitting edema. LABORATORY DATA: Hemoglobin and hematocrit are 11.2 and 34.8, white count 11.4, platelet count 256,000. SMA-7: Sodium 133, potassium 4.5, chloride 96, CO2 25, glucose 403, BUN 80, BUN 8, creatinine 0.7. One set of troponin is negative. INR is 1.1. PTT 48. EKG on admission revealed atrial fibrillation at rate of 127 and poor R-wave progression. Chest CT angio, no large central or segmental pulmonary embolism. No focal consolidation and no pleural effusion. ASSESSMENT: 1. Paroxysmal atrial fibrillation. 2. Morbid obesity. 3. History of deep vein thrombosis. RECOMMENDATIONS : Continue current Dilantin and continue Lopressor 25 mg once a day. Resume Xarelto at 20 mg daily. Discontinue therapeutic subcutaneous Lovenox. Obtain venous Doppler of the lower extremities and TSH level. James Arvizu MD [facility] # [id number]
--- NOTE | 2018-03-03 04:56 | CON ---
DATE: 03/02/2018 ENDOCRINOLOGY CONSULT LOCATION: ICU Room 3. HISTORY OF PRESENT ILLNESS: This is a 52-year-old female with known history of type 2 insulin requiring diabetes with underlying morbid obesity, presenting here with precordial chest pain and palpitations and progressive shortness of breath and was evaluated to be in rapid atrial fibrillation and is being referred now for diabetic evaluation because of marked hyperglycemic accelerations as noted thereof. PAST MEDICAL HISTORY: As mentioned above, history of type 2 insulin requiring diabetes, currently on a premixed insulin regimen with Humulin 70/30 given as 18 units b.i.d., history of hypertension and dyslipidemia, history of super morbid obesity with also chronic bronchial asthma, and apparently, has been steroid dependent for sometime now. 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 History of diffuse osteoarthritis with knee arthralgias and lower back pain. History of seizure disorder, on Dilantin therapy as given. FAMILY HISTORY: Positive for diabetes and hypertension. SOCIAL HISTORY: The patient has a supportive family. No known substance use. REVIEW OF SYSTEMS: As mentioned above, admits to generalized body weakness with easy fatigability and tiredness and suboptimal energy level. Also admits to episodic bouts of dizziness and lightheadedness, worse on the day of admission. Admits to precordial chest pain with progressive shortness of breath, initially on exertion and then at rest with episodic palpitations as noted. Her oral intake has been variable with occasional dyspepsia and vague upper abdominal pains. Also admits to marked polyuria, nocturia, polydipsia. PHYSICAL EXAMINATION: GENERAL: This is a super morbidly obese female, in no apparent distress. VITAL SIGNS: Blood pressure of 150/90, pulse of 100 beats per minute and irregular, temperature 98, respirations 20. Height is 5 feet 3 inches, weight is 346 pounds. HEENT: Head normocephalic. Eyes anicteric with pink conjunctivae. Funduscopy not possible at this time. Ears, nose, and throat, otherwise, normal. NECK: Supple. Thyroid gland is normal size. No carotid bruits or cervical adenopathy. CARDIOPULMONARY: Some adynamic precordium. S1, S2 rapid and regular. LUNGS: Show scattered rhonchi. ABDOMEN: Obese, soft with positive bowel sounds. EXTREMITIES: No peripheral edema. Pulses are +2 bilaterally. LABORATORY DATA: Chemistries showed a BUN of 8, sodium 133, potassium 4.5, chloride 96, CO2 of 25, glucose 403, and creatinine 0.7. ASSESSMENT: This is a 52-year-old female with uncontrolled and decompensated type 2 insulin requiring diabetes with marked hyperglycemic accelerations, currently on oral steroid therapy which can also contribute to the increased insulin resistance and further impaired glucose tolerance thereof. She also has rapid atrial fibrillation and the possibility always of an underlying thyroid dysfunction has to be excluded at this time, pending the thyroid studies as ordered for tomorrow. PLAN OF MANAGEMENT: We will modify her current insulin regimen and discontinue the premixed insulin regimen for now, and switch her over to a more physiologic basal and bolus insulin drug combination to optimize metabolic control. We will start her with NovoLog given as 12 units subcu t.i.d. before meals to start tomorrow morning as ordered. We will modify the coverage scale to obviate hypoglycemia and detailed orders have been given with NovoLog insulin as ordered. We will add Lantus given as 24 units subcut at bedtime daily to start tonight. We will obtain serial chemistries and supplement accordingly as needed. We are awaiting the reports of the A1c levels as ordered. We will initiate diabetic education and dietary instructions to include healthiest food choices and weight loss efforts accordingly. Maral Camarena MD
[2018-03-03 06:29] LABS: HEMOGLOBIN 10.7 g/dL (11.0-16.0); MEAN CELL VOLUME 77.3 fL (81.0-99.0); MEAN CORPUSCULAR HGB CONC 32.4 g/dL (33.0-37.0); MEAN PLATELET VOLUME 10.4 fL (7.2-11.7); RBC 4.27 Mil/uL (3.80-5.20); RED CELL DISTRIBUTION WIDTH 16.8 % (11.5-14.5); WHITE BLOOD COUNT 10.5 K/uL (4.8-10.8)
[2018-03-03 06:45] LABS: ALBUMIN 3.5 g/dL (3.5-5.0); ALT/SGPT 26 U/L (9-52); AST/SGOT 14 U/L (14-36); BLOOD UREA NITROGEN 12 mg/dL (7-17); CALCIUM 8.8 mg/dl (8.6-10.4); GFR NON-AFRICAN AMERICAN > 60; HDL CHOLESTEROL 36 mg/dL (30-70)
[2018-03-03 06:53] LABS: LDL CHOLESTEROL 99 mg/dL (0-129)
[2018-03-03] MEDS: (Novolog) Insulin Aspart, Recombinant 100 u/ml 10 ml vial SC SCH ×6 (07:51→21:55)
[2018-03-03] MEDS: Tiotropium 18 mcg Cap For Inhalation IH SCH (07:55)
[2018-03-03] MEDS: Fluticasone-Vilanterol 100/25mcg Diskus INH SCH (07:56)
[2018-03-03] MEDS ORDERED: (Novolog) Insulin Aspart, Recombinant 100 u/ml 10 ml vial SC SCH (11:42)
[2018-03-03 13:14] VITALS: RESP 20
--- NOTE | 2018-03-03 14:00 | CP.PCM.PN ---
<Nazario Garcias - Last Filed: 03/03/18 13:57> Subjective - Date & Time of Evaluation Date of Evaluation: 03/03/18 Time of Evaluation: 14:01 - Subjective Subjective: PGY3 Note for Dr. López Patient seen and examined at bedside this AM; patient has no acute complaints other than "her sugar being very high" while she has 4 boxes of juice on her table half drunk; patient denies fevers/chills, HUNG, CP, SOB, abdominal pain, n/V/D dysuria/freq/urg or lower extremity pain/swelling. Objective - Vital Signs/Intake and Output Vital Signs (last 24 hours): Temp Pulse Resp BP Pulse Ox 98.1 F 70 20 129/77 97 03/03/18 12:40 03/03/18 12:40 03/03/18 12:40 03/03/18 12:40 03/03/18 09:55 Intake and Output: 03/03/18 03/03/18 06:59 18:59 Intake Total 360 250 Output Total 900 500 Balance -540 -250 - Medications Medications: Current Medications Acetaminophen (Tylenol 325mg Tab) 650 mg PO Q6 PRN PRN Reason: Pain, Mild (1-3) Albuterol/Ipratropium (Duoneb 3 Mg/0.5 Mg (3 Ml) Ud) 3 ml INH RQ4 PRN PRN Reason: Shortness of Breath Last Admin: 03/02/18 08:17 Dose: 3 ml Dextrose (Dextrose 50% Inj) 0 ml IV STAT PRN; Protocol PRN Reason: Hypoglycemia Protocol Dextrose (Glutose 15) 0 gm PO ONCE PRN; Protocol PRN Reason: Hypoglycemia Protocol Famotidine (Pepcid) 20 mg PO DAILY [facility] Last Admin: 03/03/18 11:03 Dose: 20 mg Fluticasone/Vilanterol (Breo Ellipta 100-25 Mcg Inh) 1 puff INH RQ24 [facility] Last Admin: 03/03/18 07:56 Dose: 1 puff Glucagon (Glucagen Diagnostic Kit) 0 mg IM STAT PRN; Protocol PRN Reason: Hypoglycemia Protocol Dextrose (Dextrose 5% In Water 1000 Ml) 1,000 mls @ 0 mls/hr IV .Q0M PRN; Protocol PRN Reason: Hypoglycemia Protocol Insulin Aspart (Novolog) 0 unit SC ACHS [facility] Last Admin: 03/03/18 11:41 Dose: Not Given Insulin Aspart (Novolog) 14 unit SC AC [facility] Insulin Glargine (Lantus) 30 unit SC HS [facility] Metoprolol Tartrate (Lopressor) 25 mg PO Q12 [facility] Last Admin: 03/03/18 11:03 Dose: 25 mg Phenytoin Sodium (Dilantin) 100 mg PO BID [facility] Last Admin: 03/03/18 11:03 Dose: 100 mg Prednisone (Prednisone Tab) 20 mg PO BID [facility] Last Admin: 03/03/18 11:03 Dose: 20 mg Rivaroxaban (Xarelto) 20 mg PO DAILY [facility] Last Admin: 03/03/18 11:03 Dose: 20 mg Tiotropium [place] (Spiriva) 18 mcg IH RQD [facility] Last Admin: 03/03/18 07:55 Dose: 18 mcg - Labs Labs: 03/03/18 06:19 03/03/18 06:19 PT 12.3 SECONDS (9.7-12.2) H 03/02/18 05:14 INR 1.1 03/02/18 05:14 APTT 48 SECONDS (21-34) H D 03/02/18 05:14 - Constitutional Appears: Well, Non-toxic (morbidly obese; BMI60) - Eye Exam Eye Exam: EOMI, Normal appearance, PERRL - ENT Exam ENT Exam: Mucous Membranes Moist - Neck Exam Neck Exam: Full ROM. absent: Lymphadenopathy - Respiratory Exam Respiratory Exam: Wheezes, NORMAL BREATHING PATTERN. absent: Clear to Ausculation Bilateral, Rales, Rhonchi - Cardiovascular Exam Cardiovascular Exam: REGULAR RHYTHM, +S1, +S2 - GI/Abdominal Exam GI & Abdominal Exam: Soft, Normal Bowel Sounds. absent: Tenderness (moribldy obese abdomen) - Extremities Exam Extremities Exam: Full ROM. absent: Calf Tenderness - Back Exam Back Exam: absent: CVA tenderness (L), CVA tenderness (R) - Neurological Exam Neurological Exam: Alert, Awake, Oriented x3 - Psychiatric Exam Psychiatric exam: Normal Affect Assessment and Plan - Assessment and Plan (Free Text) Assessment: 52yo F admitted for new onset A.Fibb and uncontrolled diabetes Atrial fibrillation New onset CHADS:1 HASBLED: 0 Echo pending Cardiology on board Patient is on therapuetic Lovenox Patient was on Xarelto as outpatient for b/l DVTS; will continue Metoprolol 25mg BID for rate control Uncontrolled DM -patient is sneaking food into the unit/drinking juice; was advised not to do so -Dr. Maral Camarena; endocrinology; thank you for your help -12 units before meals, 24 units long acting at night time with sliding scale coverage -will continue to trend/follow Morbid obesity Patient is aware of lifestyle modifications. She is aware she is needs to consider diet modification with her doctor and potentially considering weight loss surgery. I have encouraged her to take an active effort to make dietary changes and engage in exercise daily to improve quality life BMI is above 40, and co morbidities of asthma, and diabetes DVT (deep venous thrombosis);chronic patient has history of b/l DVTs Venous dopplers to check for current DVT Pending CT angio r/o PE==>unremarkable prelim Patient was previously on Xarelto as outpatient Risk factor: morbid obesity Asthma Patient is not in acute exacerbation Duonebs Spiriva Breo (Advair not available on hospital formulary) Patient has an outpatient pulm; does not come here. Predisone 20mg PO bid; started taper 03/03 -BID 20mg POx 2d; then 20mg daily x 2d; then 10mg daily x2d; then 5mg daily x2d Seizure disorder;chronic dilantin 100mg PO TID Prophylactic measure Xarelto 20mg daily Patient does not need GI prophylaxis as is eating patient should be out of bed to chair/encourage ambulation as tolerated Dispo: Patient will need to continue with xarelto 20mg for afibb and for DVT; will need repeat ultrasound of lower extremities to assess DVT c/w metoprolol 25mg BID for rate control encourage weightloss/diet/exercise. Spoke to patient about possibility for bypass surgery as well c/w insulin to control blood sugar Case discussed and seen with Dr. Maribel Garcias PGY3 <Dottie López V - Last Filed: 03/03/18 23:13> Objective - Vital Signs/Intake and Output Vital Signs (last 24 hours): Temp Pulse Resp BP Pulse Ox 97.9 F 66 20 132/75 98 03/03/18 15:24 03/03/18 15:24 03/03/18 15:24 03/03/18 21:55 03/03/18 15:24 Intake and Output: 11/17/18 11/18/18 18:59 06:59 Intake Total 250 Output Total 500 Balance -250 - Medications Medications: Current Medications Acetaminophen (Tylenol 325mg Tab) 650 mg PO Q6 PRN PRN Reason: Pain, Mild (1-3) Albuterol/Ipratropium (Duoneb 3 Mg/0.5 Mg (3 Ml) Ud) 3 ml INH RQ4 PRN PRN Reason: Shortness of Breath Last Admin: 03/03/18 22:18 Dose: 3 ml Dextrose (Dextrose 50% Inj) 0 ml IV STAT PRN; Protocol PRN Reason: Hypoglycemia Protocol Dextrose (Glutose 15) 0 gm PO ONCE PRN; Protocol PRN Reason: Hypoglycemia Protocol Famotidine (Pepcid) 20 mg PO DAILY [facility] Last Admin: 03/03/18 11:03 Dose: 20 mg Fluticasone/Vilanterol (Breo Ellipta 100-25 Mcg Inh) 1 puff INH RQ24 [facility] Last Admin: 03/03/18 07:56 Dose: 1 puff Glucagon (Glucagen Diagnostic Kit) 0 mg IM STAT PRN; Protocol PRN Reason: Hypoglycemia Protocol Dextrose (Dextrose 5% In Water 1000 Ml) 1,000 mls @ 0 mls/hr IV .Q0M PRN; Protocol PRN Reason: Hypoglycemia Protocol Insulin Aspart (Novolog) 0 unit SC ACHS [facility] Last Admin: 03/03/18 21:55 Dose: 3 u Insulin Aspart (Novolog) 14 unit SC AC [facility] Last Admin: 03/03/18 17:08 Dose: 14 u Insulin Glargine (Lantus) 30 unit SC HS [facility] Last Admin: 03/03/18 21:54 Dose: 30 u Metoprolol Tartrate (Lopressor) 25 mg PO Q12 [facility] Last Admin: 03/03/18 21:55 Dose: 25 mg Phenytoin Sodium (Dilantin) 100 mg PO BID [facility] Last Admin: 03/03/18 17:08 Dose: 100 mg Prednisone (Prednisone Tab) 20 mg PO DAILY [facility]; Taper Stop: 03/09/18 19:59 Last Admin: 03/03/18 17:07 Dose: 20 mg Rivaroxaban (Xarelto) 20 mg PO DAILY [facility] Last Admin: 03/03/18 11:03 Dose: 20 mg Tiotropium [place] (Spiriva) 18 mcg IH RQD [facility] Last Admin: 03/03/18 07:55 Dose: 18 mcg - Labs Labs: 03/03/18 06:19 03/03/18 06:19 PT 12.3 SECONDS (9.7-12.2) H 03/02/18 05:14 INR 1.1 03/02/18 05:14 APTT 48 SECONDS (21-34) H D 03/02/18 05:14 Assessment and Plan (1) Atrial fibrillation Status: Acute (2) Morbid obesity Status: Acute (3) DVT (deep venous thrombosis) Status: Chronic (4) Asthma Status: Acute (5) Seizure disorder Status: Chronic (6) Prophylactic measure Status: Acute Attending/Attestation - Attestation I have personally seen and examined this patient.: Yes I have fully participated in the care of the patient.: Yes I have reviewed all pertinent clinical information, including history, physical exam and plan: Yes Notes (Text): Patient seen, examined and case discussed with day-time resident. 52 year old Female PMHx morbid obesity, b/l dvts (on xarelto), hx of asthma, diabetes, seizure disorder came in for new onset atrial fibrillation. Patient transferred out from the ICU yesterday. Patient is rate controlled on Lopressor 25mg PO Q12H and on xarelto for anticoagulation. Reordered for phys ical/occupational therapy. I did advise patient that her insulin will eventually need to be tapered as her steroid gets tapered. Her predisone 40mg PO daily was started by her sewage plant operator as outpatient recently. Endocrinology has adjusted insulin for the patient and ordered for thyroid studies as welll. Assessment and Plan (1) Atrial fibrillation Assessment & Plan: * Cardiology (Dr. Arvizu) on consult-->help appreciated * New onset * CHADS:1 * HASBLED: 0 * Echo (03/02/18): very poor window. la, lv, ra, rv size appears normal. Normal lv, and rv systolic function with lvef: 60-65%, mitral is probably normal. no pericardial effusion * Xarelto 20mg PO daily * pending prelim read of venous lower extremity dopplers Status: Acute (2) Morbid obesity Assessment & Plan: * Patient is aware she needs to make lifestyle modifications. * She is aware she is needs to consider diet modification with her doctor and potentially considering weight loss surgery. * I have encouraged her to take an active effort to make dietary changes and engage in exercise daily to improve quality life * BMI is above 40, and co morbidities of asthma, and diabetes * patient was seen by home fire alarm installer today. * I did indicate to her steroids which were recently increased by her allergy doctor will also be contributing to her obesity. Status: Acute (3) History of DVT (deep venous thrombosis) Assessment & Plan: * patient has history of b/l DVTs * Venous dopplers to check for current DVT * CT Angio (03/02/18): no large central or segmental pulmonary embolus identified. Cholecystectomy clips. * Patient was previously on Xarelto as outpatient * Risk factor: morbid obesity Status: Chronic (4) Asthma Assessment & Plan: * Patient is not in acute exacerbation * Duonebs * Spiriva * Breo (Advair not available on hospital formulary) * Patient has an outpatient pulm; does not come here. * Predisone 20mg PO bid * ICU Resident spoke with pharmacy confirm this her current dose * Patient noted recent increased by her allergy/immunology doctor, who does not come here and office is closed. * Will need to be taper slowly; increase in steroids likely contributing to her uncontrolled sugars Status: Acute (5) Diabetes, uncontrolled Assessment & Plan: * Endocrinology (Dr. Camarena) on board-->help appreciated * hgba1c: 8.4 * Patient as outpatient: novolog 70/30 18 units [id number] managed by her PMD prior to this hospitalization. * Patient has recent increase in prednisone by her allergy/access control officer doctor * Novolog 14 unit subqAC * Novolog sub AC and HS * Lantus 30 units subqHS (6) Seizure disorder Assessment & Plan: * dilantin 100mg PO BID Status: Chronic (7) Prophylactic measure Assessment & Plan: * Xarelto 20mg PO daily * Pepcid 20mg PO daily * PT/OT eval Status: Acute Disposition: optimize sugar control. PT/OT eval. f/u prelim venous doppler. Patient will need insulin adjusted and eventually taper off high dose steroid. Her steroid was increased by her business office manager prior to admission.
--- NOTE | 2018-03-03 15:54 | PN ---
DATE: 03/03/2018 ENDOCRINOLOGY FOLLOWUP NOTE LOCATION: In room 3 ICU. SUBJECTIVE: This is a 52-year-old female with recent uncontrolled type 2 insulin-requiring diabetes, with super morbid obesity and has been on jail high dose steroid medications for unclear reasons and is now being followed closely for metabolic management for recent hyperglycemic accelerations as noted thereof. Her glucose levels overnight have ranged from 273 to 388 mg/dL. It was 358 at bedtime last night. LABORATORY DATA: Her hemoglobin A1c is also elevated at 8.4%. Her current chemistry showed a BUN of 12, sodium 135, potassium 4.5, chloride 97, CO2 of 28, glucose 447, and creatinine 0.6. Her thyroid studies showed a free T4 of 1.19 with the TSH of 0.22. ASSESSMENT: This is a 52-year-old female with uncontrolled and decompensated type 2 insulin-requiring diabetes with suboptimal metabolic control, presenting here with marked hyperglycemic accelerations and supervening rapid atrial fibrillation with abnormal thyroid studies as noted today. She remains clinically euthyroid and biochemically has evidence of a normal free T4, but a suppressed thyroid stimulating hormone level, which could be either related to the so called acute sick euthyroid syndrome with transient suppression of the thyroid stimulating hormone from the intercurrent steroid therapy versus a subclinical hyperthyroidism, especially with concomitant presentation of the rapid atrial fibrillation. PLAN PF MANAGEMENT: We will obtain a comprehensive thyroid hormonal profile to include a total T4 or tyrosine level, which is more indicative of the degree of hyperthyroxinemia if indeed present. We will obtain thyroid stimulating immunoglobulin and thyroid peroxidase antibody, which will confirm and presence of underlying thyroid autoimmunity. We will modify her current insulin regimen and titrate her Lantus to 30 units subcu at bedtime daily to start tonight. We will also modify her Novolog given as prandial insulin to 14 units subcu t.i.d before meals to start today at lunch time. We will also continue the low dose correction scale using NovoLog insulin as given. We will hold of thyroid pharmacotherapy pending the completion of the aforementioned repeat thyroid studies for a confirmation. We will follow. Maral Camarena MD [facility] # [id number]
--- NOTE | 2018-03-03 16:08 | PN ---
DATE: 03/03/2018 SUBJECTIVE: The patient complains of cough. No retrosternal chest pain and no palpitation. PHYSICAL EXAMINATION: VITAL SIGNS: Blood pressure 129/77, heart rate 70, temperature 98.1, respirations 20. HEENT: [place] conjunctivae. CHEST: Bilateral rhonchi. HEART: S1 and S2 regular. EXTREMITIES: Trace leg edema. LABORATORY DATA: Today's SMA-7 is within normal limit except for glucose of 447, chloride 97, and BUN of 0.6. TSH level 0.22. Hemoglobin and hematocrit 10.7 and 33. White count and plate count are within normal limit. ASSESSMENT: 1. Paroxysmal atrial fibrillation. 2. Morbid obesity. 3. History of deep venous thrombosis. 4. Hyperthyroidism. 5. Uncontrolled diabetes mellitus. 6. Seizure disorder. RECOMMENDATIONS: Continue current Dilantin 100 mg twice a day, Lopressor 25 mg twice a day, magnesium 120 mg once a day, Xarelto 20 mg once a day. Official report of the extremities still pending. James Arvizu MD
[2018-03-03 16:26] VITALS: TEMP 97.9
[2018-03-03] MEDS ORDERED: (Lantus) Insulin Glargine, Recombinant SC SCH (22:15)
[2018-03-03] MEDS: Albuterol-Ipratrop 3 mg / 0.5 (3 ml) UD INH PRN (22:18)
[2018-03-04 00:44] VITALS: BP 137/87; PULSE 80; O2SAT 95
--- NOTE | 2018-03-04 15:43 | CP.PCM.DIS ---
Provider - Provider Date of Admission: 03/01/18 16:04 Attending physician: Dottie López DO Time Spent in preparation of Discharge (in minutes): 45 Hospital Course - Lab Results Lab Results: Micro Results 03/01/18 17:46 Naris MRSA Culture (Admit) - Final MRSA NOT DETECTED Most Recent Lab Values WBC 10.5 K/uL (4.8-10.8) 03/03/18 06:19 RBC 4.27 Mil/uL (3.80-5.20) 03/03/18 06:19 Hgb 10.7 g/dL (11.0-16.0) L 03/03/18 06:19 Hct 33.0 % (34.0-47.0) L 03/03/18 06:19 MCV 77.3 fL (81.0-99.0) L 03/03/18 06:19 MCH 25.0 pg (27.0-31.0) L 03/03/18 06:19 MCHC 32.4 g/dL (33.0-37.0) L 03/03/18 06:19 RDW 16.8 % (11.5-14.5) H 03/03/18 06:19 Plt Count 230 K/uL (130-400) 03/03/18 06:19 MPV 10.4 fL (7.2-11.7) 03/03/18 06:19 Neut % (Auto) 86.2 % (50.0-75.0) H 03/02/18 05:14 Lymph % (Auto) 11.5 % (20.0-40.0) L 03/02/18 05:14 [place] % (Auto) 1.4 % (0.0-10.0) 03/02/18 05:14 Eos % (Auto) 0.2 % (0.0-4.0) 03/02/18 05:14 Baso % (Auto) 0.7 % (0.0-2.0) 03/02/18 05:14 Neut # (Auto) 9.8 K/uL (1.8-7.0) H 03/02/18 05:14 Lymph # (Auto) 1.3 K/uL (1.0-4.3) 03/02/18 05:14 [place] # (Auto) 0.2 K/uL (0.0-0.8) 03/02/18 05:14 Eos # (Auto) 0.0 K/uL (0.0-0.7) 03/02/18 05:14 Baso # (Auto) 0.1 K/uL (0.0-0.2) 03/02/18 05:14 PT 12.3 SECONDS (9.7-12.2) H 03/02/18 05:14 INR 1.1 03/02/18 05:14 APTT 48 SECONDS (21-34) H D 03/02/18 05:14 Sodium 135 mmol/L (132-148) 03/03/18 06:19 Potassium 4.5 mmol/L (3.6-5.2) 03/03/18 06:19 Chloride 97 mmol/L (98-107) L 03/03/18 06:19 Carbon Dioxide 28 mmol/L (22-30) 03/03/18 06:19 Anion Gap 15 (10-20) 03/03/18 06:19 BUN 12 mg/dL (7-17) 03/03/18 06:19 Creatinine 0.6 mg/dL (0.7-1.2) L 03/03/18 06:19 Est GFR ( Amer) > 60 03/03/18 06:19 Est GFR (Non-Af Amer) > 60 03/03/18 06:19 POC Glucose (mg/dL) 338 mg/dL (65-110) H 03/03/18 21:12 Random Glucose 447 mg/dL (65-105) H* 03/03/18 06:19 Hemoglobin A1c 8.4 % (4.2-6.5) H D 03/03/18 06:19 Calcium 8.8 mg/dl (8.6-10.4) 03/03/18 06:19 Phosphorus 2.6 mg/dL (2.5-4.5) 03/02/18 05:14 Magnesium 1.9 mg/dL (1.6-2.3) 03/02/18 05:14 Total Bilirubin 0.5 mg/dL (0.2-1.3) 03/03/18 06:19 AST 14 U/L (14-36) D 03/03/18 06:19 ALT 26 U/L (9-52) 03/03/18 06:19 Alkaline Phosphatase 88 U/L (38-126) 03/03/18 06:19 Total Creatine Kinase 62 U/L (30-135) 03/01/18 12:56 CK-MB (Mass) 0.30 ng/mL (0.0-3.38) 03/01/18 12:56 Troponin I < 0.0120 ng/mL (0.00-0.120) 03/01/18 12:56 Total Protein 6.9 g/dL (6.3-8.3) 03/03/18 06:19 Albumin 3.5 g/dL (3.5-5.0) 03/03/18 06:19 Globulin 3.4 gm/dL (2.2-3.9) 03/03/18 06:19 Albumin/Globulin Ratio 1.0 (1.0-2.1) 03/03/18 06:19 Triglycerides 101 mg/dL (0-149) 03/03/18 06:19 Cholesterol 146 mg/dL (0-199) 03/03/18 06:19 LDL Cholesterol Direct 99 mg/dL (0-129) 03/03/18 06:19 HDL Cholesterol 36 mg/dL (30-70) 03/03/18 06:19 Free T4 1.19 ng/dL (0.78-2.19) 03/03/18 06:19 TSH 3rd Generation 0.22 mIU/L (0.46-4.68) L 03/03/18 06:19 Urine HCG, Qual Negative (NEGATIVE) 03/01/18 15:24 Phenytoin < 3.0 ug/mL (10-20) L 03/01/18 13:38 - Hospital Course Hospital Course: on admission: patient is a 52-year-old female with a 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 She was found to be in a fib RVR. Patient was seen last week for chest pain and given a prescription for nitroglycerin. Patient denies history of arrhythmias. Patient is also complaining of right lower extremity pain. She states she has not been able to walk for the past week. in discharge: patient admitted on March 01 and left against medical advice on March 04. She was diagnosed with a fib and was treated actively. patient left against medical advice. On the morning of March 04, 2018, she left because she thought she wasn't getting the treatment she needed after moving rooms. night float explained risks of leaving AMA including cardiac/respiratory arrest and even . she was discharged with her home medications prescriptions handwritten. she was told to follow up with her primary care doctor and police lieutenant patrol. above is a summary of hospital events. please see complete medical record for further details. patient instructions: -medications reconciled and given to her prescriptions directions were explain verbally. -advised to follow up with primary care dr and police lieutenant patrol -advised to go to the emergency room with any chest pain, shortness of breath, palpitations pt verbally agreed to the above instructions. - Date & Time of H&P Date of H&P: 03/04/18 Time of H&P: 15:43 Discharge Exam - Head Exam Head Exam: NORMAL INSPECTION - Eye Exam Eye Exam: EOMI, Normal appearance - Neck Exam Neck exam: Normal Inspection - Respiratory Exam Respiratory Exam: Clear to PA & Lateral, NORMAL BREATHING PATTERN - Cardiovascular Exam Cardiovascular Exam: REGULAR RHYTHM - GI/Abdominal Exam GI & Abdominal Exam: Normal Bowel Sounds, Unremarkable - Neurological Exam Neurological exam: Alert, Normal Gait, Oriented x3 - Psychiatric Exam Psychiatric exam: Agitated - Skin Skin Exam: Dry, Intact, Normal Color, Warm Discharge Plan - Follow Up Plan Condition: GOOD Disposition: AGAINST MEDICAL ADVICE
--- NOTE | 2018-03-05 12:26 | CARD ---
APPROVED REPORT Date of service: 03/01/2018 EKG Measurement Heart [id number] <Conclusion> Atrial fibrillation with rapid ventricular response Nonspecific ST abnormality Abnormal ECG
--- NOTE | 2018-03-05 13:29 | VASCLAB ---
Date of service: 03/02/2018 PROCEDURE: Lower Extremity Venous Duplex Exam. HISTORY: hx of dvt, worsening leg edema PRIORS: None. TECHNIQUE: Bilateral common femoral, femoral, popliteal and posterior tibial, peroneal and great saphenous veins were evaluated. Flow was assessed with color Doppler, compressibility, assessment of phasic flow and augmentation response. Report prepared by Chuy Mendes, BS, RVT FINDINGS: RIGHT: 1. Common Femoral Vein: 1.1. Compressibility - Fully compressible: Thrombus - None : Flow - Phasic: Augmentation -Normal: Reflux - None. 2. Femoral Vein: 2.1. Compressibility - Fully compressible: Thrombus - None : Flow - Phasic: Augmentation -Normal: Reflux - None. 3. Popliteal Vein: 3.1. Compressibility - Fully compressible: Thrombus - None : Flow - Phasic: Augmentation -Normal: Reflux - None. 4. Posterior Tibial Vein: 4.1. Compressibility - Fully compressible: Thrombus - None: Flow - Phasic: Augmentation -Normal: Reflux - None. 5. Peroneal Vein: 5.1. Compressibility - Fully compressible: Thrombus - None: Flow - Phasic: Augmentation -Normal: Reflux - None. 6. Great Saphenous Vein: 6.1. Compressibility - Fully compressible: Thrombus - None: Flow - Phasic: Augmentation - Normal: Reflux - None. LEFT: 1. Common Femoral Vein: 1.1. Compressibility - Fully compressible: Thrombus - None: Flow - Phasic: Augmentation -Normal: Reflux - None. 2. Femoral Vein: 2.1. Compressibility - Fully compressible: Thrombus - None: Flow - Phasic: Augmentation -Normal: Reflux - None. 3. Popliteal Vein: 3.1. Compressibility - Fully compressible: Thrombus - None : Flow - Phasic: Augmentation -Normal: Reflux - None. 4. Posterior Tibial Vein: 4.1. Compressibility - Fully compressible: Thrombus - None: Flow - Phasic: Augmentation -Normal: Reflux - None. 5. Peroneal Vein: 5.1. Compressibility - Fully compressible: Thrombus - None: Flow - Phasic: Augmentation -Normal: Reflux - None. 6. Great Saphenous Vein: 6.1. Compressibility - Fully compressible: Thrombus - None: Flow - Phasic: Augmentation - Normal: Reflux - Yes. OTHER FINDINGS: Right: None significant. Left: None significant. IMPRESSION: Right: No evidence of deep or superficial vein thrombosis of the right lower extremity. Normal valve function noted of the right side. Left: No evidence of deep or superficial vein thrombosis of the left lower extremity. Valvular incompetence of the left greater saphenous veins.
== END 2018-03-04 01:39 | disposition left against medical advice (07) | DRG 201 ==
LOC: C.ER 12:12 → C.9I 16:04 → C.6T 03-03 12:20
PROVIDERS: ADMIT Hospitalist; ATTEND Hospitalist
PROC: 05H633Z Insertion of Infusion Device into Left Subclavian Vein, Percutaneous Approach (ICD-10-PCS; principal; 2018-03-02)
DX: I48.0 Paroxysmal atrial fibrillation (principal); E11.65 Type 2 diabetes mellitus with hyperglycemia; I10 Essential (primary) hypertension; Z68.44 Body mass index [BMI] 60.0-69.9, adult; E66.01 Morbid (severe) obesity due to excess calories; G40.909 Epilepsy, unspecified, not intractable, without status epilepticus; E05.90 Thyrotoxicosis, unspecified without thyrotoxic crisis or storm; E78.5 Hyperlipidemia, unspecified; Z79.4 Long term (current) use of insulin; J45.909 Unspecified asthma, uncomplicated; Z86.718 Personal history of other venous thrombosis and embolism; Z79.01 Long term (current) use of anticoagulants

== ENCOUNTER 2018-05-21 02:44 | Inpatient (IN) | payer MEDICAID ==
[2018-05-21 02:44] VITALS: PULSE 155; BMI 56.7
[2018-05-21] MEDS ORDERED: Albuterol-Ipratrop 3 mg / 0.5 (3 ml) UD INH STA ×2 (03:03→03:04)
[2018-05-21] MEDS ORDERED: Sodium Chloride 0.9% 1,000 ML IV ONE ×2 (03:15→04:51)
[2018-05-21] MEDS ORDERED: Albuterol-Ipratrop 3 mg / 0.5 (3 ml) UD ONE (03:28)
[2018-05-21] MEDS ORDERED: Sodium Chloride 0.9% 1,000 ML ONE (03:29)
[2018-05-21] MEDS ORDERED: Magnesium Sulfate 1 gm in D5W 2 GM/200 ML BAG IVPB ONE (03:29)
[2018-05-21 03:43] LABS: ALB/GLOB RATIO 1.2 (1.0-2.1); ALBUMIN 4.2 g/dL (3.5-5.0); ALT/SGPT 11 U/L (9-52); AST/SGOT 37 U/L (14-36); BLOOD UREA NITROGEN 6 mg/dL (7-17); CALCIUM 8.5 mg/dl (8.6-10.4); GFR NON-AFRICAN AMERICAN > 60
[2018-05-21] MEDS: Magnesium Sulfate 1 gm in D5W 1 GM/100 ML BAG IVPB SCH ×2 (03:45→04:12)
[2018-05-21 03:54] LABS: B-TYPE NATRIURETIC PEPTIDE 580 pg/mL (0-900)
[2018-05-21 03:58] LABS: BASO % 0.3 % (0.0-2.0); EOS % 0.1 % (0.0-4.0); HEMOGLOBIN 11.7 g/dL (11.0-16.0); LYMPH # 0.9 K/uL (1.0-4.3); LYMPH % 8.3 % (20.0-40.0); MEAN CORPUSCULAR HEMOGLOBIN 25.8 pg (27.0-31.0); MEAN CORPUSCULAR HGB CONC 32.6 g/dL (33.0-37.0); MEAN PLATELET VOLUME 9.5 fL (7.2-11.7); MONO # 0.1 K/uL (0.0-0.8); NEUT # 9.8 K/uL (1.8-7.0); NEUT % 90.3 % (50.0-75.0); RBC 4.55 Mil/uL (3.80-5.20); RED CELL DISTRIBUTION WIDTH 16.7 % (11.5-14.5); WHITE BLOOD COUNT 10.9 K/uL (4.8-10.8)
[2018-05-21 04:03] LABS: PLATELET COUNT 333 K/uL (130-400)
[2018-05-21 04:07] LABS: INR 1.2; PROTHROMBIN TIME 13.3 SECONDS (9.7-12.2)
[2018-05-21] MEDS ORDERED: Metoprolol 1 mg/ml Inj IVP ONE ×4 (04:18→06:46)
[2018-05-21] MEDS ORDERED: Metoprolol 1 mg/ml Inj ONE (04:23)
--- NOTE | 2018-05-21 04:35 | CP.PCM.CON ---
History of Present Illness - History of Present Illness History of Present Illness: 52 y/o female with a history of recurrent DVTs on Xarelto, morbid obesity, and T2DM who presented to [facility] with c/o difficulty brething. Carol notes she was lying in bed and then suddenly had SOB. Patient was noted to have SVT (HR neat 160s). Patient awake, alert, c/o difficulty breathing. denies any chest pain, denies any headaahces, denie any abdomineal pain, (+)Lower leg pain PMH: Recurrent b/l LE DVTs- denies h/o PEs, on Xarelto >1 year T2DM Obesity (BMI 56) Asthma Seizure disorder Cholecystectomy Meds: ayden does not remember her medications Review of Systems - Constitutional Constitutional: As Per HPI - Cardiovascular Cardiovascular: Rapid Heart Rate - Respiratory Respiratory: Dyspnea - Gastrointestinal Gastrointestinal: absent: Abdominal Pain, Belching, Bloating Past Patient History - Infectious Disease Hx of Infectious Diseases: None - Tetanus Immunizations Tetanus Immunization: Unknown - Past Medical History & Family History Past Medical History?: Yes - Past Social History Smoking Status: Never Smoked - CARDIAC Hx Cardiac Disorders: No - PULMONARY Hx Asthma: Yes - NEUROLOGICAL Hx Seizures: Yes - HEENT Hx HEENT Problems: No - RENAL Hx Chronic Kidney Disease: No - ENDOCRINE/METABOLIC Hx Diabetes Mellitus Type 2: Yes - HEMATOLOGICAL/ONCOLOGICAL Hx Blood Disorders: No - INTEGUMENTARY Hx Dermatological Problems: No - MUSCULOSKELETAL/RHEUMATOLOGICAL Hx Musculoskeletal Disorders: No - GASTROINTESTINAL Hx Gastrointestinal Disorders: No - GENITOURINARY/GYNECOLOGICAL Hx Genitourinary Disorders: No - PSYCHIATRIC Hx Psychophysiologic Disorder: No Hx Substance Use: No - SURGICAL HISTORY Hx Cholecystectomy: Yes - ANESTHESIA Hx Anesthesia: Yes Hx Anesthesia Reactions: No Hx Malignant Hyperthermia: No Meds Home Medications: Home Medication List Medication Instructions Recorded Confirmed Type Atorvastatin [Lipitor] 10 mg PO DIN #30 tab 05/24/18 Rx Insulin Human (NPH)/Regular 18 units SC BID 30 Days unit 05/24/18 Rx [Novolin 70/30 (70/30 units/ml) 10 ml] Lisinopril 2.5 mg PO DAILY #30 tablet 05/24/18 Rx Montelukast [Singulair] 10 mg PO HS #30 tab 05/24/18 Rx Pen Needle, Diabetic [Insulin Pen 1 each MC BID #100 dis.needle 05/24/18 Rx Needle] Rivaroxaban [Xarelto] 15 mg PO BID #60 tab 05/24/18 Rx Tiotropium [place] Inhaler 1 inhaler INH DAILY #1 inhaler 05/24/18 Rx [Spiriva Inhalation Handihaler Device] Tiotropium [Spiriva] 18 mcg INH RQ24 #30 cap 05/24/18 Rx Verapamil [Calan SR Tab] 240 mg PO DAILY #30 tab 05/24/18 Rx levETIRAcetam [Keppra] 750 mg PO DAILY #30 tab 05/24/18 Rx Allergies/Adverse Reactions: Allergies Allergy/AdvReac Type Severity Reaction Status Date / Time No Known Allergies Allergy Verified 05/21/18 02:50 - Medications Medications: Current Medications Potassium Chloride (Potassium Chloride 10 Meq/100 Ml) 10 meq in 100 mls @ 100 mls/hr IVPB Q1H SIMIN Stop: 05/21/18 08:14 Metoprolol Tartrate (Lopressor) 5 mg IVP ONCE ONE Stop: 05/21/18 04:29 Phenytoin (Dilantin) 100 mg PO BID SIMIN Physical Exam - Head Exam Head Exam: ATRAUMATIC, NORMAL INSPECTION, NORMOCEPHALIC - Eye Exam Eye Exam: EOMI - ENT Exam ENT Exam: Normal Exam - Respiratory Exam Respiratory Exam: Clear to Auscultation Bilateral, Respiratory Distress, NORMAL BREATHING PATTERN. absent: Rales, Rhonchi, Wheezes, Stridor - Cardiovascular Exam Cardiovascular Exam: Tachycardia, +S1, +S2, Systolic Murmur - GI/Abdominal Exam GI & Abdominal Exam: Normal Bowel Sounds, Soft - Neurological Exam Neurological exam: Alert, CN II-XII Intact, Oriented x3 - Skin Skin Exam: Dry, Normal Color, Warm Results - Vital Signs Recent Vital Signs: Last Vital Signs Temp 98.7 F 05/21/18 02:45 Pulse 114 H 05/21/18 02:45 Resp 22 05/21/18 03:03 BP 119/59 L 05/21/18 04:20 Pulse Ox 98 05/21/18 03:03 - Labs Result Diagrams: 05/24/18 08:04 05/24/18 08:04 Labs: Laboratory Results - last 24 hr 05/21/18 05/21/18 05/21/18 02:55 03:00 03:00 WBC RBC Hgb Hct MCV MCH MCHC RDW Plt Count MPV Neut % (Auto) Lymph % (Auto) [place] % (Auto) Eos % (Auto) Baso % (Auto) Neut # (Auto) Lymph # (Auto) [place] # (Auto) Eos # (Auto) Baso # (Auto) PT 13.3 H INR 1.2 APTT 37 H Sodium Potassium Chloride Carbon Dioxide Anion Gap BUN Creatinine Est GFR ( Amer) Est GFR (Non-Af Amer) POC Glucose (mg/dL) 276 H Random Glucose Calcium Total Bilirubin AST ALT Alkaline Phosphatase Troponin I NT-Pro-B Natriuret Pep Total Protein Albumin Globulin Albumin/Globulin Ratio Influenza Typ A,B (EIA) Negative for flu a/b 05/21/18 05/21/18 03:00 03:25 WBC 10.9 H RBC 4.55 Hgb 11.7 Hct 36.0 MCV 79.0 L MCH 25.8 L MCHC 32.6 L RDW 16.7 H Plt Count 333 D MPV 9.5 Neut % (Auto) 90.3 H Lymph % (Auto) 8.3 L [place] % (Auto) 1.0 Eos % (Auto) 0.1 Baso % (Auto) 0.3 Neut # (Auto) 9.8 H Lymph # (Auto) 0.9 L [place] # (Auto) 0.1 Eos # (Auto) 0.0 Baso # (Auto) 0.0 PT INR APTT Sodium 135 Potassium 3.5 L Chloride 98 Carbon Dioxide 22 Anion Gap 19 BUN 6 L Creatinine 0.6 L Est GFR ( Amer) > 60 Est GFR (Non-Af Amer) > 60 POC Glucose (mg/dL) Random Glucose 307 H D Calcium 8.5 L Total Bilirubin 1.1 AST 37 H D ALT 11 Alkaline Phosphatase 121 Troponin I < 0.0120 NT-Pro-B Natriuret Pep 580 Total Protein 7.8 Albumin 4.2 Globulin 3.6 Albumin/Globulin Ratio 1.2 Influenza Typ A,B (EIA) Assessment & Plan - Assessment and Plan (Free Text) Assessment: -SVT/A-fib: suspect underlying etiology, check CT angio, r/o PE, will start oral xarelta, IV loressor and verapamil pushed, will start oral verapamil, -check EKG, trop, echo and lipids -h/o DM: check HBA1c, will continue long acting and short acting premeals -at risk of CAD: will benfit from asa, statin and cardiology eval -h/o DVT: will benefit from NOAC -continue all other home medications (dilantin severe interaction with xeralto, will avoid dilantin and switch to keppra) -seizures; start keppra, check dilantin level, neurology eval -patient advised health diet and and exercise. -continue DVT/PUD ppx: NOAC , pepcid Patient will benfit from ICU level care until SVT resolves. - Date & Time Date: 05/21/18 Time: 04:41
[2018-05-21] MEDS ORDERED: Iodixanol 320 MG/ML 100 ML BOTTLE IV ONE (04:46)
--- NOTE | 2018-05-21 04:51 | CP.PCM.HP ---
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 Denies fever, chills, chest pain, palpitations, abdominal pain, n/v/d, hematochezia, melena, recent travel. While in the ED pt was noted to be in Afib with RVR (HR 200s). In the ED, pt received Cardizem 20 mg IVP x2, Magnesium 2g IVPB, Metoprolol 5 mg IVP x2, Verapamil 2.5 mg IVP x2 PMD: none PMH:Recurrent b/l LE DVTs- denies h/o PEs, on Xarelto >1 year, T2DM, morbid Obes ity (BMI 56), Asthma, Seizure disorder PSH: Cholecystectomy Meds:xarelto 20 mg daily, spiriva with handihaler 18 mcg - one puff daily, breo ellipta 100/25 - one puff daily, phenytoin 100 mg PO BID, lopressor 25 mg PO BID - take one pill twice daily, lantus 30U SC HS - 30 units before bedtime, novolog 14U SC AC All: NKDA FH: CVAs SH: 7 children. On disability. Drinks alcohol occasionally. Denies tobacco and illicit drug use Present on Admission - Present on Admission Any Indicators Present on Admission: Yes History of DVT/PE: Yes Review of Systems - Review of Systems All systems: reviewed and no additional remarkable complaints except (see HPI) Past Patient History - Infectious Disease Hx of Infectious Diseases: None - Tetanus Immunizations Tetanus Immunization: Unknown - Past Medical History & Family History Past Medical History?: Yes - Past Social History Smoking Status: Never Smoked - CARDIAC Hx Cardiac Disorders: No - PULMONARY Hx Asthma: Yes - NEUROLOGICAL Hx Seizures: Yes - HEENT Hx HEENT Problems: No - RENAL Hx Chronic Kidney Disease: No - ENDOCRINE/METABOLIC Hx Diabetes Mellitus Type 2: Yes - HEMATOLOGICAL/ONCOLOGICAL Hx Blood Disorders: No - INTEGUMENTARY Hx Dermatological Problems: No - MUSCULOSKELETAL/RHEUMATOLOGICAL Hx Musculoskeletal Disorders: No - GASTROINTESTINAL Hx Gastrointestinal Disorders: No - GENITOURINARY/GYNECOLOGICAL Hx Genitourinary Disorders: No - PSYCHIATRIC Hx Psychophysiologic Disorder: No Hx Substance Use: No - SURGICAL HISTORY Hx Cholecystectomy: Yes - ANESTHESIA Hx Anesthesia: Yes Hx Anesthesia Reactions: No Hx Malignant Hyperthermia: No Meds Allergies/Adverse Reactions: Allergies Allergy/AdvReac Type Severity Reaction Status Date / Time No Known Allergies Allergy Verified 05/21/18 02:50 Physical Exam - Constitutional Appears: Non-toxic, No Acute Distress - Head Exam Head Exam: ATRAUMATIC, NORMAL INSPECTION - Eye Exam Eye Exam: EOMI, Normal appearance - ENT Exam ENT Exam: Mucous Membranes Moist - Neck Exam Neck exam: Positive for: Normal Inspection - Respiratory Exam Respiratory Exam: Wheezes. absent: Accessory Muscle Use, Rales, Rhonchi, Respiratory Distress Additional comments: on BPAP - Cardiovascular Exam Cardiovascular Exam: Tachycardia, +S1, +S2 - GI/Abdominal Exam GI & Abdominal Exam: Normal Bowel Sounds, Soft (morbidly obese). absent: Tend erness - Extremities Exam Extremities exam: Positive for: calf tenderness (bilaterally, with swelling bilaterally), pedal pulses present - Back Exam Back exam: NORMAL INSPECTION - Neurological Exam Neurological exam: Alert, Oriented x3 - Psychiatric Exam Psychiatric exam: Normal Affect, Normal Mood - Skin Skin Exam: Dry, Normal Color, Warm Results - Vital Signs Recent Vital Signs: Last Vital Signs Temp 98.7 F 05/21/18 02:45 Pulse 114 H 05/21/18 02:45 Resp 22 05/21/18 03:03 BP 115/55 L 05/21/18 04:29 Pulse Ox 98 05/21/18 03:03 - Labs Result Diagrams: 05/21/18 03:00 05/21/18 03:25 Labs: Laboratory Results - last 24 hr 05/21/18 05/21/18 05/21/18 02:55 03:00 03:00 WBC RBC Hgb Hct MCV MCH MCHC RDW Plt Count MPV Neut % (Auto) Lymph % (Auto) [place] % (Auto) Eos % (Auto) Baso % (Auto) Neut # (Auto) Lymph # (Auto) [place] # (Auto) Eos # (Auto) Baso # (Auto) PT 13.3 H INR 1.2 APTT 37 H Sodium Potassium Chloride Carbon Dioxide Anion Gap BUN Creatinine Est GFR ( Amer) Est GFR (Non-Af Amer) POC Glucose (mg/dL) 276 H Random Glucose Calcium Total Bilirubin AST ALT Alkaline Phosphatase Troponin I NT-Pro-B Natriuret Pep Total Protein Albumin Globulin Albumin/Globulin Ratio Influenza Typ A,B (EIA) Negative for flu a/b 05/21/18 05/21/18 03:00 03:25 WBC 10.9 H RBC 4.55 Hgb 11.7 Hct 36.0 MCV 79.0 L MCH 25.8 L MCHC 32.6 L RDW 16.7 H Plt Count 333 D MPV 9.5 Neut % (Auto) 90.3 H Lymph % (Auto) 8.3 L [place] % (Auto) 1.0 Eos % (Auto) 0.1 Baso % (Auto) 0.3 Neut # (Auto) 9.8 H Lymph # (Auto) 0.9 L [place] # (Auto) 0.1 Eos # (Auto) 0.0 Baso # (Auto) 0.0 PT INR APTT Sodium 135 Potassium 3.5 L Chloride 98 Carbon Dioxide 22 Anion Gap 19 BUN 6 L Creatinine 0.6 L Est GFR ( Amer) > 60 Est GFR (Non-Af Amer) > 60 POC Glucose (mg/dL) Random Glucose 307 H D Calcium 8.5 L Total Bilirubin 1.1 AST 37 H D ALT 11 Alkaline Phosphatase 121 Troponin I < 0.0120 NT-Pro-B Natriuret Pep 580 Total Protein 7.8 Albumin 4.2 Globulin 3.6 Albumin/Globulin Ratio 1.2 Influenza Typ A,B (EIA) Assessment & Plan - Assessment and Plan (Free Text) Assessment: Patient is a 52 yo female with PMH of recurrent DVTs on xarelto, atrial fibrillation, IDDM2, seizure disorder, Asthma, morbid obesity who presents with abrupt sob while laying down earlier today. Noted to be in afib with RVR in the ED. Plan: Afib with RVR - In the ED, pt received Cardizem 20 mg IVP x2, Magnesium 2g IVPB, Metoprolol 5 mg IVP x2, Verapamil 2.5 mg IVP x2 - CTA chest pending- r/o PE - Cardiology consulted Jacqueline, as he has seen the pt in the past. Recommendations appreciated. - Verapamil 240 mg PO daily - Xarelto 15 mg PO daily - F/u EKG, troponin, echocardiogram - Troponin x1 is negative, will trend x2 q6h Lower extremity swelling r/o DVT - F/u bilateral lower extremity dopplers Asthma - Maintain spO2>92%- supplemental O2 PRN - Duoneb Q4H PRN - Soolumedrol 40 mg IVP q8h - montelukast 10 mg PO QHS - continue bpap - F/u ABG IDDM2 - Maintain euglycemia - Insulin glargine 30 units SC daily - f/u HgbA1c - Hypoglycemia protocol - Accuchecks ACHS with ISS Seizure disorder - Monitor mental status - Start keppra due to interaction with xarelto - F/u dilantin level - Neurology consulted, Dr. Hernandez. Recommendations appreciated. PPx: VTE: pt is on xarelto 15 mg PO GI: Pepcid 20 mg IVPB q12 Code status: full code Dispo: admit to ICU for further management Case was reviewed and discussed with attending physician, Dr. Jeremías Castro PGY1
[2018-05-21] MEDS ORDERED: Albuterol-Ipratrop 3 mg / 0.5 (3 ml) UD INH PRN (05:28)
[2018-05-21] MEDS ORDERED: Dextrose 50% SYRINGE Inj (50 ml) IV PRN (05:34)
[2018-05-21] MEDS ORDERED: Glucagon Recombinant 1 mg Inj IM PRN (05:34)
[2018-05-21] MEDS: MethylPREDNISolone 40 mg Vial IVP SCH ×3 (05:41→21:27)
[2018-05-21] MEDS ORDERED: MethylPREDNISolone 40 mg Vial ONE (05:43)
--- NOTE | 2018-05-21 05:47 | C.PDOC ---
History Of Present Illness 52 year old female with PMHx of asthma is brought to the ED by EMS for evaluation of asthma symptoms for the past day. Patient reports she took her nebulizers at home 4-5 times after which she went to sleep but she woke up with SOB. Patient also reports having productive cough with whitish sputum. Patient reports she recently had an admission for for asthma and rapid heartbeat approximately 1 month ago. 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 Patient denies fever, chills, CP, rash, recent travel, sick contacts. Time Seen by Provider: 05/21/18 02:46 Chief Complaint (Nursing): Respiratory Distress History Per: Patient, EMS History/Exam Limitations: no limitations Onset/Duration Of Symptoms: Days (1) Current Symptoms Are (Timing): Still Present Initiating Event: Upper Respiratory Illness Quality: Tightness Current Respiratory Medications: See Home Med List Severity: Moderate Associated Symptoms: Productive Cough Recent travel outside of the [place]: No Additional History Per: Patient, EMS Past Medical History Reviewed: Historical Data, Nursing Documentation, Vital Signs Vital Signs: Last Vital Signs Temp 98.7 F 05/21/18 02:45 Pulse 140 H 05/21/18 05:35 Resp 22 05/21/18 05:35 BP 123/84 05/21/18 05:35 Pulse Ox 97 05/21/18 05:35 - Medical History PMH: Asthma, Cardia Arrhythmia (new at fib), COPD (asthma), Diabetes (IDDM), Seizures Denies: Chronic Kidney Disease Surgical History: Cholecystectomy - [facility] Procedures INSERTION OF INFUSION DEV INTO L SUBCLAV VEIN, PERC APPROACH (03/01/18) Family History: States: Unknown Family Hx - Social History Hx Tobacco Use: No Hx Alcohol Use: Yes (occasionaly) Hx Substance Use: No - Immunization History Hx Tetanus Toxoid Vaccination: Yes Hx Influenza Vaccination: Yes Hx Pneumococcal Vaccination: Yes Review Of Systems Constitutional: Negative for: Fever, Chills ENT: Negative for: Throat Pain Cardiovascular: Negative for: Chest Pain Respiratory: Positive for: Cough, Shortness of Breath, Sputum, Wheezing Gastrointestinal: Negative for: Nausea, Vomiting, Abdominal Pain Skin: Negative for: Rash Neurological: Negative for: Weakness, Numbness, Headache Physical Exam - Physical Exam Appears: Non-toxic, In Acute Distress (moderate), Other (morbidly obese) Skin: Normal Color, Warm, Dry Head: Atraumatic, Normacephalic Eye(s): bilateral: Normal Inspection Oral Mucosa: Moist Neck: Normal ROM, Supple Chest: Symmetrical Cardiovascular: Rhythm Regular (tachycardic) Respiratory: No Rales, No Rhonchi, Wheezing (expiratory) Gastrointestinal/Abdominal: Soft, No Tenderness, No Guarding, No Rebound Extremity: Normal ROM, No Tenderness, No Swelling Neurological/Psych: Oriented x3, Normal Speech, Normal Cognition Gait: Steady ED Course And Treatment - Laboratory Results Result Diagrams: 05/21/18 03:00 05/21/18 03:25 Lab Results: PT 13.3 SECONDS (9.7-12.2) H 05/21/18 03:00 INR 1.2 05/21/18 03:00 APTT 37 SECONDS (21-34) H 05/21/18 03:00 Troponin I < 0.0120 ng/mL (0.00-0.120) 05/21/18 03:25 NT-Pro-B Natriuret Pep 580 pg/mL (0-900) 05/21/18 03:25 Total Bilirubin 1.1 mg/dL (0.2-1.3) 05/21/18 03:25 AST 37 U/L (14-36) H D 05/21/18 03:25 ALT 11 U/L (9-52) 05/21/18 03:25 Alkaline Phosphatase 121 U/L (38-126) 05/21/18 03:25 Total Protein 7.8 g/dL (6.3-8.3) 05/21/18 03:25 Albumin 4.2 g/dL (3.5-5.0) 05/21/18 03:25 Globulin 3.6 gm/dL (2.2-3.9) 05/21/18 03:25 Albumin/Globulin Ratio 1.2 (1.0-2.1) 05/21/18 03:25 ECG: Interpreted By Me, Viewed By Me ECG Rhythm: Sinus Tachycardia Interpretation Of ECG: PACs, normal axis Rate From EC (BPM) O2 Sat by Pulse Oximetry: 97 (BIPAP) Pulse Ox Interpretation: Normal Critical Care Time - Critical Care Note Total Time (in mins): 90 Documented critical care: time excludes all time spent performing seperately billable procedures. Medical Decision Making Medical Decision Making: Plan: * CT angio * Labs * EKG * CXR * Cardizem 20 mg IVP * Duoneb x 2 * Magnesium sulfate * IV fluids * Blood culture * Influenza A B Soon after patient arrived to the ED patient was noted to be in rapid AFiv at 200-205 BPM, medications were given with some resolution but patient returned to rapid afiv. ICU Dr. Veronica was called, saw patient at bedside and accepted patient for admission. 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 Patient received CT Angio prior to ICU admission, currently on BIPAP Disposition - Disposition Disposition Time: 05:00 Condition: GUARDED - Clinical Impression Clinical Impression: Asthma with status asthmaticus, Respiratory distress, Rapid atrial fibrillation - Scribe Statement The provider has reviewed the documentation as recorded by the Scribe Black Rouse All medical record entries made by the Scribe were at my direction and personally dictated by me. I have reviewed the chart and agree that the record accurately reflects my personal performance of the history, physical exam, medical decision making, and the department course for this patient. I have also personally directed, reviewed, and agree with the discharge instructions and disposition.
[2018-05-21 06:09] LABS: ANISOCYTOSIS SLIGHT; BASOPHIL 1 % (0-2); LYMPHOCYTE 14 % (20-40); MICROCYTOSIS SLIGHT; MONOCYTE 1 % (0-10); NEUTROPHIL 84 % (50-75); PLATELET ESTIMATE NORMAL (NORMAL); TOTAL CELLS COUNTED 100
[2018-05-21 06:09] LABS: ABG ALLEN TEST YES; ARTERIAL BLOOD GAS HCO3 21.8 mmol/L (21-28); ARTERIAL BLOOD GAS O2 SAT 100.5 % (95-98); ARTERIAL BLOOD GAS PCO2 33 mm/Hg (35-45); ARTERIAL BLOOD GAS PH 7.39 (7.35-7.45); ARTERIAL BLOOD GAS PO2 157 mm/Hg (80-100)
--- NOTE | 2018-05-21 08:05 | CP.CCUPN ---
CCU Subjective - Physician Review Events Since Last Encounter (Free Text): 05/21/18 08:02 Patient is currently sitting up in the chair comfortably. But she still having sinus tachycardia. She was receiving multiple nebulizers including albuterol and ipratropium. Patient has wheezing. No chest pain at this time. Tolerating the BiPAP. Patient in the past had a history of DVT, and was taking the anticoagulation. The PE and DVT acute less likely at this time. Possible acute exacerbation of wheezing. We will continue the current treatment. Doppler studies, echocardiogram, PICC line, and also continue the bronchodilators. CCU Objective - Vital Signs / Intake & Output Vital Signs (Last 4 hours): Vital Signs Pulse Resp BP Pulse Ox 05/21/18 07:34 138 H 20 100 05/21/18 06:58 139 H 20 110/80 95 05/21/18 06:27 97 05/21/18 06:18 148 H 20 113/71 99 05/21/18 06:03 146 H 20 132/68 97 05/21/18 05:35 140 H 22 123/84 97 05/21/18 05:00 100 H 05/21/18 04:56 130 H 20 129/86 97 05/21/18 04:47 130 H 22 122/78 97 05/21/18 04:37 125 H 20 134/37 L 92 L 05/21/18 04:29 115/55 L 05/21/18 04:26 130 H 20 115/55 L 92 L 05/21/18 04:20 119/59 L 05/21/18 04:17 137 H 20 119/59 L 93 L 05/21/18 04:15 157 H 22 114/63 94 L 05/21/18 04:06 156 H 22 97/52 L 94 L Intake and Output (Last 8hrs): Intake & Output 05/20/18 05/21/18 05/21/18 22:59 06:59 14:59 Weight 325 lb - Medications Active Medications: Active Medications Generic Name Dose Route Start Last Admin Trade Name Freq PRN Reason Stop Dose Admin Albuterol/Ipratropium 3 ml 05/21/18 05:28 Duoneb 3 Mg/0.5 Mg (3 Ml) Ud INH RQ4 PRN Wheezing Dextrose 0 ml 05/21/18 05:34 Dextrose 50% Inj IV STAT PRN Hypoglycemia Protocol Protocol Dextrose 0 gm 05/21/18 05:34 Glutose 15 PO ONCE PRN Hypoglycemia Protocol Protocol Famotidine 20 mg 05/21/18 10:00 Pepcid IVP Q12 SIMIN Glucagon 0 mg 05/21/18 05:34 Glucagen Diagnostic Kit IM STAT PRN Hypoglycemia Protocol Protocol Potassium Chloride 10 meq in 100 mls @ 100 mls/hr 05/21/18 04:15 05/21/18 06:45 Potassium Chloride 10 Meq/100 Ml IVPB 05/21/18 08:14 100 mls/hr Q1H SIMIN Administration Dextrose 1,000 mls @ 0 mls/hr 05/21/18 05:34 Dextrose 5% In Water 1000 Ml IV .Q0M PRN Hypoglycemia Protocol Protocol Per Protocol Insulin Glargine 30 unit 05/21/18 10:00 Lantus SC DAILY SIMIN Insulin Human Regular 0 unit 05/21/18 07:30 Novolin R SC ACHS SIMIN Protocol Levetiracetam 750 mg 05/21/18 10:00 Keppra PO BID SIMIN Methylprednisolone 40 mg 05/21/18 04:45 05/21/18 05:41 Solu-Medrol IVP 40 mg Q8H SIMIN Administration Montelukast Sodium 10 mg 05/21/18 22:00 Singulair PO HS SIMIN Rivaroxaban 15 mg 05/21/18 06:00 05/21/18 07:11 Xarelto PO Not Given BID SIMIN Verapamil HCl 240 mg 05/21/18 10:00 Calan Sr Tab PO DAILY SIMIN - Patient Studies Lab Studies: Lab Studies 05/21/18 05/21/18 05/21/18 Range/Units 07:23 05:55 05:45 WBC (4.8-10.8) K/uL RBC (3.80-5.20) Mil/uL Hgb (11.0-16.0) g/dL Hct (34.0-47.0) % MCV (81.0-99.0) fL MCH (27.0-31.0) pg MCHC (33.0-37.0) g/dL RDW (11.5-14.5) % Plt Count (130-400) K/uL MPV (7.2-11.7) fL Neut % (Auto) (50.0-75.0) % Lymph % (Auto) (20.0-40.0) % [place] % (Auto) (0.0-10.0) % Eos % (Auto) (0.0-4.0) % Baso % (Auto) (0.0-2.0) % Neut # (Auto) (1.8-7.0) K/uL Lymph # (Auto) (1.0-4.3) K/uL [place] # (Auto) (0.0-0.8) K/uL Eos # (Auto) (0.0-0.7) K/uL Baso # (Auto) (0.0-0.2) K/uL Neutrophils % (Manual) (50-75) % Lymphocytes % (Manual) (20-40) % Monocytes % (Manual) (0-10) % Basophils % (Manual) (0-2) % Platelet Estimate (NORMAL) Anisocytosis (manual) Microcytosis (manual) PT (9.7-12.2) SECONDS INR APTT (21-34) SECONDS Puncture Site Rr pCO2 33 L (35-45) mm/Hg pO2 157 H (80-100) mm/Hg HCO3 21.8 (21-28) mmol/L ABG pH 7.39 (7.35-7.45) ABG Total CO2 21.0 L (22-28) mmol/L ABG O2 Saturation 100.5 H (95-98) % ABG Base Excess -4.1 L (-2.0-3.0) mmol/L Balwinder Test Yes ABG Potassium 3.4 L (3.6-5.2) mmol/L A-a O2 Difference 158.0 mm/Hg Respiratory Index 1.0 Glucose 391 H (65-105) mg/dl Lactate 4.1 H* (0.7-2.1) mmol/L FiO2 50.0 % Crit Value Called To Lissette amanda Crit Value Called By Tiffany rt Crit Value Read Back Y Blood Gas Notified Time 608 Sodium 135.0 (132-148) mmol/L Potassium (3.6-5.2) mmol/L Chloride 104.0 (98-107) mmol/L Carbon Dioxide (22-30) mmol/L Anion Gap (10-20) BUN (7-17) mg/dL Creatinine (0.7-1.2) mg/dL Est GFR ( Amer) Est GFR (Non-Af Amer) POC Glucose (mg/dL) 360 H (65-110) mg/dL Random Glucose (65-105) mg/dL Calcium (8.6-10.4) mg/dl Total Bilirubin (0.2-1.3) mg/dL AST (14-36) U/L ALT (9-52) U/L Alkaline Phosphatase (38-126) U/L Troponin I (0.00-0.120) ng/mL NT-Pro-B Natriuret Pep (0-900) pg/mL Total Protein (6.3-8.3) g/dL Albumin (3.5-5.0) g/dL Globulin (2.2-3.9) gm/dL Albumin/Globulin Ratio (1.0-2.1) Triglycerides 90 (0-149) mg/dL Cholesterol 140 (0-199) mg/dL LDL Cholesterol Direct 81 (0-129) mg/dL HDL Cholesterol 40 (30-70) mg/dL TSH 3rd Generation 0.78 (0.46-4.68) mIU/L Arterial Blood Potassium 3.4 L (3.6-5.2) mmol/L Phenytoin (10-20) ug/mL Influenza Typ A,B (EIA) (NEGATIVE) 05/21/18 05/21/18 05/21/18 Range/Units 05:18 03:25 03:00 WBC 10.9 H (4.8-10.8) K/uL RBC 4.55 (3.80-5.20) Mil/uL Hgb 11.7 (11.0-16.0) g/dL Hct 36.0 (34.0-47.0) % MCV 79.0 L (81.0-99.0) fL MCH 25.8 L (27.0-31.0) pg MCHC 32.6 L (33.0-37.0) g/dL RDW 16.7 H (11.5-14.5) % Plt Count 333 D (130-400) K/uL MPV 9.5 (7.2-11.7) fL Neut % (Auto) 90.3 H (50.0-75.0) % Lymph % (Auto) 8.3 L (20.0-40.0) % [place] % (Auto) 1.0 (0.0-10.0) % Eos % (Auto) 0.1 (0.0-4.0) % Baso % (Auto) 0.3 (0.0-2.0) % Neut # (Auto) 9.8 H (1.8-7.0) K/uL Lymph # (Auto) 0.9 L (1.0-4.3) K/uL [place] # (Auto) 0.1 (0.0-0.8) K/uL Eos # (Auto) 0.0 (0.0-0.7) K/uL Baso # (Auto) 0.0 (0.0-0.2) K/uL Neutrophils % (Manual) 84 H (50-75) % Lymphocytes % (Manual) 14 L (20-40) % Monocytes % (Manual) 1 (0-10) % Basophils % (Manual) 1 (0-2) % Platelet Estimate Normal (NORMAL) Anisocytosis (manual) Slight Microcytosis (manual) Slight PT (9.7-12.2) SECONDS INR APTT (21-34) SECONDS Puncture Site pCO2 (35-45) mm/Hg pO2 (80-100) mm/Hg HCO3 (21-28) mmol/L ABG pH (7.35-7.45) ABG Total CO2 (22-28) mmol/L ABG O2 Saturation (95-98) % ABG Base Excess (-2.0-3.0) mmol/L Balwinder Test ABG Potassium (3.6-5.2) mmol/L A-a O2 Difference mm/Hg Respiratory Index Glucose (65-105) mg/dl Lactate (0.7-2.1) mmol/L FiO2 % Crit Value Called To Crit Value Called By Crit Value Read Back Blood Gas Notified Time Sodium 135 (132-148) mmol/L Potassium 3.5 L (3.6-5.2) mmol/L Chloride 98 (98-107) mmol/L Carbon Dioxide 22 (22-30) mmol/L Anion Gap 19 (10-20) BUN 6 L (7-17) mg/dL Creatinine 0.6 L (0.7-1.2) mg/dL Est GFR ( Amer) > 60 Est GFR (Non-Af Amer) > 60 POC Glucose (mg/dL) (65-110) mg/dL Random Glucose 307 H D (65-105) mg/dL Calcium 8.5 L (8.6-10.4) mg/dl Total Bilirubin 1.1 (0.2-1.3) mg/dL AST 37 H D (14-36) U/L ALT 11 (9-52) U/L Alkaline Phosphatase 121 (38-126) U/L Troponin I < 0.0120 (0.00-0.120) ng/mL NT-Pro-B Natriuret Pep 580 (0-900) pg/mL Total Protein 7.8 (6.3-8.3) g/dL Albumin 4.2 (3.5-5.0) g/dL Globulin 3.6 (2.2-3.9) gm/dL Albumin/Globulin Ratio 1.2 (1.0-2.1) Triglycerides (0-149) mg/dL Cholesterol (0-199) mg/dL LDL Cholesterol Direct (0-129) mg/dL HDL Cholesterol (30-70) mg/dL TSH 3rd Generation (0.46-4.68) mIU/L Arterial Blood Potassium (3.6-5.2) mmol/L Phenytoin < 3.0 L (10-20) ug/mL Influenza Typ A,B (EIA) (NEGATIVE) 05/21/18 05/21/18 05/21/18 Range/Units 03:00 03:00 02:55 WBC (4.8-10.8) K/uL RBC (3.80-5.20) Mil/uL Hgb (11.0-16.0) g/dL Hct (34.0-47.0) % MCV (81.0-99.0) fL MCH (27.0-31.0) pg MCHC (33.0-37.0) g/dL RDW (11.5-14.5) % Plt Count (130-400) K/uL MPV (7.2-11.7) fL Neut % (Auto) (50.0-75.0) % Lymph % (Auto) (20.0-40.0) % [place] % (Auto) (0.0-10.0) % Eos % (Auto) (0.0-4.0) % Baso % (Auto) (0.0-2.0) % Neut # (Auto) (1.8-7.0) K/uL Lymph # (Auto) (1.0-4.3) K/uL [place] # (Auto) (0.0-0.8) K/uL Eos # (Auto) (0.0-0.7) K/uL Baso # (Auto) (0.0-0.2) K/uL Neutrophils % (Manual) (50-75) % Lymphocytes % (Manual) (20-40) % Monocytes % (Manual) (0-10) % Basophils % (Manual) (0-2) % Platelet Estimate (NORMAL) Anisocytosis (manual) Microcytosis (manual) PT 13.3 H (9.7-12.2) SECONDS INR 1.2 APTT 37 H (21-34) SECONDS Puncture Site pCO2 (35-45) mm/Hg pO2 (80-100) mm/Hg HCO3 (21-28) mmol/L ABG pH (7.35-7.45) ABG Total CO2 (22-28) mmol/L ABG O2 Saturation (95-98) % ABG Base Excess (-2.0-3.0) mmol/L Balwinder Test ABG Potassium (3.6-5.2) mmol/L A-a O2 Difference mm/Hg Respiratory Index Glucose (65-105) mg/dl Lactate (0.7-2.1) mmol/L FiO2 % Crit Value Called To Crit Value Called By Crit Value Read Back Blood Gas Notified Time Sodium (132-148) mmol/L Potassium (3.6-5.2) mmol/L Chloride (98-107) mmol/L Carbon Dioxide (22-30) mmol/L Anion Gap (10-20) BUN (7-17) mg/dL Creatinine (0.7-1.2) mg/dL Est GFR ( Amer) Est GFR (Non-Af Amer) POC Glucose (mg/dL) 276 H (65-110) mg/dL Random Glucose (65-105) mg/dL Calcium (8.6-10.4) mg/dl Total Bilirubin (0.2-1.3) mg/dL AST (14-36) U/L ALT (9-52) U/L Alkaline Phosphatase (38-126) U/L Troponin I (0.00-0.120) ng/mL NT-Pro-B Natriuret Pep (0-900) pg/mL Total Protein (6.3-8.3) g/dL Albumin (3.5-5.0) g/dL Globulin (2.2-3.9) gm/dL Albumin/Globulin Ratio (1.0-2.1) Triglycerides (0-149) mg/dL Cholesterol (0-199) mg/dL LDL Cholesterol Direct (0-129) mg/dL HDL Cholesterol (30-70) mg/dL TSH 3rd Generation (0.46-4.68) mIU/L Arterial Blood Potassium (3.6-5.2) mmol/L Phenytoin (10-20) ug/mL Influenza Typ A,B (EIA) Negative for flu a/b (NEGATIVE) Laboratory Results - last 24 hr 05/21/18 05/21/18 05/21/18 02:55 03:00 03:00 WBC RBC Hgb Hct MCV MCH MCHC RDW Plt Count MPV Neut % (Auto) Lymph % (Auto) [place] % (Auto) Eos % (Auto) Baso % (Auto) Neut # (Auto) Lymph # (Auto) [place] # (Auto) Eos # (Auto) Baso # (Auto) Neutrophils % (Manual) Lymphocytes % (Manual) Monocytes % (Manual) Basophils % (Manual) Platelet Estimate Anisocytosis (manual) Microcytosis (manual) PT 13.3 H INR 1.2 APTT 37 H Puncture Site pCO2 pO2 HCO3 ABG pH ABG Total CO2 ABG O2 Saturation ABG Base Excess Balwinder Test ABG Potassium A-a O2 Difference Respiratory Index Glucose Lactate FiO2 Crit Value Called To Crit Value Called By Crit Value Read Back Blood Gas Notified Time Sodium Potassium Chloride Carbon Dioxide Anion Gap BUN Creatinine Est GFR ( Amer) Est GFR (Non-Af Amer) POC Glucose (mg/dL) 276 H Random Glucose Calcium Total Bilirubin AST ALT Alkaline Phosphatase Troponin I NT-Pro-B Natriuret Pep Total Protein Albumin Globulin Albumin/Globulin Ratio Triglycerides Cholesterol LDL Cholesterol Direct HDL Cholesterol TSH 3rd Generation Arterial Blood Potassium Phenytoin Influenza Typ A,B (EIA) Negative for flu a/b 05/21/18 05/21/18 05/21/18 03:00 03:25 05:18 WBC 10.9 H RBC 4.55 Hgb 11.7 Hct 36.0 MCV 79.0 L MCH 25.8 L MCHC 32.6 L RDW 16.7 H Plt Count 333 D MPV 9.5 Neut % (Auto) 90.3 H Lymph % (Auto) 8.3 L [place] % (Auto) 1.0 Eos % (Auto) 0.1 Baso % (Auto) 0.3 Neut # (Auto) 9.8 H Lymph # (Auto) 0.9 L [place] # (Auto) 0.1 Eos # (Auto) 0.0 Baso # (Auto) 0.0 Neutrophils % (Manual) 84 H Lymphocytes % (Manual) 14 L Monocytes % (Manual) 1 Basophils % (Manual) 1 Platelet Estimate Normal Anisocytosis (manual) Slight Microcytosis (manual) Slight PT INR APTT Puncture Site pCO2 pO2 HCO3 ABG pH ABG Total CO2 ABG O2 Saturation ABG Base Excess Balwinder Test ABG Potassium A-a O2 Difference Respiratory Index Glucose Lactate FiO2 Crit Value Called To Crit Value Called By Crit Value Read Back Blood Gas Notified Time Sodium 135 Potassium 3.5 L Chloride 98 Carbon Dioxide 22 Anion Gap 19 BUN 6 L Creatinine 0.6 L Est GFR ( Amer) > 60 Est GFR (Non-Af Amer) > 60 POC Glucose (mg/dL) Random Glucose 307 H D Calcium 8.5 L Total Bilirubin 1.1 AST 37 H D ALT 11 Alkaline Phosphatase 121 Troponin I < 0.0120 NT-Pro-B Natriuret Pep 580 Total Protein 7.8 Albumin 4.2 Globulin 3.6 Albumin/Globulin Ratio 1.2 Triglycerides Cholesterol LDL Cholesterol Direct HDL Cholesterol TSH 3rd Generation Arterial Blood Potassium Phenytoin < 3.0 L Influenza Typ A,B (EIA) 05/21/18 05/21/18 05/21/18 05:45 05:55 07:23 WBC RBC Hgb Hct MCV MCH MCHC RDW Plt Count MPV Neut % (Auto) Lymph % (Auto) [place] % (Auto) Eos % (Auto) Baso % (Auto) Neut # (Auto) Lymph # (Auto) [place] # (Auto) Eos # (Auto) Baso # (Auto) Neutrophils % (Manual) Lymphocytes % (Manual) Monocytes % (Manual) Basophils % (Manual) Platelet Estimate Anisocytosis (manual) Microcytosis (manual) PT INR APTT Puncture Site Rr pCO2 33 L pO2 157 H HCO3 21.8 ABG pH 7.39 ABG Total CO2 21.0 L ABG O2 Saturation 100.5 H ABG Base Excess -4.1 L Balwinder Test Yes ABG Potassium 3.4 L A-a O2 Difference 158.0 Respiratory Index 1.0 Glucose 391 H Lactate 4.1 H* FiO2 50.0 Crit Value Called To Lissette rn Crit Value Called By Tiffany rt Crit Value Read Back Y Blood Gas Notified Time 608 Sodium 135.0 Potassium Chloride 104.0 Carbon Dioxide Anion Gap BUN Creatinine Est GFR ( Amer) Est GFR (Non-Af Amer) POC Glucose (mg/dL) 360 H Random Glucose Calcium Total Bilirubin AST ALT Alkaline Phosphatase Troponin I NT-Pro-B Natriuret Pep Total Protein Albumin Globulin Albumin/Globulin Ratio Triglycerides 90 Cholesterol 140 LDL Cholesterol Direct 81 HDL Cholesterol 40 TSH 3rd Generation 0.78 Arterial Blood Potassium 3.4 L Phenytoin Influenza Typ A,B (EIA) EKG/Cardiology Studies: Cardiology / EKG Studies 05/21/18 03:03 ELECTROCARDIOGRAM Stat Comment: Mode Of Transportation: BED Reason For Exam: SOB 05/21/18 09:30 EKG [ELECTROCARDIOGRAM] Q6H Comment: Mode Of Transportation: Reason For Exam: f/u 05/21/18 15:30 EKG [ELECTROCARDIOGRAM] Q6H Comment: Mode Of Transportation: Reason For Exam: f/u Fingerstick Blood Sugar Results: 360
[2018-05-21 08:51] LABS: ABG ALLEN TEST POS; ARTERIAL BLOOD GAS HCO3 22.3 mmol/L (21-28); ARTERIAL BLOOD GAS O2 SAT 99.3 % (95-98); ARTERIAL BLOOD GAS PCO2 31 mm/Hg (35-45); ARTERIAL BLOOD GAS PH 7.42 (7.35-7.45); ARTERIAL BLOOD GAS PO2 185 mm/Hg (80-100); ARTERIAL BLOOD GAS TCO2 21.1 mmol/L (22-28)
--- NOTE | 2018-05-21 09:28 | RAD ---
Chest x-ray single frontal view HISTORY: Shortness of breath. COMPARISON: 03/01/2018 Findings: Moderate venous congestion. Right hilar prominence. Cardiomegaly. Enlarged ectatic aorta. Degenerative changes in the spine and shoulders. Impression: Moderate venous congestion. Right hilar prominence. Cardiomegaly. Enlarged ectatic aorta.
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
[2018-05-21] MEDS ORDERED: Phenytoin 100 mg/4 ml Oral Susp UD PO SCH (10:00)
[2018-05-21] MEDS ORDERED: Potassium Chloride 20 mEq ER Tab PO ONE (10:30)
[2018-05-21] MEDS: (Lantus) Insulin Glargine, Recombinant SC SCH (10:31)
[2018-05-21] MEDS: (Novolin R) Insulin Human Regular 100 units/ml vial SC SCH ×4 (10:32→21:34)
[2018-05-21] MEDS: Verapamil 240 mg ER Tab PO SCH (11:31)
[2018-05-21] MEDS: Ipratropium 0.02% Inhal Soln (0.5 mg/2.5 ml) UD IH SCH ×3 (11:41→19:44)
[2018-05-21 11:55] LABS: CK-MB 1.08 ng/mL (0.0-3.38)
[2018-05-21 15:49] LABS: CK-MB 1.23 ng/mL (0.0-3.38)
[2018-05-21] MEDS ORDERED: Promethazine 12.5 mg/10 ml Syrup PO ONE (20:25)
[2018-05-22] MEDS: Ipratropium 0.02% Inhal Soln (0.5 mg/2.5 ml) UD IH SCH ×4 (02:43→19:57)
[2018-05-22] MEDS: MethylPREDNISolone 40 mg Vial IVP SCH ×3 (05:37→19:48)
[2018-05-22 06:29] LABS: BASO % 0.2 % (0.0-2.0); HEMOGLOBIN 10.2 g/dL (11.0-16.0); LYMPH % 8.8 % (20.0-40.0); MEAN CELL VOLUME 78.6 fL (81.0-99.0); MEAN CORPUSCULAR HEMOGLOBIN 25.3 pg (27.0-31.0); MEAN CORPUSCULAR HGB CONC 32.2 g/dL (33.0-37.0); MEAN PLATELET VOLUME 9.9 fL (7.2-11.7); MONO # 0.4 K/uL (0.0-0.8); NEUT # 10.3 K/uL (1.8-7.0); PLATELET COUNT 279 K/uL (130-400); RBC 4.05 Mil/uL (3.80-5.20); RED CELL DISTRIBUTION WIDTH 16.5 % (11.5-14.5); WHITE BLOOD COUNT 11.7 K/uL (4.8-10.8)
[2018-05-22 06:54] LABS: ALB/GLOB RATIO 1.2 (1.0-2.1); ALBUMIN 3.8 g/dL (3.5-5.0); ALT/SGPT 11 U/L (9-52); AST/SGOT 24 U/L (14-36); BLOOD UREA NITROGEN 10 mg/dL (7-17); CALCIUM 8.7 mg/dl (8.6-10.4); GFR NON-AFRICAN AMERICAN > 60
--- NOTE | 2018-05-22 06:59 | CON ---
DATE: 05/21/2018 REASON FOR CONSULTATION: Shortness of breath. HISTORY OF PRESENT ILLNESS: The patient is a 52-year-old female who has history of bronchial asthma, history of DVT, and pulmonary embolism in the past according to the patient. According to the patient, did not require IVC filter placement in the past. The patient has a history of paroxysmal atrial fibrillation and I was consulted on the patient last February, i.e., two and a half months ago when the patient presented because of chest discomfort and was found to be in rapid atrial fibrillation. The patient during this admission was in rapid AFib, but converted in the ICU to sinus rhythm. The patient denies any prior history of heart attack or any cardiac catheterization in the past. SOCIAL HISTORY: Nonsmoker and nondrinker. She has 6 children, the youngest 18 years old. PAST MEDICAL HISTORY: DVT, pulmonary embolus, seizure disorder, bronchial asthma. CURRENT MEDICATIONS: Atrovent inhaler every 6 hours, Calan SR 240 mg once a day, Keppra 750 mg once a day, Lantus insulin, Novolin R, 20 mg intravenously twice a day, Spiriva 18 mcg inhalation daily, Solu-Medrol 40 mg intravenously every 8 hours, Xanax 0.25 mg at bedtime, and Xarelto 15 mg p.o. twice a day. REVIEW OF SYSTEMS: No dizziness or syncope. No hematemesis or melena. PHYSICAL EXAMINATION: GENERAL: The patient is a middle-aged female who does not appear to be in any distress. VITAL SIGNS: Blood pressure 114/65, heart rate 77, and temperature 98.9. HEENT: Normocephalic. CHEST: Bilateral rhonchi. HEART: S1, S2, regular and distant. ABDOMEN: Soft. EXTREMITIES: 1+ pitting edema. No calf tenderness. LABORATORY DATA: Hemoglobin and hematocrit 11.7 and 36, white count 10.9, and platelet count 333,000. Three sets of troponins are negative. SMA-7: Sodium 135, potassium 3.5, chloride 98, CO2 of 22, glucose 307, BUN 6, and creatinine 0.6. Lipid profile is within normal limits. Today's EKG appears sinus rhythm at a rate of 84, prolonged QT-interval. Echocardiography study in February of last year revealed normal ejection fraction, no pericardial effusion, very poor window, suggest FAHAD. Venous Doppler of lower extremity was performed and the report is still pending. Venous Doppler last February was negative for DVT. CT angio of the chest in February was negative for central or segmental pulmonary embolus. ASSESSMENT: 1. Paroxysmal atrial fibrillation. 2. Rule out recurrence of either deep vein thrombosis or pulmonary embolus or both. 3. Morbid obesity. 4. Uncontrolled diabetes mellitus. 5. Hypokalemia. 6. History of seizure disorder. RECOMMENDATIONS: Continue current Xarelto at 15 mg twice a day, Solu-Medrol 40 mg intravenously every 8 hours, Keppra 750 mg twice a day, Calan SR 240 mg once a day. The patient is scheduled to undergo ventilation perfusion scan because of her poor venous access to perform CT angio of the chest. James Arvizu MD
[2018-05-22] MEDS: Tiotropium 18 mcg Cap For Inhalation INH SCH (08:10)
[2018-05-22] MEDS: (Novolin R) Insulin Human Regular 100 units/ml vial SC SCH ×4 (08:11→21:42)
[2018-05-22 08:35] LABS: LYMPHOCYTE 11 % (20-40); MONOCYTE 2 % (0-10); NEUTROPHIL 87 % (50-75); PLATELET ESTIMATE NORMAL (NORMAL); TOTAL CELLS COUNTED 100
[2018-05-22 08:36] LABS: ANISOCYTOSIS SLIGHT; HYPOCHROMIC SLIGHT; POIKILOCYTOSIS SLIGHT
[2018-05-22] MEDS: Verapamil 240 mg ER Tab PO SCH (10:12)
[2018-05-22] MEDS: (Lantus) Insulin Glargine, Recombinant SC SCH (10:12)
--- NOTE | 2018-05-22 10:15 | VASCLAB ---
Date of service: 05/21/2018 PROCEDURE: Lower Extremity Venous Duplex Exam. HISTORY: Leg swelling PRIORS: None. TECHNIQUE: Bilateral common femoral, femoral, popliteal and posterior tibial, peroneal and great saphenous veins were evaluated. Flow was assessed with color Doppler, compressibility, assessment of phasic flow and augmentation response. Report prepared by BIB Payton FINDINGS: RIGHT: 1. Common Femoral Vein: 1.1. Compressibility - Fully compressible: Thrombus - None : Flow - Phasic: Augmentation -Normal: Reflux - None. 2. Femoral Vein: 2.1. Compressibility - Fully compressible: Thrombus - None : Flow - Phasic: Augmentation -Normal: Reflux - None. 3. Popliteal Vein: 3.1. Compressibility - Fully compressible: Thrombus - None : Flow - Phasic: Augmentation -Normal: Reflux - None. 4. Posterior Tibial Vein: 4.1. Compressibility - Fully compressible: Thrombus - None: Flow - Phasic: Augmentation -Normal: Reflux - None. 5. Peroneal Vein: 5.1. Unable to visualize 6. Great Saphenous Vein: 6.1. Compressibility - Fully compressible: Thrombus - None: Flow - Phasic: Augmentation - Normal: Reflux - None. LEFT: 1. Common Femoral Vein: 1.1. Compressibility - Fully compressible: Thrombus - None: Flow - Phasic: Augmentation -Normal: Reflux - None. 2. Femoral Vein: 2.1. Compressibility - Fully compressible: Thrombus - None: Flow - Phasic: Augmentation -Normal: Reflux - None. 3. Popliteal Vein: 3.1. Compressibility - Fully compressible: Thrombus - None : Flow - Phasic: Augmentation -Normal: Reflux - None. 4. Posterior Tibial Vein: 4.1. Compressibility - Fully compressible: Thrombus - None: Flow - Phasic: Augmentation -Normal: Reflux - None. 5. Peroneal Vein: 5.1. Unable to visualize 6. Great Saphenous Vein: 6.1. Compressibility - Fully compressible: Thrombus - None: Flow - Phasic: Augmentation - Normal: Reflux - None. OTHER FINDINGS: Technically difficult exam due to patient's body habitus and diminutive caliber vessels distally. IMPRESSION: No evidence of deep or superficial vein thrombosis of the bilateral lower extremities, for the examined veins.
[2018-05-22] MEDS ORDERED: Promethazine 12.5 mg/10 ml Syrup PO ONE (11:21)
--- NOTE | 2018-05-22 16:04 | CP.CCUPN ---
CCU Objective - Vital Signs / Intake & Output Intake and Output (Last 8hrs): Intake & Output 05/22/18 05/22/18 05/22/18 06:59 14:59 22:59 Intake Total 480 Output Total 400 Balance 80 Weight 322 lb 9 oz Intake: Oral 480 Output: Urine 400 Urine, Voided 400 Other: # Bowel Movements 0 - Medications Active Medications: Active Medications Generic Name Dose Route Start Last Admin Trade Name Freq PRN Reason Stop Dose Admin Alprazolam 0.25 mg 05/21/18 22:00 05/21/18 21:29 Xanax PO 05/28/18 22:01 0.25 mg HS SIMIN Administration Dextrose 0 ml 05/21/18 05:34 Dextrose 50% Inj IV STAT PRN Hypoglycemia Protocol Protocol Dextrose 0 gm 05/21/18 05:34 Glutose 15 PO ONCE PRN Hypoglycemia Protocol Protocol Famotidine 20 mg 05/21/18 10:00 05/22/18 10:11 Pepcid IVP 20 mg Q12 SIMIN Administration Glucagon 0 mg 05/21/18 05:34 Glucagen Diagnostic Kit IM STAT PRN Hypoglycemia Protocol Protocol Dextrose 1,000 mls @ 0 mls/hr 05/21/18 05:34 Dextrose 5% In Water 1000 Ml IV .Q0M PRN Hypoglycemia Protocol Protocol Per Protocol Insulin Glargine 30 unit 05/21/18 10:00 05/22/18 10:12 Lantus SC 30 units DAILY SIMIN Administration Insulin Human Regular 0 unit 05/21/18 18:40 05/22/18 12:17 Novolin R SC 10 u ACHS SIMIN Administration Protocol Ipratropium [place] 0.5 mg 05/21/18 09:45 05/22/18 14:18 Atrovent IH 0.5 mg RQ6 SIMIN Administration Levetiracetam 750 mg 05/21/18 10:00 05/22/18 10:11 Keppra PO 750 mg BID SIMIN Administration Methylprednisolone 40 mg 05/21/18 04:45 05/22/18 13:48 Solu-Medrol IVP 40 mg Q8H SIMIN Administration Montelukast Sodium 10 mg 05/21/18 22:00 05/21/18 21:27 Singulair PO 10 mg HS SIMIN Administration Pneumococcal Polyvalent Vaccine 0.5 ml 05/23/18 14:00 Pneumovax 23 Vaccine IM 05/23/18 14:01 .ONCE ONE Promethazine HCl 12.5 mg 05/22/18 12:18 Phenergan Syrup PO Q6 PRN Cough Rivaroxaban 15 mg 05/21/18 18:00 05/22/18 10:11 Xarelto PO 15 mg BID SIMIN Administration Tiotropium [place] 1 inhaler 05/21/18 10:00 Spiriva Inhalation Handihaler Device INH DAILY SIMIN Tiotropium [place] 18 mcg 05/22/18 08:00 05/22/18 08:10 Spiriva INH 18 mcg RQ24 SIMIN Administration Verapamil HCl 240 mg 05/21/18 10:00 05/22/18 10:12 Calan Sr Tab PO 240 mg DAILY SIMIN Administration - Patient Studies Lab Studies: Microbiology Studies 05/21/18 10:02 MRSA Culture (Admit) - Final Naris MRSA NOT DETECTED 05/21/18 03:00 Blood Culture - Preliminary Blood NO GROWTH AFTER 24 HOURS 05/21/18 03:30 Blood Culture - Preliminary Blood NO GROWTH AFTER 24 HOURS Lab Studies 05/22/18 05/22/18 05/22/18 Range/Units 12:08 11:54 07:28 WBC (4.8-10.8) K/uL RBC (3.80-5.20) Mil/uL Hgb (11.0-16.0) g/dL Hct (34.0-47.0) % MCV (81.0-99.0) fL MCH (27.0-31.0) pg MCHC (33.0-37.0) g/dL RDW (11.5-14.5) % Plt Count (130-400) K/uL MPV (7.2-11.7) fL Neut % (Auto) (50.0-75.0) % Lymph % (Auto) (20.0-40.0) % [place] % (Auto) (0.0-10.0) % Eos % (Auto) (0.0-4.0) % Baso % (Auto) (0.0-2.0) % Neut # (Auto) (1.8-7.0) K/uL Lymph # (Auto) (1.0-4.3) K/uL [place] # (Auto) (0.0-0.8) K/uL Eos # (Auto) (0.0-0.7) K/uL Baso # (Auto) (0.0-0.2) K/uL Neutrophils % (Manual) (50-75) % Lymphocytes % (Manual) (20-40) % Monocytes % (Manual) (0-10) % Platelet Estimate (NORMAL) Hypochromasia (manual) Poikilocytosis (manual Anisocytosis (manual) D-Dimer, Quantitative < 200 (0-243) ng/mlDDU Sodium (132-148) mmol/L Potassium (3.6-5.2) mmol/L Chloride (98-107) mmol/L Carbon Dioxide (22-30) mmol/L Anion Gap (10-20) BUN (7-17) mg/dL Creatinine (0.7-1.2) mg/dL Est GFR ( Amer) Est GFR (Non-Af Amer) POC Glucose (mg/dL) 398 H 343 H (65-110) mg/dL Random Glucose (65-105) mg/dL Calcium (8.6-10.4) mg/dl Phosphorus (2.5-4.5) mg/dL Magnesium (1.6-2.3) mg/dL Total Bilirubin (0.2-1.3) mg/dL AST (14-36) U/L ALT (9-52) U/L Alkaline Phosphatase (38-126) U/L Total Protein (6.3-8.3) g/dL Albumin (3.5-5.0) g/dL Globulin (2.2-3.9) gm/dL Albumin/Globulin Ratio (1.0-2.1) C. difficile Ag & Toxin (NEGATIVE) 05/22/18 05/22/18 05/21/18 Range/Units 06:19 06:19 21:25 WBC 11.7 H (4.8-10.8) K/uL RBC 4.05 (3.80-5.20) Mil/uL Hgb 10.2 L (11.0-16.0) g/dL Hct 31.8 L (34.0-47.0) % MCV 78.6 L (81.0-99.0) fL MCH 25.3 L (27.0-31.0) pg MCHC 32.2 L (33.0-37.0) g/dL RDW 16.5 H (11.5-14.5) % Plt Count 279 (130-400) K/uL MPV 9.9 (7.2-11.7) fL Neut % (Auto) 88.0 H (50.0-75.0) % Lymph % (Auto) 8.8 L (20.0-40.0) % [place] % (Auto) 3.0 (0.0-10.0) % Eos % (Auto) 0.0 (0.0-4.0) % Baso % (Auto) 0.2 (0.0-2.0) % Neut # (Auto) 10.3 H (1.8-7.0) K/uL Lymph # (Auto) 1.0 (1.0-4.3) K/uL [place] # (Auto) 0.4 (0.0-0.8) K/uL Eos # (Auto) 0.0 (0.0-0.7) K/uL Baso # (Auto) 0.0 (0.0-0.2) K/uL Neutrophils % (Manual) 87 H (50-75) % Lymphocytes % (Manual) 11 L (20-40) % Monocytes % (Manual) 2 (0-10) % Platelet Estimate Normal (NORMAL) Hypochromasia (manual) Slight Poikilocytosis (manual Slight Anisocytosis (manual) Slight D-Dimer, Quantitative (0-243) ng/mlDDU Sodium 136 (132-148) mmol/L Potassium 4.5 (3.6-5.2) mmol/L Chloride 104 (98-107) mmol/L Carbon Dioxide 25 (22-30) mmol/L Anion Gap 12 (10-20) BUN 10 (7-17) mg/dL Creatinine 0.6 L (0.7-1.2) mg/dL Est GFR ( Amer) > 60 Est GFR (Non-Af Amer) > 60 POC Glucose (mg/dL) 339 H (65-110) mg/dL Random Glucose 296 H (65-105) mg/dL Calcium 8.7 (8.6-10.4) mg/dl Phosphorus 1.8 L (2.5-4.5) mg/dL Magnesium 2.4 H (1.6-2.3) mg/dL Total Bilirubin 0.5 (0.2-1.3) mg/dL AST 24 (14-36) U/L ALT 11 (9-52) U/L Alkaline Phosphatase 94 (38-126) U/L Total Protein 7.0 (6.3-8.3) g/dL Albumin 3.8 (3.5-5.0) g/dL Globulin 3.2 (2.2-3.9) gm/dL Albumin/Globulin Ratio 1.2 (1.0-2.1) C. difficile Ag & Toxin (NEGATIVE) 05/21/18 05/21/18 Range/Units 16:46 07:54 WBC (4.8-10.8) K/uL RBC (3.80-5.20) Mil/uL Hgb (11.0-16.0) g/dL Hct (34.0-47.0) % MCV (81.0-99.0) fL MCH (27.0-31.0) pg MCHC (33.0-37.0) g/dL RDW (11.5-14.5) % Plt Count (130-400) K/uL MPV (7.2-11.7) fL Neut % (Auto) (50.0-75.0) % Lymph % (Auto) (20.0-40.0) % [place] % (Auto) (0.0-10.0) % Eos % (Auto) (0.0-4.0) % Baso % (Auto) (0.0-2.0) % Neut # (Auto) (1.8-7.0) K/uL Lymph # (Auto) (1.0-4.3) K/uL [place] # (Auto) (0.0-0.8) K/uL Eos # (Auto) (0.0-0.7) K/uL Baso # (Auto) (0.0-0.2) K/uL Neutrophils % (Manual) (50-75) % Lymphocytes % (Manual) (20-40) % Monocytes % (Manual) (0-10) % Platelet Estimate (NORMAL) Hypochromasia (manual) Poikilocytosis (manual Anisocytosis (manual) D-Dimer, Quantitative (0-243) ng/mlDDU Sodium (132-148) mmol/L Potassium (3.6-5.2) mmol/L Chloride (98-107) mmol/L Carbon Dioxide (22-30) mmol/L Anion Gap (10-20) BUN (7-17) mg/dL Creatinine (0.7-1.2) mg/dL Est GFR ( Amer) Est GFR (Non-Af Amer) POC Glucose (mg/dL) 364 H (65-110) mg/dL Random Glucose (65-105) mg/dL Calcium (8.6-10.4) mg/dl Phosphorus (2.5-4.5) mg/dL Magnesium (1.6-2.3) mg/dL Total Bilirubin (0.2-1.3) mg/dL AST (14-36) U/L ALT (9-52) U/L Alkaline Phosphatase (38-126) U/L Total Protein (6.3-8.3) g/dL Albumin (3.5-5.0) g/dL Globulin (2.2-3.9) gm/dL Albumin/Globulin Ratio (1.0-2.1) C. difficile Ag & Toxin Negative (NEGATIVE) Laboratory Results - last 24 hr 05/21/18 05/21/18 05/21/18 07:54 16:46 21:25 WBC RBC Hgb Hct MCV MCH MCHC RDW Plt Count MPV Neut % (Auto) Lymph % (Auto) [place] % (Auto) Eos % (Auto) Baso % (Auto) Neut # (Auto) Lymph # (Auto) [place] # (Auto) Eos # (Auto) Baso # (Auto) Neutrophils % (Manual) Lymphocytes % (Manual) Monocytes % (Manual) Platelet Estimate Hypochromasia (manual) Poikilocytosis (manual Anisocytosis (manual) D-Dimer, Quantitative Sodium Potassium Chloride Carbon Dioxide Anion Gap BUN Creatinine Est GFR ( Amer) Est GFR (Non-Af Amer) POC Glucose (mg/dL) 364 H 339 H Random Glucose Calcium Phosphorus Magnesium Total Bilirubin AST ALT Alkaline Phosphatase Total Protein Albumin Globulin Albumin/Globulin Ratio C. difficile Ag & Toxin Negative 05/22/18 05/22/18 05/22/18 06:19 06:19 07:28 WBC 11.7 H RBC 4.05 Hgb 10.2 L Hct 31.8 L MCV 78.6 L MCH 25.3 L MCHC 32.2 L RDW 16.5 H Plt Count 279 MPV 9.9 Neut % (Auto) 88.0 H Lymph % (Auto) 8.8 L [place] % (Auto) 3.0 Eos % (Auto) 0.0 Baso % (Auto) 0.2 Neut # (Auto) 10.3 H Lymph # (Auto) 1.0 [place] # (Auto) 0.4 Eos # (Auto) 0.0 Baso # (Auto) 0.0 Neutrophils % (Manual) 87 H Lymphocytes % (Manual) 11 L Monocytes % (Manual) 2 Platelet Estimate Normal Hypochromasia (manual) Slight Poikilocytosis (manual Slight Anisocytosis (manual) Slight D-Dimer, Quantitative Sodium 136 Potassium 4.5 Chloride 104 Carbon Dioxide 25 Anion Gap 12 BUN 10 Creatinine 0.6 L Est GFR ( Amer) > 60 Est GFR (Non-Af Amer) > 60 POC Glucose (mg/dL) 343 H Random Glucose 296 H Calcium 8.7 Phosphorus 1.8 L Magnesium 2.4 H Total Bilirubin 0.5 AST 24 ALT 11 Alkaline Phosphatase 94 Total Protein 7.0 Albumin 3.8 Globulin 3.2 Albumin/Globulin Ratio 1.2 C. difficile Ag & Toxin 05/22/18 05/22/18 11:54 12:08 WBC RBC Hgb Hct MCV MCH MCHC RDW Plt Count MPV Neut % (Auto) Lymph % (Auto) [place] % (Auto) Eos % (Auto) Baso % (Auto) Neut # (Auto) Lymph # (Auto) [place] # (Auto) Eos # (Auto) Baso # (Auto) Neutrophils % (Manual) Lymphocytes % (Manual) Monocytes % (Manual) Platelet Estimate Hypochromasia (manual) Poikilocytosis (manual Anisocytosis (manual) D-Dimer, Quantitative < 200 Sodium Potassium Chloride Carbon Dioxide Anion Gap BUN Creatinine Est GFR ( Amer) Est GFR (Non-Af Amer) POC Glucose (mg/dL) 398 H Random Glucose Calcium Phosphorus Magnesium Total Bilirubin AST ALT Alkaline Phosphatase Total Protein Albumin Globulin Albumin/Globulin Ratio C. difficile Ag & Toxin Radiology Impressions: Radiology Impressions Duplex Scan Lower Extremity Artery 05/21/18 04:49 IMPRESSION: No evidence of deep or superficial vein thrombosis of the bilateral lower extremities, for the examined veins. EKG/Cardiology Studies: Cardiology / EKG Studies 05/21/18 15:30 EKG [ELECTROCARDIOGRAM] Q6H Comment: Mode Of Transportation: Reason For Exam: f/u Fingerstick Blood Sugar Results: 398 Critical Care Progress Note - Nutrition Nutrition: Nutrition Category Date Time Status Diabetic [Consistent Carbohydrate] [DIET] Diets 05/21/18 Breakfast Active
--- NOTE | 2018-05-22 19:12 | PN ---
DATE: 05/22/2018 SUBJECTIVE: The patient denies any chest pain. Her shortness of breath has improved. PHYSICAL EXAMINATION: VITAL SIGNS: Blood pressure 106/62, heart rate 73, temperature 97.8, respirations 20. HEENT: Normocephalic. CHEST: Minimal rhonchi. HEART: S1 and S2 regular. EXTREMITIES: 1+ pitting edema. LABORATORY DATA: Today's SMA-7 is within normal limits except for glucose of 296 and creatinine 0.6. Phosphorous below normal at 1.8. Today's hemoglobin and hematocrit 10.2 and 31.8, white count 11.7, platelet count 279,000. Official report of venous Doppler of lower extremities, no evidence of deep or superficial DVT. ASSESSMENT: 1. Chest pain. Myocardial infarction is ruled out. 2. Uncontrolled diabetes mellitus. 3. Bronchial asthma. 4. History of deep venous thrombosis in the past. Most recent Doppler study was negative for deep venous thrombosis. 5. Hypophosphatemia. RECOMMENDATIONS: Continue Calan SR 240 mg once a day, Keppra 750 mg twice a day, Pepcid 20 mg twice a day, Solu-Medrol 40 mg every 8 hours, Xarelto 15 mg twice a day. Proceed with ventilation perfusion scan if there is no contraindication. James Arvizu MD
--- NOTE | 2018-05-22 20:13 | CP.PCM.PN ---
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 Currently upon FULL ROS: Stated that her breathing was much better Dry nonproductive cough comes and goes NO palpitations NO Chest Pain NO abdominal pain NO n/v/d/c NO burning/pain with urination NO other complaints upon FULL ROS General: AAOx3, NAD and speaking in full sentences HEENT: NCA, PERRLA, EOMI, NO lymphadenopathy, NO thyromegaly, NO pharyngeal erythema/exudate Cardio: NS1 and NS2, NO M/R/G Resp: CTA B/L, NO R/R/W GI: BSx4, Soft, Central Obesity, NO HSM (limited due to body habitus), NO guarding/rebound tenderness Extremities: NO edema, Capillary refill is 2 seconds, Pulses are strong and equal Neuro: CN II through XII are grossly intact Assessment and Plan: 1). Afibrillation with RVR Rate is currently under control Verapmil 240 mg PO 1x/day Xarelto 15 mg PO 2x/day Cardiology Dr. Arvizu 2). Abrupt SOB while layding down at home This is the complaint that prompted her to call EMS Considering her history of recurrently LE DVTs could there be a PE? Unfortunately, CT Angio Chest could not be performed due to IV access V/Q Scan has been ordered Patient is already on Xarelto 15 mg PO 2x/day 3). Hx Recurrently LE DVTs Bilateral Venous Dopplers are negative Xarelto 15 mg PO 2x/day 4). Hx Asthma Could there be a component of exacerbation? Chest X Ray 05/21/18 is unchanged from 03/01/18 Ipratropium via Nebulizer Q6H (DO NOT use Beta Agonist in light of AFib with RVR) Solumedrol 40 mg IV Q8H Spiriva 18 mcg 2 PO INH 1x/day Pulmonology Dr. Blackmon 5). Hx IDDM 2 HgBA1C 8.8 Hypoglycemic Protocol Lantus 30 units SC 1x/day (at home: NPH/Regular 70/30: 18 Units SC BID) RISS ACHS 6). Hx Seizure Disorder Last episode was "a few years ago" She does not follow any Neurologist as an oupatient and states her PMD Yeni follows her for this issue Levetiracetam 750 mg PO 2x/day Phenytoin Level < 3.0 Pnenytoin was discontinued secondary to interaction with Xarelto (Phenytoin decreases levels of Xarelto) and she was started on Levetiracetam Neurology Dr. Hernandez/Solomon Please note patient stated that she started her period again this morning. Her last menstrual period was 2 weeks ago. This has never happened before. She stated that she was seen by an unspecified Machine Shop Instructor on [facility] for a Pap Smear and [employer] Exam roughly 3 months ago. Monitor this for now and she was instructed to follow up with her Machine Shop Instructor upon discharge. Gurpreet Veronica D.O. Objective - Vital Signs/Intake and Output Vital Signs (last 24 hours): Temp Pulse Resp BP Pulse Ox 98.2 F 79 17 119/71 100 05/22/18 16:00 05/22/18 19:57 05/22/18 19:00 05/22/18 18:21 05/22/18 19:00 Intake and Output: 05/22/18 05/23/18 18:59 06:59 Intake Total 720 Output Total 1050 Balance -330 - Medications Medications: Current Medications Alprazolam (Xanax) 0.25 mg PO HS SIMIN Stop: 05/28/18 22:01 Last Admin: 05/21/18 21:29 Dose: 0.25 mg Dextrose (Dextrose 50% Inj) 0 ml IV STAT PRN; Protocol PRN Reason: Hypoglycemia Protocol Dextrose (Glutose 15) 0 gm PO ONCE PRN; Protocol PRN Reason: Hypoglycemia Protocol Famotidine (Pepcid) 20 mg IVP Q12 SIMIN Last Admin: 05/22/18 10:11 Dose: 20 mg Glucagon (Glucagen Diagnostic Kit) 0 mg IM STAT PRN; Protocol PRN Reason: Hypoglycemia Protocol Dextrose (Dextrose 5% In Water 1000 Ml) 1,000 mls @ 0 mls/hr IV .Q0M PRN; Protocol PRN Reason: Hypoglycemia Protocol Insulin Glargine (Lantus) 30 unit SC DAILY [facility] Last Admin: 05/22/18 10:12 Dose: 30 units Insulin Human Regular (Novolin R) 0 unit SC ACHS [facility]; Protocol Last Admin: 05/22/18 16:34 Dose: 12 u Ipratropium [place] (Atrovent) 0.5 mg IH RQ6 [facility] Last Admin: 05/22/18 19:57 Dose: 0.5 mg Levetiracetam (Keppra) 750 mg PO BID [facility] Last Admin: 05/22/18 17:32 Dose: 750 mg Methylprednisolone (Solu-Medrol) 40 mg IVP Q8H [facility] Last Admin: 05/22/18 19:48 Dose: 40 mg Montelukast Sodium (Singulair) 10 mg PO HS [facility] Last Admin: 05/21/18 21:27 Dose: 10 mg Pneumococcal Polyvalent Vaccine (Pneumovax 23 Vaccine) 0.5 ml IM .ONCE ONE Stop: 05/23/18 14:01 Promethazine HCl (Phenergan Syrup) 12.5 mg PO Q6 PRN PRN Reason: Cough Rivaroxaban (Xarelto) 15 mg PO BID [facility] Last Admin: 05/22/18 17:33 Dose: 15 mg Tiotropium [place] (Spiriva Inhalation Handihaler Device) 1 inhaler INH DAILY [facility] Tiotropium [place] (Spiriva) 18 mcg INH RQ24 [facility] Last Admin: 05/22/18 08:10 Dose: 18 mcg Verapamil HCl (Calan Sr Tab) 240 mg PO DAILY [facility] Last Admin: 05/22/18 10:12 Dose: 240 mg - Labs Labs: 05/22/18 06:19 05/22/18 06:19 PT 13.3 SECONDS (9.7-12.2) H 05/21/18 03:00 INR 1.2 05/21/18 03:00 APTT 37 SECONDS (21-34) H 05/21/18 03:00
[2018-05-22 20:49] LABS: BASO % 0.1 % (0.0-2.0); HEMOGLOBIN 10.3 g/dL (11.0-16.0); LYMPH # 0.9 K/uL (1.0-4.3); LYMPH % 8.2 % (20.0-40.0); MEAN CORPUSCULAR HEMOGLOBIN 24.7 pg (27.0-31.0); MEAN CORPUSCULAR HGB CONC 31.3 g/dL (33.0-37.0); MEAN PLATELET VOLUME 9.6 fL (7.2-11.7); MONO # 0.4 K/uL (0.0-0.8); MONO % 3.6 % (0.0-10.0); NEUT # 10.2 K/uL (1.8-7.0); NEUT % 88.1 % (50.0-75.0); NRBC % 0.1 % (0.0-2.0); PLATELET COUNT 305 K/uL (130-400); RBC 4.16 Mil/uL (3.80-5.20); RED CELL DISTRIBUTION WIDTH 17.1 % (11.5-14.5); WHITE BLOOD COUNT 11.5 K/uL (4.8-10.8)
[2018-05-22 20:56] LABS: INR 1.5; PROTHROMBIN TIME 16.6 SECONDS (9.7-12.2)
[2018-05-22 21:35] LABS: BANDS 1 % (0-2); LYMPHOCYTE 9 % (20-40); MONOCYTE 1 % (0-10); NEUTROPHIL 89 % (50-75); TOTAL CELLS COUNTED 100
[2018-05-22 21:36] LABS: ANISOCYTOSIS SLIGHT; PLATELET ESTIMATE NORMAL (NORMAL); POIKILOCYTOSIS SLIGHT
[2018-05-22] MEDS: Promethazine 12.5 mg/10 ml Syrup PO PRN (21:41)
[2018-05-23] MEDS: Ipratropium 0.02% Inhal Soln (0.5 mg/2.5 ml) UD IH SCH ×4 (01:15→19:50)
[2018-05-23] MEDS: MethylPREDNISolone 40 mg Vial IVP SCH ×3 (05:07→22:03)
[2018-05-23 06:19] LABS: BASO % 0.1 % (0.0-2.0); HEMOGLOBIN 10.4 g/dL (11.0-16.0); LYMPH # 1.2 K/uL (1.0-4.3); LYMPH % 11.2 % (20.0-40.0); MEAN CELL VOLUME 79.4 fL (81.0-99.0); MEAN CORPUSCULAR HEMOGLOBIN 25.5 pg (27.0-31.0); MEAN CORPUSCULAR HGB CONC 32.2 g/dL (33.0-37.0); MEAN PLATELET VOLUME 9.7 fL (7.2-11.7); MONO # 0.3 K/uL (0.0-0.8); NEUT # 9.3 K/uL (1.8-7.0); NEUT % 85.7 % (50.0-75.0); RBC 4.09 Mil/uL (3.80-5.20); RED CELL DISTRIBUTION WIDTH 17.1 % (11.5-14.5); WHITE BLOOD COUNT 10.8 K/uL (4.8-10.8)
[2018-05-23 06:33] LABS: ALB/GLOB RATIO 1.2 (1.0-2.1); ALBUMIN 3.9 g/dL (3.5-5.0); ALT/SGPT 7 U/L (9-52); AST/SGOT 17 U/L (14-36); BLOOD UREA NITROGEN 18 mg/dL (7-17); CALCIUM 8.9 mg/dl (8.6-10.4); GFR NON-AFRICAN AMERICAN > 60
[2018-05-23] MEDS: (Novolin R) Insulin Human Regular 100 units/ml vial SC SCH ×4 (07:58→22:04)
[2018-05-23 08:33] VITALS: RESP 20
[2018-05-23] MEDS: (Lantus) Insulin Glargine, Recombinant SC SCH (09:43)
[2018-05-23] MEDS: Verapamil 240 mg ER Tab PO SCH (09:43)
[2018-05-23] MEDS: Promethazine 12.5 mg/10 ml Syrup PO PRN (09:50)
[2018-05-23] MEDS: Tiotropium 18 mcg Cap For Inhalation INH SCH (13:15)
[2018-05-23] MEDS ORDERED: Pneumococcal 23-Valent Vaccine IM ONE (14:00)
--- NOTE | 2018-05-23 14:05 | CARD ---
APPROVED REPORT Date of service: 05/21/2018 EKG Measurement Heart [id number] <Conclusion> Normal sinus rhythm Normal ECG
--- NOTE | 2018-05-23 14:05 | CARD ---
APPROVED REPORT Date of service: 05/21/2018 EKG Measurement Heart [id number] <Conclusion> Normal sinus rhythm Low voltage QRS Prolonged QT Abnormal ECG
--- NOTE | 2018-05-23 14:05 | CARD ---
APPROVED REPORT Date of service: 05/21/2018 EKG Measurement Heart [id number] <Conclusion> Atrial fibrillation with rapid ventricular response ST depression, consider subendocardial injury Nonspecific T wave abnormality Abnormal ECG
--- NOTE | 2018-05-23 14:07 | CARD ---
APPROVED REPORT Date of service: 05/21/2018 EKG Measurement Heart [id number] <Conclusion> Sinus tachycardia with premature atrial complexes Low voltage QRS Nonspecific ST abnormality Abnormal ECG
--- NOTE | 2018-05-23 16:50 | NM ---
Date of service: 05/23/2018 COMPARISON: 05/21/2018, single-view chest TECHNIQUE: 12.3 mCi technetium 99-m Xe-133 Gas. 3.4 mCI technetium 99-m MAA administered intravenously. FINDINGS: VENTILATION COMPONENT: Normal. PERFUSION COMPONENT: Heterogeneous distribution of radionuclide. No geographic, segmental, lobar abnormalities apparent on the present examination. IMPRESSION: Low probability ventilation perfusion scan for pulmonary embolism.
--- NOTE | 2018-05-23 18:11 | CP.PCM.PN ---
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 Currently upon FULL ROS: Stated that her breathing was much better Dry nonproductive cough comes and goes and now occasional is able to bring up clear material NO palpitations NO Chest Pain NO abdominal pain NO n/v/d/c NO burning/pain with urination NO other complaints upon FULL ROS General: AAOx3, NAD and speaking in full sentences HEENT: NCA, PERRLA, EOMI, NO lymphadenopathy, NO thyromegaly, NO pharyngeal erythema/exudate Cardio: NS1 and NS2, NO M/R/G Resp: CTA B/L, Some minor diffuse end expiratory wheezing GI: BSx4, Soft, Central Obesity, NO HSM (limited due to body habitus), NO guarding/rebound tenderness Extremities: NO edema, Capillary refill is 2 seconds, Pulses are strong and equal Neuro: CN II through XII are grossly intact Assessment and Plan: 1). Afibrillation with RVR Rate is currently under control Verapmil 240 mg PO 1x/day Xarelto 15 mg PO 2x/day Cardiology Dr. Arvizu 2). Abrupt SOB while layding down at home This is the complaint that prompted her to call EMS Considering her history of recurrently LE DVTs could there be a PE? Unfortunately, CT Angio Chest could not be performed due to IV access V/Q Scan was low probability for DVT Patient is already on Xarelto 15 mg PO 2x/day 3). Hx Recurrently LE DVTs Bilateral Venous Dopplers are negative Xarelto 15 mg PO 2x/day 4). Hx Asthma Could there be a component of exacerbation? Chest X Ray 05/21/18 is unchanged from 03/01/18 Ipratropium via Nebulizer Q6H (DO NOT use Beta Agonist in light of AFib with RVR) Solumedrol 40 mg IV Q12H: reduced from Q8H Spiriva 18 mcg 2 PO INH 1x/day Pulmonology Dr. Blackmon 5). Hx IDDM 2 HgBA1C 8.8 Hypoglycemic Protocol Lantus 30 units SC 1x/day (at home: NPH/Regular 70/30: 18 Units SC BID) RISS ACHS 6). Hx Seizure Disorder Last episode was "a few years ago" She does not follow any Neurologist as an oupatient and states her PMD Yeni follows her for this issue Levetiracetam 750 mg PO 2x/day Phenytoin Level < 3.0 Pnenytoin was discontinued secondary to interaction with Xarelto (Phenytoin decreases levels of Xarelto) and she was started on Levetiracetam Neurology Dr. Hernandez/Solomon Please note patient stated that she started her period again on 05/22/18. Her last menstrual period was 2 weeks ago. This has never happened before. She stated that she was seen by an unspecified Attendance Clerk on [facility] for a Pap Smear and [employer] Exam roughly 3 months ago. She stated 05/23/18 that it is more clear discharge than bloody. Monitor this for now and she was instructed to follow up with her Attendance Clerk upon discharge. If patient continues to improve, Medicine Team will likely discharge patient on 05/24/18. Gurpreet Veronica D.O. Objective - Vital Signs/Intake and Output Vital Signs (last 24 hours): Temp Pulse Resp BP Pulse Ox 97.4 F L 64 20 137/86 100 05/23/18 15:35 05/23/18 15:35 05/23/18 15:35 05/23/18 15:35 05/23/18 15:35 Intake and Output: 05/23/18 05/23/18 06:59 18:59 Intake Total 500 Output Total 800 Balance -300 - Medications Medications: Current Medications Alprazolam (Xanax) 0.25 mg PO HS SIMIN Stop: 05/28/18 22:01 Last Admin: 05/22/18 21:44 Dose: 0.25 mg Dextrose (Dextrose 50% Inj) 0 ml IV STAT PRN; Protocol PRN Reason: Hypoglycemia Protocol Dextrose (Glutose 15) 0 gm PO ONCE PRN; Protocol PRN Reason: Hypoglycemia Protocol Famotidine (Pepcid) 20 mg IVP Q12 SIMIN Last Admin: 05/23/18 09:42 Dose: 20 mg Glucagon (Glucagen Diagnostic Kit) 0 mg IM STAT PRN; Protocol PRN Reason: Hypoglycemia Protocol Dextrose (Dextrose 5% In Water 1000 Ml) 1,000 mls @ 0 mls/hr IV .Q0M PRN; Protocol PRN Reason: Hypoglycemia Protocol Insulin Glargine (Lantus) 30 unit SC DAILY [facility] Last Admin: 05/23/18 09:43 Dose: 30 units Insulin Human Regular (Novolin R) 0 unit SC ACHS SIMIN; Protocol Last Admin: 05/23/18 17:28 Dose: 8 u Ipratropium [place] (Atrovent) 0.5 mg IH RQ6 [facility] Last Admin: 05/23/18 13:15 Dose: 0.5 mg Levetiracetam (Keppra) 750 mg PO BID [facility] Last Admin: 05/23/18 17:26 Dose: 750 mg Methylprednisolone (Solu-Medrol) 40 mg IVP Q12 [facility] Montelukast Sodium (Singulair) 10 mg PO HS [facility] Last Admin: 05/22/18 21:44 Dose: 10 mg Promethazine HCl (Phenergan Syrup) 12.5 mg PO Q6 PRN PRN Reason: Cough Last Admin: 05/23/18 09:50 Dose: 12.5 mg Rivaroxaban (Xarelto) 15 mg PO BID [facility] Last Admin: 05/23/18 17:26 Dose: 15 mg Tiotropium [place] (Spiriva Inhalation Handihaler Device) 1 inhaler INH DAILY [facility] Tiotropium [place] (Spiriva) 18 mcg INH RQ24 [facility] Last Admin: 05/23/18 13:15 Dose: 18 mcg Verapamil HCl (Calan Sr Tab) 240 mg PO DAILY [facility] Last Admin: 05/23/18 09:43 Dose: 240 mg - Labs Labs: 05/23/18 06:08 05/23/18 06:07 PT 16.6 SECONDS (9.7-12.2) H 05/22/18 20:44 INR 1.5 05/22/18 20:44 APTT 44 SECONDS (21-34) H D 05/22/18 20:44
--- NOTE | 2018-05-23 18:56 | PN ---
DATE: 05/23/2018 SUBJECTIVE: The patient complains of sharp chest pain. She is mildly wheezing. PHYSICAL EXAMINATION: VITAL SIGNS: Blood pressure 138/87, heart rate 62, temperature 97.4, respirations 20. HEENT: Normocephalic. CHEST: Scattered bilateral wheezing. HEART: S1 and S2 regular. EXTREMITIES: 1+ pitting edema. LABORATORY DATA: Today's SMA-7 is within normal limits except for glucose of 381 and BUN of 18. Today's hemoglobin and hematocrit 10.4 and 32.5, white count and platelet count are within normal limits. ASSESSMENT: 1. Atypical chest pain. 2. Bronchospasm. 3. Morbid obesity. 4. Diabetes mellitus. 5. History of deep venous thrombosis and pulmonary embolism in the past. RECOMMENDATIONS: Continue current Atrovent inhaler, continue Keppra 750 mg twice a day, Pepcid 20 mg twice a day, Solu-Medrol 40 mg every 8 hours, Xarelto 15 mg twice a day and we will order chest CT angio to rule out pulmonary embolism. James Arvizu MD
[2018-05-24] MEDS: Ipratropium 0.02% Inhal Soln (0.5 mg/2.5 ml) UD IH SCH ×3 (02:25→13:45)
[2018-05-24] MEDS ORDERED: (Novolin R) Insulin Human Regular 100 units/ml vial SC ONE (03:03)
--- NOTE | 2018-05-24 07:29 | CP.PCM.DIS ---
<Gilberto Larson - Last Filed: 05/24/18 15:21> Provider - Provider Date of Admission: 05/21/18 05:10 Attending physician: Gurpreet Veronica MD Consults: 05/21/18 05:28 Cardiology Consult Routine Comment: Consulting Provider: James Arvizu Consulting Physician: James Arvizu Reason for Consult: afib with RVR Neurology Consult Routine Comment: Consulting Provider: Ricky Hernandez Consulting Physician: Ricky Hernandez Reason for Consult: seizure disorder 05/21/18 09:52 Pulmonology Consult Routine Comment: Consulting Provider: Suman Blackmon Consulting Physician: Suman Blackmon Reason for Consult: Asthma Exacerbation. Does NOT see Pulm outpatient Time Spent in preparation of Discharge (in minutes): 45 Diagnosis - Discharge Diagnosis (1) Asthma Status: Resolved (2) Atrial fibrillation with rapid ventricular response Status: Resolved (3) Chest pain Status: Resolved (4) DVT (deep venous thrombosis) Status: Resolved (5) Diabetes Status: Chronic (6) Seizure disorder Status: Chronic Hospital Course - Lab Results Lab Results: Micro Results 05/21/18 03:00 Blood Blood Culture - Preliminary NO GROWTH AFTER 3 DAYS 05/21/18 03:30 Blood Blood Culture - Preliminary NO GROWTH AFTER 3 DAYS 05/21/18 10:02 Naris MRSA Culture (Admit) - Final MRSA NOT DETECTED Most Recent Lab Values WBC 10.8 K/uL (4.8-10.8) 05/23/18 06:08 RBC 4.09 Mil/uL (3.80-5.20) 05/23/18 06:08 Hgb 10.4 g/dL (11.0-16.0) L 05/23/18 06:08 Hct 32.5 % (34.0-47.0) L 05/23/18 06:08 MCV 79.4 fL (81.0-99.0) L 05/23/18 06:08 MCH 25.5 pg (27.0-31.0) L 05/23/18 06:08 MCHC 32.2 g/dL (33.0-37.0) L 05/23/18 06:08 RDW 17.1 % (11.5-14.5) H 05/23/18 06:08 Plt Count 305 K/uL (130-400) 05/23/18 06:08 MPV 9.7 fL (7.2-11.7) 05/23/18 06:08 Neut % (Auto) 85.7 % (50.0-75.0) H 05/23/18 06:08 Lymph % (Auto) 11.2 % (20.0-40.0) L 05/23/18 06:08 [place] % (Auto) 3.0 % (0.0-10.0) 05/23/18 06:08 Eos % (Auto) 0.0 % (0.0-4.0) 05/23/18 06:08 Baso % (Auto) 0.1 % (0.0-2.0) 05/23/18 06:08 Neut # (Auto) 9.3 K/uL (1.8-7.0) H 05/23/18 06:08 Lymph # (Auto) 1.2 K/uL (1.0-4.3) 05/23/18 06:08 [place] # (Auto) 0.3 K/uL (0.0-0.8) 05/23/18 06:08 Eos # (Auto) 0.0 K/uL (0.0-0.7) 05/23/18 06:08 Baso # (Auto) 0.0 K/uL (0.0-0.2) 05/23/18 06:08 Neutrophils % (Manual) 89 % (50-75) H 05/22/18 20:44 Band Neutrophils % 1 % (0-2) 05/22/18 20:44 Lymphocytes % (Manual) 9 % (20-40) L 05/22/18 20:44 Monocytes % (Manual) 1 % (0-10) 05/22/18 20:44 Basophils % (Manual) 1 % (0-2) 05/21/18 03:00 Platelet Estimate Normal (NORMAL) 05/22/18 20:44 Hypochromasia (manual) Slight 05/22/18 06:19 Poikilocytosis (manual Slight 05/22/18 20:44 Anisocytosis (manual) Slight 05/22/18 20:44 Microcytosis (manual) Slight 05/21/18 03:00 PT 16.6 SECONDS (9.7-12.2) H 05/22/18 20:44 INR 1.5 05/22/18 20:44 APTT 44 SECONDS (21-34) H D 05/22/18 20:44 D-Dimer, Quantitative < 200 ng/mlDDU (0-243) 05/22/18 12:08 Puncture Site Rra 05/21/18 08:49 pCO2 31 mm/Hg (35-45) L 05/21/18 08:49 pO2 185 mm/Hg (80-100) H 05/21/18 08:49 HCO3 22.3 mmol/L (21-28) 05/21/18 08:49 ABG pH 7.42 (7.35-7.45) 05/21/18 08:49 ABG Total CO2 21.1 mmol/L (22-28) L 05/21/18 08:49 ABG O2 Saturation 99.3 % (95-98) H 05/21/18 08:49 ABG Base Excess -3.4 mmol/L (-2.0-3.0) L 05/21/18 08:49 Balwinder Test Pos 05/21/18 08:49 ABG Potassium 3.7 mmol/L (3.6-5.2) 05/21/18 08:49 A-a O2 Difference 133.0 mm/Hg 05/21/18 08:49 Respiratory Index 0.7 05/21/18 08:49 Sodium 136.0 mmol/l (132-148) 05/21/18 08:49 Chloride 107.0 mmol/L (98-107) 05/21/18 08:49 Glucose 366 mg/dl (65-105) H 05/21/18 08:49 Lactate 1.9 mmol/L (0.7-2.1) 05/21/18 08:49 Vent Mode Bipap 05/21/18 08:49 FiO2 50.0 % 05/21/18 08:49 Inspiratory BiPAP 12 05/21/18 08:49 Expiratory BiPAP 6 05/21/18 08:49 Crit Value Called To Lissette amanda 05/21/18 05:55 Crit Value Called By Tiffany rt 05/21/18 05:55 Crit Value Read Back Y 05/21/18 05:55 Blood Gas Notified Time 608 05/21/18 05:55 Sodium 133 mmol/L (132-148) 05/23/18 06:07 Potassium 4.8 mmol/L (3.6-5.2) 05/23/18 06:07 Chloride 100 mmol/L (98-107) 05/23/18 06:07 Carbon Dioxide 28 mmol/L (22-30) 05/23/18 06:07 Anion Gap 11 (10-20) 05/23/18 06:07 BUN 18 mg/dL (7-17) H 05/23/18 06:07 Creatinine 0.7 mg/dL (0.7-1.2) 05/23/18 06:07 Est GFR ( Amer) > 60 05/23/18 06:07 Est GFR (Non-Af Amer) > 60 05/23/18 06:07 POC Glucose (mg/dL) 437 mg/dL (65-110) H* 05/24/18 02:49 Random Glucose 381 mg/dL (65-105) H D 05/23/18 06:07 Hemoglobin A1c 8.8 % (4.2-6.5) H 05/21/18 05:45 Calcium 8.9 mg/dl (8.6-10.4) 05/23/18 06:07 Phosphorus 2.3 mg/dL (2.5-4.5) L 05/23/18 06:07 Magnesium 2.4 mg/dL (1.6-2.3) H 05/23/18 06:07 Total Bilirubin 0.3 mg/dL (0.2-1.3) 05/23/18 06:07 AST 17 U/L (14-36) 05/23/18 06:07 ALT 7 U/L (9-52) L D 05/23/18 06:07 Alkaline Phosphatase 93 U/L (38-126) 05/23/18 06:07 Total Creatine Kinase 118 U/L (30-135) 05/21/18 15:21 CK-MB (Mass) 1.23 ng/mL (0.0-3.38) 05/21/18 15:21 Troponin I < 0.0120 ng/mL (0.00-0.120) 05/21/18 15:21 NT-Pro-B Natriuret Pep 580 pg/mL (0-900) 05/21/18 03:25 Total Protein 7.3 g/dL (6.3-8.3) 05/23/18 06:07 Albumin 3.9 g/dL (3.5-5.0) 05/23/18 06:07 Globulin 3.4 gm/dL (2.2-3.9) 05/23/18 06:07 Albumin/Globulin Ratio 1.2 (1.0-2.1) 05/23/18 06:07 Triglycerides 90 mg/dL (0-149) 05/21/18 05:45 Cholesterol 140 mg/dL (0-199) 05/21/18 05:45 LDL Cholesterol Direct 81 mg/dL (0-129) 05/21/18 05:45 HDL Cholesterol 40 mg/dL (30-70) 05/21/18 05:45 TSH 3rd Generation 0.78 mIU/L (0.46-4.68) 05/21/18 05:45 Arterial Blood Potassium 3.7 mmol/L (3.6-5.2) 05/21/18 08:49 Phenytoin < 3.0 ug/mL (10-20) L 05/21/18 05:18 C. 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 Denies fever, chills, chest pain, palpitations, abdominal pain, n/v/d, hematochezia, melena, recent travel. While in the ED pt was noted to be in Afib with RVR (HR 200s). In the ED, pt received Cardizem 20 mg IVP x2, Magnesium 2g IVPB, Metoprolol 5 mg IVP x2, Verapamil 2.5 mg IVP x2 PMD: none PMH:Recurrent b/l LE DVTs- denies h/o PEs, on Xarelto >1 year, T2DM, morbid Obesity (BMI 56), Asthma, Seizure disorder PSH: Cholecystectomy Meds:xarelto 20 mg daily, spiriva with handihaler 18 mcg - one puff daily, breo ellipta 100/25 - one puff daily, phenytoin 100 mg PO BID, lopressor 25 mg PO BID - take one pill twice daily, lantus 30U SC HS - 30 units before bedtime, novolog 14U SC AC All: NKDA FH: CVAs SH: 7 children. On disability. Drinks alcohol occasionally. Denies tobacco and illicit drug use 52 year old female (PMHx: Recurrent LE DVTs on Xarelto, Atrial Fibrillation, IDDM 2, Seizure Disorder, Asthma, Morbid Obesity) was admitted to the ICU on 05/21/18 for further treatment for Afibrillation with RVR. Rate was ultimately controlled w/ Verapmil 240 mg PO 1x/day. Anti coag given,Xarelto 15 mg PO 2x/day.Cardiology Dr. Arvizu consulted. Unfortunately, CT Angio Chest could not be performed due to IV access V/Q Scan was low probability for DVT Bilateral Venous Dopplers are negative Likely asthamtic component to chest pain, Chest X Ray 05/21/18 is unchanged from 03/01/18. was given Ipratropium via Nebulizer Q6H (DO NOT use Beta Agonist in light of AFib with RVR) Solumedrol 40 mg IV Q12H: reduced from Q8H Spiriva 18 mcg 2 PO INH 1x/day Pulmonology Dr. Blackmon was consulted during stay DMR treated HgBA1C 8.8 Hypoglycemic Protocol Lantus 30 units SC 1x/day (at home: NPH/Regular 70/30: 18 Units SC BID) RISS ACHS Workup of seizure hx found a Phenytoin Level < 3.0 Pnenytoin was discontinued secondary to interaction with Xarelto (Phenytoin decreases levels of Xarelto) and she was started on Levetiracetam Neurology Dr. Hernandez/Solomon consulkted The following instructions were explained to patient and a copy will need to be provided to her upon discharge: 1). Schedule follow up with your primary care physician Dr. Wallace in the next 7 days. Please bring your discharge instructions with you for his review. 2). Schedule follow up with your Director Financial Analysis for your Asthma and scheduling of Sleep study which you stated that he wanted you to have done 1 month ago. 3). Schedule follow up with your Barrel Painter for your further evaluation of your mid- cycle period. 4). Please have the following medications filled at your pharmacy on your way home from the hospital. These are the only medications that you should be on. Please use as directed: Spiriva 18 mcg, 2 inhalations by mouth 1x/day (8 AM) via handihaler device), Dispense #30 Pepcid 20 mg, 1 tablet by mouth 1x/day (8 AM) while you are on the Prednisone Steroid Taper, Dispense #5 Insulin Human NPH/Regular (70/30), 18 units subcutaneous with breakfast (8 AM) and dinner (8 PM), Dispense 10 mL vial Keppra 750 mg, 1 tablet by mouth 1x/day (8 AM), Dispense #30 Singulair 10 mg, 1 tablet by mouth 1x/day (8 PM), Dispense #30 Xarelto 15 mg, 1 tablet bymouth 2x/day (8 AM and 8 PM), Dispense #60 Verapamil Sr 240 mg, 1 tablet by mouth 1x/day (8 AM), Dispense #30 Atorvastatin 10 mg, 1 tablet by mouth 1x/day (8 PM), Dispense #30 Lisinopril 2.5 mg, 1 tablet by mouth 1x/day (8 AM), Dispense #30 Box of Insulin Syringes and [place], Dispense #100 Prednisone 10 m tablets all at once by mouth at 8 AM on 05/25/18 4 tablets all at once by mouth at 8 AM on 05/26/18 3 tablets all at once by mouth at 8 AM on 05/27/18 2 tablets all at once by mouth at 8 AM on 05/28/18 1 tablet by mouth at 8 AM on 05/29/18 5). Please be careful of your sugar intake as you will be on Prednisone for the next 5 days 6). Please take care and be well. Gurpreet Veronica D.O. Discharge Exam - Head Exam Head Exam: ATRAUMATIC, NORMOCEPHALIC - Additional Findings Additional findings: General: AAOx3, NAD and speaking in full sentences HEENT: NCA, PERRLA, EOMI, NO lymphadenopathy, NO thyromegaly, NO pharyngeal erythema/exudate Cardio: NS1 and NS2, NO M/R/G Resp: CTA B/L, Still some minor diffuse end expiratory wheezing GI: BSx4, Soft, Central Obesity, NO HSM (limited due to body habitus), NO guarding/rebound tenderness Extremities: NO edema, Capillary refill is 2 seconds, Pulses are strong and equal Neuro: CN II through XII are grossly intact Discharge Plan - Discharge Medications Prescriptions: Atorvastatin [Lipitor] 10 mg PO DIN #30 tab Insulin Human (NPH)/Regular [Novolin 70/30 (70/30 units/ml) 10 ml] 18 units SC BID 30 Days unit levETIRAcetam [Keppra] 750 mg PO DAILY #30 tab Lisinopril 2.5 mg PO DAILY #30 tablet Montelukast [Singulair] 10 mg PO HS #30 tab Pen Needle, Diabetic [Insulin Pen Needle] 1 each MC BID #100 dis.needle Rivaroxaban [Xarelto] 15 mg PO BID #60 tab Tiotropium [Spiriva] 18 mcg INH RQ24 #30 cap Tiotropium [place] Inhaler [Spiriva Inhalation Handihaler Device] 1 inhaler INH DAILY #1 inhaler Verapamil [Calan SR Tab] 240 mg PO DAILY #30 tab - Follow Up Plan Condition: GUARDED Disposition: HOME/ ROUTINE Instructions: Rivaroxaban, Asthma, Adult (DC), Atorvastatin, Levetiracetam, Lisinopril, Montelukast, Tiotropium, Verapamil Additional Instructions: The following instructions were explained to patient and a copy will need to be provided to her upon discharge: 1). Schedule follow up with your primary care physician Dr. Wallace in the next 7 days. Please bring your discharge instructions with you for his review. 2). Schedule follow up with your Director Financial Analysis for your Asthma and scheduling of Sleep study which you stated that he wanted you to have done 1 month ago. 3). Schedule follow up with your Barrel Painter for your further evaluation of your mid- cycle period. 4). Please have the following medications filled at your pharmacy on your way home from the hospital. These are the only medications that you should be on. Please use as directed: Spiriva 18 mcg, 2 inhalations by mouth 1x/day (8 AM) via handihaler device), Dispense #30 Pepcid 20 mg, 1 tablet by mouth 1x/day (8 AM) while you are on the Prednisone Steroid Taper, Dispense #5 Insulin Human NPH/Regular (70/30), 18 units subcutaneous with breakfast (8 AM) and dinner (8 PM), Dispense 10 mL vial Keppra 750 mg, 1 tablet by mouth 1x/day (8 AM), Dispense #30 Singulair 10 mg, 1 tablet by mouth 1x/day (8 PM), Dispense #30 Xarelto 15 mg, 1 tablet bymouth 2x/day (8 AM and 8 PM), Dispense #60 Verapamil Sr 240 mg, 1 tablet by mouth 1x/day (8 AM), Dispense #30 Atorvastatin 10 mg, 1 tablet by mouth 1x/day (8 PM), Dispense #30 Lisinopril 2.5 mg, 1 tablet by mouth 1x/day (8 AM), Dispense #30 Box of Insulin Syringes and [place], Dispense #100 Prednisone 10 m tablets all at once by mouth at 8 AM on 05/25/18 4 tablets all at once by mouth at 8 AM on 05/26/18 3 tablets all at once by mouth at 8 AM on 05/27/18 2 tablets all at once by mouth at 8 AM on 05/28/18 1 tablet by mouth at 8 AM on 05/29/18 5). Please be careful of your sugar intake as you will be on Prednisone for the next 5 days 6). Please take care and be well. Gurpreet Veronica D.O. Referrals: Forrest Wallace [Staff Provider] - <Gurpreet Veronica - Last Filed: 05/24/18 20:51> Provider - Provider Date of Admission: 05/21/18 05:10 Attending physician: Gurpreet Veronica MD Consults: 05/21/18 05:28 Cardiology Consult Routine Comment: Consulting Provider: James Arvizu Consulting Physician: James Arvizu Reason for Consult: afib with RVR Neurology Consult Routine Comment: Consulting Provider: Ricky Hernandez Consulting Physician: Ricky Hernandez Reason for Consult: seizure disorder 05/21/18 09:52 Pulmonology Consult Routine Comment: Consulting Provider: Suman Blackmon Consulting Physician: Suman Blackmon Reason for Consult: Asthma Exacerbation. Does NOT see Pulm outpatient Hospital Course - Lab Results Lab Results: Micro Results 05/21/18 03:00 Blood Blood Culture - Preliminary NO GROWTH AFTER 3 DAYS 05/21/18 03:30 Blood Blood Culture - Preliminary NO GROWTH AFTER 3 DAYS 05/21/18 10:02 Naris MRSA Culture (Admit) - Final MRSA NOT DETECTED Most Recent Lab Values WBC 9.0 K/uL (4.8-10.8) 05/24/18 08:04 RBC 4.21 Mil/uL (3.80-5.20) 05/24/18 08:04 Hgb 10.6 g/dL (11.0-16.0) L 05/24/18 08:04 Hct 33.1 % (34.0-47.0) L 05/24/18 08:04 MCV 78.7 fL (81.0-99.0) L 05/24/18 08:04 MCH 25.3 pg (27.0-31.0) L 05/24/18 08:04 MCHC 32.1 g/dL (33.0-37.0) L 05/24/18 08:04 RDW 16.6 % (11.5-14.5) H 05/24/18 08:04 Plt Count 285 K/uL (130-400) 05/24/18 08:04 MPV 9.6 fL (7.2-11.7) 05/24/18 08:04 Neut % (Auto) 79.9 % (50.0-75.0) H 05/24/18 08:04 Lymph % (Auto) 16.3 % (20.0-40.0) L 05/24/18 08:04 [place] % (Auto) 3.7 % (0.0-10.0) 05/24/18 08:04 Eos % (Auto) 0.0 % (0.0-4.0) 05/24/18 08:04 Baso % (Auto) 0.1 % (0.0-2.0) 05/24/18 08:04 Neut # (Auto) 7.2 K/uL (1.8-7.0) H 05/24/18 08:04 Lymph # (Auto) 1.5 K/uL (1.0-4.3) 05/24/18 08:04 [place] # (Auto) 0.3 K/uL (0.0-0.8) 05/24/18 08:04 Eos # (Auto) 0.0 K/uL (0.0-0.7) 05/24/18 08:04 Baso # (Auto) 0.0 K/uL (0.0-0.2) 05/24/18 08:04 Neutrophils % (Manual) 89 % (50-75) H 05/22/18 20:44 Band Neutrophils % 1 % (0-2) 05/22/18 20:44 Lymphocytes % (Manual) 9 % (20-40) L 05/22/18 20:44 Monocytes % (Manual) 1 % (0-10) 05/22/18 20:44 Basophils % (Manual) 1 % (0-2) 05/21/18 03:00 Platelet Estimate Normal (NORMAL) 05/22/18 20:44 Hypochromasia (manual) Slight 05/22/18 06:19 Poikilocytosis (manual Slight 05/22/18 20:44 Anisocytosis (manual) Slight 05/22/18 20:44 Microcytosis (manual) Slight 05/21/18 03:00 PT 16.6 SECONDS (9.7-12.2) H 05/22/18 20:44 INR 1.5 05/22/18 20:44 APTT 44 SECONDS (21-34) H D 05/22/18 20:44 D-Dimer, Quantitative < 200 ng/mlDDU (0-243) 05/22/18 12:08 Puncture Site Rra 05/21/18 08:49 pCO2 31 mm/Hg (35-45) L 05/21/18 08:49 pO2 185 mm/Hg (80-100) H 05/21/18 08:49 HCO3 22.3 mmol/L (21-28) 05/21/18 08:49 ABG pH 7.42 (7.35-7.45) 05/21/18 08:49 ABG Total CO2 21.1 mmol/L (22-28) L 05/21/18 08:49 ABG O2 Saturation 99.3 % (95-98) H 05/21/18 08:49 ABG Base Excess -3.4 mmol/L (-2.0-3.0) L 05/21/18 08:49 Balwinder Test Pos 05/21/18 08:49 ABG Potassium 3.7 mmol/L (3.6-5.2) 05/21/18 08:49 A-a O2 Difference 133.0 mm/Hg 05/21/18 08:49 Respiratory Index 0.7 05/21/18 08:49 Sodium 136.0 mmol/l (132-148) 05/21/18 08:49 Chloride 107.0 mmol/L (98-107) 05/21/18 08:49 Glucose 366 mg/dl (65-105) H 05/21/18 08:49 Lactate 1.9 mmol/L (0.7-2.1) 05/21/18 08:49 Vent Mode Bipap 05/21/18 08:49 FiO2 50.0 % 05/21/18 08:49 Inspiratory BiPAP 12 05/21/18 08:49 Expiratory BiPAP 6 05/21/18 08:49 Crit Value Called To Lissette rn 05/21/18 05:55 Crit Value Called By Tiffany rt 05/21/18 05:55 Crit Value Read Back Y 05/21/18 05:55 Blood Gas Notified Time 608 05/21/18 05:55 Sodium 135 mmol/L (132-148) 05/24/18 08:04 Potassium 4.6 mmol/L (3.6-5.2) 05/24/18 08:04 Chloride 96 mmol/L (98-107) L 05/24/18 08:04 Carbon Dioxide 33 mmol/L (22-30) H 05/24/18 08:04 Anion Gap 11 (10-20) 05/24/18 08:04 BUN 16 mg/dL (7-17) 05/24/18 08:04 Creatinine 0.7 mg/dL (0.7-1.2) 05/24/18 08:04 Est GFR ( Amer) > 60 05/24/18 08:04 Est GFR (Non-Af Amer) > 60 05/24/18 08:04 POC Glucose (mg/dL) 361 mg/dL (65-110) H 05/24/18 16:52 Random Glucose 363 mg/dL (65-105) H 05/24/18 08:04 Hemoglobin A1c 8.8 % (4.2-6.5) H 05/21/18 05:45 Calcium 9.0 mg/dl (8.6-10.4) 05/24/18 08:04 Phosphorus 2.7 mg/dL (2.5-4.5) 05/24/18 08:04 Magnesium 2.2 mg/dL (1.6-2.3) 05/24/18 08:04 Total Bilirubin 0.4 mg/dL (0.2-1.3) 05/24/18 08:04 AST 18 U/L (14-36) 05/24/18 08:04 ALT 11 U/L (9-52) 05/24/18 08:04 Alkaline Phosphatase 91 U/L (38-126) 05/24/18 08:04 Total Creatine Kinase 118 U/L (30-135) 05/21/18 15:21 CK-MB (Mass) 1.23 ng/mL (0.0-3.38) 05/21/18 15:21 Troponin I < 0.0120 ng/mL (0.00-0.120) 05/21/18 15:21 NT-Pro-B Natriuret Pep 580 pg/mL (0-900) 05/21/18 03:25 Total Protein 7.3 g/dL (6.3-8.3) 05/24/18 08:04 Albumin 3.9 g/dL (3.5-5.0) 05/24/18 08:04 Globulin 3.4 gm/dL (2.2-3.9) 05/24/18 08:04 Albumin/Globulin Ratio 1.2 (1.0-2.1) 05/24/18 08:04 Triglycerides 90 mg/dL (0-149) 05/21/18 05:45 Cholesterol 140 mg/dL (0-199) 05/21/18 05:45 LDL Cholesterol Direct 81 mg/dL (0-129) 05/21/18 05:45 HDL Cholesterol 40 mg/dL (30-70) 05/21/18 05:45 TSH 3rd Generation 0.78 mIU/L (0.46-4.68) 05/21/18 05:45 Arterial Blood Potassium 3.7 mmol/L (3.6-5.2) 05/21/18 08:49 Phenytoin < 3.0 ug/mL (10-20) L 05/21/18 05:18 C. difficile Ag & Toxin Negative (NEGATIVE) 05/21/18 07:54 Influenza Typ A,B (EIA) Negative for flu a/b (NEGATIVE) 05/21/18 03:00 Attending/Attestation - Attestation I have personally seen and examined this patient.: Yes I have fully participated in the care of the patient.: Yes I have reviewed all pertinent clinical information, including history, physical exam and plan: Yes Notes (Text): 05/24/18 20:50 Please see my Progress Note 05/24/17 Care of this patient was gone over in detail with resident Dr. Marsha Veronica D.O.
[2018-05-24 08:16] LABS: BASO % 0.1 % (0.0-2.0); HEMOGLOBIN 10.6 g/dL (11.0-16.0); LYMPH # 1.5 K/uL (1.0-4.3); LYMPH % 16.3 % (20.0-40.0); MEAN CELL VOLUME 78.7 fL (81.0-99.0); MEAN CORPUSCULAR HEMOGLOBIN 25.3 pg (27.0-31.0); MEAN CORPUSCULAR HGB CONC 32.1 g/dL (33.0-37.0); MEAN PLATELET VOLUME 9.6 fL (7.2-11.7); MONO # 0.3 K/uL (0.0-0.8); MONO % 3.7 % (0.0-10.0); NEUT # 7.2 K/uL (1.8-7.0); NEUT % 79.9 % (50.0-75.0); NRBC % 0.1 % (0.0-2.0); RBC 4.21 Mil/uL (3.80-5.20); RED CELL DISTRIBUTION WIDTH 16.6 % (11.5-14.5)
[2018-05-24 08:26] LABS: ALB/GLOB RATIO 1.2 (1.0-2.1); ALBUMIN 3.9 g/dL (3.5-5.0); ALT/SGPT 11 U/L (9-52); AST/SGOT 18 U/L (14-36); BLOOD UREA NITROGEN 16 mg/dL (7-17); GFR NON-AFRICAN AMERICAN > 60
[2018-05-24] MEDS: (Novolin R) Insulin Human Regular 100 units/ml vial SC SCH ×3 (08:26→16:30)
--- NOTE | 2018-05-24 09:07 | CP.PCM.PN ---
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 Currently upon FULL ROS: Stated that her breathing was much better and coughing is less NO palpitations NO Chest Pain NO abdominal pain NO n/v/d/c NO burning/pain with urination NO other complaints upon FULL ROS General: AAOx3, NAD and speaking in full sentences HEENT: NCA, PERRLA, EOMI, NO lymphadenopathy, NO thyromegaly, NO pharyngeal er ythema/exudate Cardio: NS1 and NS2, NO M/R/G Resp: CTA B/L, Still some minor diffuse end expiratory wheezing GI: BSx4, Soft, Central Obesity, NO HSM (limited due to body habitus), NO guarding/rebound tenderness Extremities: NO edema, Capillary refill is 2 seconds, Pulses are strong and equal Neuro: CN II through XII are grossly intact Assessment and Plan: 1). Afibrillation with RVR Rate is currently under control Verapmil 240 mg PO 1x/day Xarelto 15 mg PO 2x/day Cardiology Dr. Arvizu 2). Abrupt SOB while layding down at home This is the complaint that prompted her to call EMS Considering her history of recurrently LE DVTs could there be a PE? Unfortunately, CT Angio Chest could not be performed due to IV access V/Q Scan was low probability for DVT Patient is already on Xarelto 15 mg PO 2x/day 3). Hx Recurrently LE DVTs Bilateral Venous Dopplers are negative Xarelto 15 mg PO 2x/day 4). Hx Asthma Could there be a component of exacerbation? Chest X Ray 05/21/18 is unchanged from 03/01/18 Ipratropium via Nebulizer Q6H (DO NOT use Beta Agonist in light of AFib with RVR) Solumedrol 40 mg IV Q12H: reduced from Q8H Spiriva 18 mcg 2 PO INH 1x/day Pulmonology Dr. Blackmon 5). Hx IDDM 2 HgBA1C 8.8 Hypoglycemic Protocol Lantus 30 units SC 1x/day (at home: NPH/Regular 70/30: 18 Units SC BID) RISS ACHS 6). Hx Seizure Disorder Last episode was "a few years ago" She does not follow any Neurologist as an oupatient and states her PMD Yeni follows her for this issue Levetiracetam 750 mg PO 2x/day Phenytoin Level < 3.0 Pnenytoin was discontinued secondary to interaction with Xarelto (Phenytoin decreases levels of Xarelto) and she was started on Levetiracetam Neurology Dr. Hernandez/Solomon Please note patient stated that she started her period again on 05/22/18. Her last menstrual period was 2 weeks ago. This has never happened before. She stated that she was seen by an unspecified Bonding Machine Operator on [facility] for a Pap Smear and CERTIFIED ORTHOTIST Exam roughly 3 months ago. She stated 05/23/18 that it is more clear discharge than bloody. She stated on 05/24/18 that there has been just a small amount of discharge this morning and mostly clear. She was instructed to follow up with her Bonding Machine Operator upon discharge. Patient is speaking full sentences NO accessory muscles of respiration use NO signs of respiratory distress End expiratory wheezing is now very faint Rate controlled Patient is stable for further management as an outpatient The following instructions were explained to patient and a copy will need to be provided to her upon discharge: 1). Schedule follow up with your primary care physician Dr. Wallace in the next 7 days. Please bring your discharge instructions with you for his review. 2). Schedule follow up with your Pad Machine Feeder for your Asthma and scheduling of Sleep study which you stated that he wanted you to have done 1 month ago. 3). Schedule follow up with your Bonding Machine Operator for your further evaluation of your mid- cycle period. 4). Please have the following medications filled at your pharmacy on your way home from the hospital. These are the only medications that you should be on. Please use as directed: Spiriva 18 mcg, 2 inhalations by mouth 1x/day (8 AM) via handihaler device), Dispense #30 Pepcid 20 mg, 1 tablet by mouth 1x/day (8 AM) while you are on the Prednisone Steroid Taper, Dispense #5 Insulin Human NPH/Regular (70/30), 18 units subcutaneous with breakfast (8 AM) and dinner (8 PM), Dispense 10 mL vial Keppra 750 mg, 1 tablet by mouth 1x/day (8 AM), Dispense #30 Singulair 10 mg, 1 tablet by mouth 1x/day (8 PM), Dispense #30 Xarelto 15 mg, 1 tablet bymouth 2x/day (8 AM and 8 PM), Dispense #60 Verapamil Sr 240 mg, 1 tablet by mouth 1x/day (8 AM), Dispense #30 Atorvastatin 10 mg, 1 tablet by mouth 1x/day (8 PM), Dispense #30 Lisinopril 2.5 mg, 1 tablet by mouth 1x/day (8 AM), Dispense #30 Box of Insulin Syringes and [place], Dispense #100 Prednisone 10 m tablets all at once by mouth at 8 AM on 05/25/18 4 tablets all at once by mouth at 8 AM on 05/26/18 3 tablets all at once by mouth at 8 AM on 05/27/18 2 tablets all at once by mouth at 8 AM on 05/28/18 1 tablet by mouth at 8 AM on 05/29/18 5). Please be careful of your sugar intake as you will be on Prednisone for the next 5 days 6). Please take care and be well. Gurpreet Veronica D.O. Objective - Vital Signs/Intake and Output Vital Signs (last 24 hours): Temp Pulse Resp BP Pulse Ox 97.8 F 61 20 148/93 H 98 05/24/18 08:35 05/24/18 08:35 05/24/18 08:35 05/24/18 08:35 05/24/18 08:35 Intake and Output: 05/24/18 05/24/18 06:59 18:59 Intake Total 590 Balance 590 - Medications Medications: Current Medications Alprazolam (Xanax) 0.25 mg PO HS SIMIN Stop: 05/28/18 22:01 Last Admin: 05/23/18 22:04 Dose: 0.25 mg Dextrose (Dextrose 50% Inj) 0 ml IV STAT PRN; Protocol PRN Reason: Hypoglycemia Protocol Dextrose (Glutose 15) 0 gm PO ONCE PRN; Protocol PRN Reason: Hypoglycemia Protocol Famotidine (Pepcid) 20 mg IVP Q12 SIMIN Last Admin: 05/23/18 22:03 Dose: 20 mg Glucagon (Glucagen Diagnostic Kit) 0 mg IM STAT PRN; Protocol PRN Reason: Hypoglycemia Protocol Dextrose (Dextrose 5% In Water 1000 Ml) 1,000 mls @ 0 mls/hr IV .Q0M PRN; Protocol PRN Reason: Hypoglycemia Protocol Insulin Glargine (Lantus) 30 unit SC DAILY [facility] Last Admin: 05/23/18 09:43 Dose: 30 units Insulin Human Regular (Novolin R) 0 unit SC ACHS [facility]; Protocol Last Admin: 05/24/18 08:26 Dose: 8 u Ipratropium [place] (Atrovent) 0.5 mg IH RQ6 [facility] Last Admin: 05/24/18 08:09 Dose: 0.5 mg Levetiracetam (Keppra) 750 mg PO BID [facility] Last Admin: 05/23/18 17:26 Dose: 750 mg Methylprednisolone (Solu-Medrol) 40 mg IVP Q12 [facility] Last Admin: 05/23/18 22:03 Dose: 40 mg Montelukast Sodium (Singulair) 10 mg PO HS [facility] Last Admin: 05/23/18 22:04 Dose: 10 mg Promethazine HCl (Phenergan Syrup) 12.5 mg PO Q6 PRN PRN Reason: Cough Last Admin: 05/23/18 09:50 Dose: 12.5 mg Rivaroxaban (Xarelto) 15 mg PO BID [facility] Last Admin: 05/23/18 17:26 Dose: 15 mg Tiotropium [place] (Spiriva Inhalation Handihaler Device) 1 inhaler INH DAILY [facility] Tiotropium [place] (Spiriva) 18 mcg INH RQ24 [facility] Last Admin: 05/23/18 13:15 Dose: 18 mcg Verapamil HCl (Calan Sr Tab) 240 mg PO DAILY [facility] Last Admin: 05/23/18 09:43 Dose: 240 mg - Labs Labs: 05/24/18 08:04 05/24/18 08:04 PT 16.6 SECONDS (9.7-12.2) H 05/22/18 20:44 INR 1.5 05/22/18 20:44 APTT 44 SECONDS (21-34) H D 05/22/18 20:44
[2018-05-24] MEDS: Verapamil 240 mg ER Tab PO SCH (09:09)
[2018-05-24] MEDS: MethylPREDNISolone 40 mg Vial IVP SCH (09:10)
[2018-05-24] MEDS: (Lantus) Insulin Glargine, Recombinant SC SCH (09:10)
[2018-05-24 16:05] VITALS: BP 150/83; PULSE 67; TEMP 98.1; O2SAT 100
[2018-05-24] MEDS ORDERED: Promethazine 6.25 MG/5 ML CUP PO PRN (16:45)
[2018-05-24] MEDS ORDERED: Pneumococcal 23-Valent Vaccine IM ONE (18:52)
--- NOTE | 2018-05-24 19:33 | PN ---
DATE: 05/24/2018 SUBJECTIVE: The patient denies any chest pain, shortness of breath has improved. PHYSICAL EXAMINATION: VITAL SIGNS: Blood pressure 140/93, heart 61, temperature 97.8, respirations 20. HEENT: Pale conjunctivae. CHEST: Diffuse bilateral rhonchi. HEART: S1, S2 regular and distant. ABDOMEN: Soft. EXTREMITIES: 1+ pitting edema. LABORATORY DATA: Today's hemoglobin and hematocrit 10.6 and 33.1. White count and platelet count are within normal limits. Today's SMA-7 is sodium 135, potassium 4.6, chloride 96,CO2 33, glucose 163, BUN 16, creatinine 0.7. A ventilation-perfusion scan was performed yesterday with low probability for pulmonary embolism. ASSESSMENT: 1. Atypical chest pain, myocardial infarction is ruled out. 2. History of deep venous thrombosis and pulmonary embolism in the past. The patient workup was negative for either deep venous thrombosis or pulmonary embolism. 3. Uncontrolled diabetes mellitus. 4. Morbid obesity. 5. Bronchial asthma. 6. Anemia. RECOMMENDATIONS: Continue current verapamil SR 240 mg once a day, Keppra 750 mg once a day, Solu-Medrol 40 mg intravenously every 12 hours, Singulair 10 mg once a day, Xanax 0.25 mg at bedtime, Xarelto at 15 mg p.o. twice a day. James Arvizu MD
== END 2018-05-24 20:25 | disposition home or self-care (01) | DRG 96 ==
LOC: C.ER 02:44 → C.9E 05:10 → C.9I 08:46 → C.3T 05-23 14:46
PROVIDERS: ADMIT Family Medicine; ATTEND Family Medicine
DX: J45.902 Unspecified asthma with status asthmaticus (principal); E87.6 Hypokalemia; E11.65 Type 2 diabetes mellitus with hyperglycemia; I48.0 Paroxysmal atrial fibrillation; I47.1 Supraventricular tachycardia; G40.909 Epilepsy, unspecified, not intractable, without status epilepticus; E83.39 Other disorders of phosphorus metabolism; E66.01 Morbid (severe) obesity due to excess calories; D64.9 Anemia, unspecified; Z79.01 Long term (current) use of anticoagulants; Z79.4 Long term (current) use of insulin; Z79.899 Other long term (current) drug therapy; Z86.711 Personal history of pulmonary embolism; Z86.718 Personal history of other venous thrombosis and embolism; Z90.49 Acquired absence of other specified parts of digestive tract

== ENCOUNTER 2018-08-15 19:57 | Emergency (ER) | payer MEDICAID | END 2018-08-16 01:12 | disposition home or self-care (01) | LOC: C.ER 19:57 | CPT/HCPCS: 80053; 81001; 82948; 83690; 84703; 85025; 93005; 96361; 96374; 96375; 99284; C9113; J2405; J7030 ==